=== PATIENT | female | born 1940 | race Caucasian/White ===

== ENCOUNTER 2024-10-10 14:43 | Inpatient (IN) | payer MEDICARE, SELFPAY ==
[2024-10-10] VITALS (10 sets, daily range): BP systolic 80–156; BP diastolic 40–100; PULSE 76–98; RESP 16–26; TEMP 36.1–37.1; O2SAT 92–98; BMI 23.6
--- NOTE | 2024-10-10 | ECG_ITS ---
Test Reason : ABD PAIN Blood Pressure : */* mmHG Vent. Rate : 77 BPM Atrial Rate : 77 BPM P-R Int : 146 ms QRS Dur : 74 ms QT Int : 396 ms P-R-T Axes : 51 10 58 degrees QTcB Int : 448 ms Sinus rhythm with Premature atrial complexes Otherwise normal ECG No previous ECGs available Referred By: Generic ED Physician Electronically Signed By: MADDIE JOHNSON
--- NOTE | ~2024-10-10 | CT_ITS ---
CLINICAL HISTORY: Severe diarrhea, severe left upper and left lower --- Additional Notes or Special I nstructions: R O diverticulitis, colitis, perforation CT abdomen and pelvis without contrast Comparison: None Findings: Examination is limited by without contrast. Lung bases are clear. No pleural effusion. Liver, Pancreas, Spleen show normal size, shape and attenuation on present unenhanced scan. No CBD dilatation. 2.2 cm nodule of the right adrenal gland is likely to be adenoma. No calcified gallstone in the gallbladder. The right kidney is unremarkable on the current noncontrast CT. Left total nephrectomy. The IVC, aorta and portal vein are within normal position and caliber. Severe Atherosclerosis calcification of the aorta. No evidence of retroperitoneal lymphadenopathy or ascites. Appendix is not visualized. 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 There is stool impaction of the rectum. Bowel wall thickening of the sigmoid colon and rectum with surrounding fat stranding. There is eccentric wall thickening of the rectum on axial image 63. Urinary bladder reveals normal lumen and schwab. Calcified uterine fibroid. Degenerative changes of the lumbar spine. Severe degenerative change of the left hip joint. IMPRESSION: Circumferential wall thickening of the sigmoid colon and rectum with surrounding fat stranding concerning for colitis. Area of eccentric wall thickening of the rectum. Correlation with colonoscopy findings is recommended to exclude a mass as indicated. No evidence of bowel perforation or abscess. Additional findings as above. This document has been electronically signed by: Jessica Bynum MD on 10/10/2024 19:28:31
[2024-10-10 15:03] LABS: MANUAL DIFF FLAG NO
[2024-10-10 15:05] LABS: Basophils Absolute Auto 0.1 X10*3/uL (0.0-0.2); Basophils Percent Auto 0.7 % (0-2); Eosinophils Absolute Auto 0.1 X10*3/uL (0.0-0.4); Hemoglobin 15.8 g/dl (12.0-16.0); Imm Gran Abs Auto 0.04 X10*3/uL (0.00-0.03); Imm Gran Pct Auto 0.4 % (0.0-0.4); Lymphocytes Absolute Auto 3.4 X10*3/uL (1.2-4.9); Lymphocytes Percent Auto 34.7 % (20-40); Mean Corpuscular HGB Conc 32.9 g/dl (31.0-35.0); Mean Corpuscular Hemoglobin 30.7 pg (27.0-33.0); Mean Corpuscular Volume 93.4 fL (80.0-98.0); Monocytes Absolute Auto 0.7 X10*3/uL (0.1-1.2); Monocytes Percent Auto 6.7 % (2-11); Neutrophils Absolute Auto 5.5 x10*3/uL (2.0-8.3); Neutrophils Percent Auto 56.5 % (45-73); Platelet Count 263 X10*3/uL (160-400); Red Blood Count 5.14 X10*6/uL (4.20-5.50); Red Cell Distribution Width 13.3 % (11.0-16.0); White Blood Count 9.7 X10*3/uL (4.8-10.8)
[2024-10-10 15:32] LABS: Alanine Aminotransferase 19 U/L (0-31); Albumin Level 4.1 g/dL (3.5-5.0); Alkaline Phosphatase 305 U/L (39-117); Anion Gap 21 (12-20); Aspartate Amino Transferase 27 U/L (5-31); Bilirubin Direct 0.2 mg/dL (0.0-0.5); Bilirubin Total 0.5 mg/dL (0.0-1.0); Blood Urea Nitrogen 35 mg/dL (9-16); Calcium 10.9 mg/dL (8.4-10.2); Carbon Dioxide 18 mmol/L (22-29); Chloride 106 mmol/L (96-108); Creatinine Clr Calc Pharmacy 31.4; Estimated Glomerular Filt Rate 45; Glucose Random 151 mg/dL (60-115); Lipase 47 U/L (8-78); Magnesium 2.5 mg/dL (1.6-2.6); Potassium 4.2 mmol/L (3.3-5.1); Sodium 141 mmol/L (135-145); Total Protein 7.2 g/dL (6.5-8.0)
[2024-10-10 15:48] LABS: Troponin-I High Sensitivity 2.9 ng/L (<3.5-17.0)
--- NOTE | 2024-10-10 15:49 | PC.NURSE ---
Patient presents to the ED from home c/o abdominal pain with nausea nonbloody V/D. Patient attempted to use bathroom at home and had witnessed syncopal episode, no fall. Symptoms started today. Patient had multiple episodes of large diahrrea. Stool was soft and became watery after 3 incontinence episodes. Abdomen soft non distended, + bowel sounds. Patient has 20G in left AC currently running NaCl 1 liter. blood collected/sent to lab. Stool sample collected and sent to lab. Patient still nauseous with dry heaving, no vomiting at this time. Daughter at bedside. Plan of care on going
--- NOTE | 2024-10-10 16:05 | ED.GENADULT ---
HPI - General Adult General Chief complaint: General Medical Stated complaint: SYNCOPAL EPISODE NAUSEA VOMITING Time Seen by Provider: 10/10/24 16:05 Source: patient and family (Daughter-Gayla) Mode of arrival: EMS Limitations: other (Memory deficits) History of Present Illness ED Provider: Dr. 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 Information came from the patient and the patient's daughter Gayla who is here in the emergency department with the patient. Breakfast this morning. She went out to lunch with her family and also ate a significant amount of food-the daughter states that she ate much more than usual got home at around 14:00 hours she had a sudden urge to move her bowels and had a large diarrheal stool. She then had a 2nd large diarrheal stool. She got up to try to wash her hands and felt lightheaded and dizzy as if she was going to pass out. The daughter was in the bathroom with the patient and lower the patient floor. The daughter states the patient had a loss of consciousness that lasted a proximally 5-10 minutes until the paramedics arrived on the scene. Here in the emergency department the patient had multiple episodes of loose watery stool-large volumes according to the nurse. There was no blood in the stool. The patient states that she has constipation that varies with diarrhea and she believes that she may have colon cancer but has refused getting a colonoscopy that has not been evaluated for chronic constipation/diarrhea. Review of systems was negative for fever, chills, cough, chest pain, shortness of breath, frequency, urgency or dysuria Related Data Allergies Allergy/AdvReac Type Severity Reaction Status Date / Time Gadolinium-Containing Allergy Unknown DIFFICULTY Verified 10/10/24 14:49 Contrast Medi BREATHING [GADOLINIUM-CONTAINING CONTRAST] Review of Systems Review of Systems: Yes all other systems are reviewed and are negative [facility] Past Medical History [facility] Narrative: Social history: She denies tobacco, alcohol and drug use. Social History Social History (System 03/15/23 @ 13:28 by Pilar Byers) Smoked in Last 30 Days: No Use of substances other than those prescribed or required for medical reasons: No Advance Directives: No Advance Directives Information Provided: No Do you have a plan to hurt others: No Plan Physical Exam ED Vital Signs: Vital Signs - 24 hr 10/10/24 14:57 10/10/24 15:12 10/10/24 16:11 Temperature 97.0 F 97.8 F Pulse Rate 86 76 83 Respiratory Rate 26 H 18 18 Blood Pressure 120/100 H 118/54 L 131/80 Pulse Oximetry 97 98 Oxygen Delivery Method Room Air Room Air 10/10/24 17:03 10/10/24 17:46 10/10/24 18:44 Temperature 98.3 F Pulse Rate 87 89 Respiratory Rate 18 16 16 Blood Pressure 126/81 Pulse Oximetry 97 93 Oxygen Delivery Method Room Air Room Air 10/10/24 18:49 10/10/24 19:50 Temperature 98.8 F Pulse Rate 86 Respiratory Rate 18 19 Blood Pressure 155/75 H Pulse Oximetry 92 Oxygen Delivery Method Room Air BMI result Body Mass Index 23.6 Vital signs revealed elevated respiratory rate of 26, elevated blood pressure 120/100 that has 97% on room air. Exam: General: Awake, alert , very anxious, does answer questions appropriately but sometimes defers to her daughter to help answer the question Head: Normocephalic, atraumatic EENT: PERRL, Lids normal, sclera normal, conjunctiva normal, nose normal , ears normal, throat without erythema or exudates Neck: Supple, no adenopathy Lung: breath sounds symmetric, no wheezing, rales or rhonchi Chest: symmetric movement, nontender Heart: regular rate and rhythm, normal S1, S2 no murmurs or rubs Abdomen: soft, moderate left upper quadrant tenderness, moderate to severe left lower quadrant tenderness, mild diffuse tenderness, normoactive bowel sounds, there is voluntary guarding when pushing on your left lower quadrant area but no involuntary guarding and no rebound Back: no vertebral tenderness, no CVAT Extremities: no deformities, she has difficulty moving her left lower extremity secondary to chronic left hip pain. Neuro: Awake, alert, oriented, normal speech, cranial nerves intact, moves all extremities symmetrically Psych: Pleasant, cooperative Medications Administered Discontinued Medications Generic Name Dose Route Start Last Admin Trade Name Freq PRN Reason Stop Dose Admin Diphenhydramine HCl 12.5 mg 10/10/24 16:53 10/10/24 17:02 Diphenhydramine Hcl 50 Mg/Ml Vial IVPUSH 10/10/24 16:54 12.5 mg ONCE ONE Administration Sodium Chloride 1,000 mls @ 999 mls/hr 10/10/24 16:19 10/10/24 19:25 Ns IV 10/10/24 17:19 Infused .Q1H1M STA Infusion Metoclopramide HCl 10 mg 10/10/24 16:53 10/10/24 17:02 Metoclopramide Hcl 10 Mg/2 Ml Vial IVPUSH 10/10/24 16:54 10 mg ONCE STA Administration Morphine Sulfate 2 mg 10/10/24 16:39 10/10/24 17:03 Morphine Sulfate 2 Mg/Ml Cartridge IVPUSH 10/10/24 16:40 2 mg ONCE ONE Administration Protocol Morphine Sulfate 2 mg 10/10/24 18:41 10/10/24 18:49 Morphine Sulfate 2 Mg/Ml Cartridge IVPUSH 10/10/24 18:42 2 mg ONCE ONE Administration Protocol Medical Decision Making Medical Decision Making MDM Narrative: 84-year-old female with a history of hypertension, benign left benign tumor with nephrectomy 15 years prior, TIA, left hip fracture 30 years prior with chronic left hip pain, appendectomy who presents emergency department for evaluation of sudden onset of nausea, vomiting, abdominal pain and syncope. Symptoms started at 14:00 hours after the patient ate lunch. Patient had 2 large diarrheal stools, had nausea with no vomiting, got up to wash her hands and had a witnessed syncopal episode by her daughter who was in the bathroom with the patient. Daughter lowered the patient to the floor. Patient had a proximally 5-10 minutes of loss of consciousness. Since presenting to the emergency department she is complaining of severe left lower abdominal pain, nausea in his had multiple episodes of large volume loose watery stools. Vital signs did reveal an elevated respiratory rate but I believe this is secondary to her anxiety. Some revealed left upper quadrant tenderness and moderate to severe left lower quadrant tenderness. Differential diagnosis: ?Includes but is not limited to viral syndrome, COVID-19, influenza, RSV, viral gastroenteritis, colitis, diverticulitis, perforation, pancreatitis, C difficile colitis, infectious diarrhea, malignancy, vasovagal syncope, anemia, electrolyte abnormalities Course: 17:08 My independent interpretation patient's laboratory evaluation is as follows: WBCs normal 9700 with a normal differential, no anemia with an H&H of 15.8 and 40.0. Bicarb low 18. Elevated anion gap 21. Elevated BUN 35 with a normal creatinine of 1.15. Glucose elevated 151. Alk-phos elevated 305. LFTs were normal. High sensitive troponin I was detectable but not elevated at 2.9. Lipase was normal. GI panel and C difficile PCR are pending. Your makes it worse twelve EKG was unremarkable. Given the severity of her pain and tenderness I did order a CT scan of the abdomen pelvis without IV contrast (the patient only has 1 kidney and she is concerned about getting IV contrast). Patient received Zofran 4 mg IV by the paramedics but she still having nausea and pain. I ordered morphine 2 mg IV, Reglan 5 mg IV and Benadryl 12.5 mg IV. She was also ordered to get normal saline IV x1 L. The patient continues to have large volume diarrheal output therefore I ordered a rectal tube. 19:51 My interpretation patient's laboratory evaluation is as follows: WBC was normal 9700 with no left shift. Bicarb was low 18. Anion gap was elevated 21. BUN was elevated 35 with a normal creatinine of 1.15 with a low GFR of 45. Glucose was elevated 151. Alk-phos elevated 305. High sensitive troponin I was detectable but not elevated at 2.9, repeat 2 hour has been ordered for 17:00 hours. LFTs were normal. Lipase was normal. Patient got some relief with the above treatment she states that her pain is still moderate and she is requesting a another dose of pain medications therefore she was given morphine 4 mg IV. 22:52 Repeat 2 hour troponin was below detectable limits suggesting the patient did not have myocardial injury is the cause for syncopal episode. The CT scan of the patient's abdomen pelvis without IV contrast is consistent with sigmoid colitis. Given this finding I did order blood cultures x2 and lactic acid. Patient will be treated with Levaquin 500 mg IV and Flagyl 500 mg IV. Patient continues to put a significant amount of diarrhea of the rectal tube. C diff studies were negative GI panel is pending. I did discuss admission with the covering hospitalist, Dr. Todd and the patient will be admitted for further management. Admission/Observation Consideration of admission/observation: Escalation of care including admission/observation considered (Yes) Consult Healthcare Provider Management of the patient was discussed with: Hospitalist (Dr. Todd) Lab Data MDM Lab Attestation statement: I reviewed the patient's lab results. 10/10/24 14:57 10/10/24 14:57 Labs: Lab Results 10/10/24 10/10/24 10/10/24 Range/Units 14:57 15:30 17:27 WBC 9.7 (4.8-10.8) X10*3/uL RBC 5.14 (4.20-5.50) X10*6/uL Hgb 15.8 (12.0-16.0) g/dl Hct 48.0 H (37.0-47.0) % MCV 93.4 (80.0-98.0) fL MCH 30.7 (27.0-33.0) pg MCHC 32.9 (31.0-35.0) g/dl RDW 13.3 (11.0-16.0) % Plt Count 263 (160-400) X10*3/uL MPV 11.0 (9.4-12.3) fL Immature Gran % (Auto) 0.4 (0.0-0.4) % Neut % (Auto) 56.5 (45-73) % Lymph % (Auto) 34.7 (20-40) % [place] % (Auto) 6.7 (2-11) % Eos % (Auto) 1.0 (0-4) % Baso % (Auto) 0.7 (0-2) % Lymph # (Auto) 3.4 (1.2-4.9) X10*3/uL [place] # (Auto) 0.7 (0.1-1.2) X10*3/uL Eos # (Auto) 0.1 (0.0-0.4) X10*3/uL Baso # (Auto) 0.1 (0.0-0.2) X10*3/uL Abs Immat Gran (auto) 0.04 H (0.00-0.03) X10*3/uL Absolute Neuts (auto) 5.5 (2.0-8.3) x10*3/uL Absolute Nucleated RBC 0.000 (0.0-0.012) X10*3/uL Nucleated RBC % (auto) 0.0 (0.0-0.2) /100WBC Sodium 141 (135-145) mmol/L Potassium 4.2 (3.3-5.1) mmol/L Chloride 106 (96-108) mmol/L Carbon Dioxide 18 L (22-29) mmol/L Anion Gap 21 H (12-20) BUN 35 H (9-16) mg/dL Creatinine 1.15 (0.5-1.4) mg/dL Estim Creat Clear Calc 31.4 Estimated GFR 45 Random Glucose 151 H (60-115) mg/dL Calcium 10.9 H (8.4-10.2) mg/dL Magnesium 2.5 (1.6-2.6) mg/dL Total Bilirubin 0.5 (0.0-1.0) mg/dL Direct Bilirubin 0.2 (0.0-0.5) mg/dL AST 27 (5-31) U/L ALT 19 (0-31) U/L Alkaline Phosphatase 305 H (39-117) U/L Troponin I High Sens 2.9 (<3.5-17.0) ng/L Total Protein 7.2 (6.5-8.0) g/dL Albumin 4.1 (3.5-5.0) g/dL Lipase 47 (8-78) U/L C. difficile Tox B Gene NEGATIVE (Negative) Influenza Type A (PCR) NEGATIVE (Negative) Influenza Type B (PCR) NEGATIVE (Negative) RSV RNA Qual (PCR) NEGATIVE (Negative) SARS-CoV-2 RNA (RT-PCR) NEGATIVE (Negative) 10/10/24 Range/Units 19:39 WBC (4.8-10.8) X10*3/uL RBC (4.20-5.50) X10*6/uL Hgb (12.0-16.0) g/dl Hct (37.0-47.0) % MCV (80.0-98.0) fL MCH (27.0-33.0) pg MCHC (31.0-35.0) g/dl RDW (11.0-16.0) % Plt Count (160-400) X10*3/uL MPV (9.4-12.3) fL Immature Gran % (Auto) (0.0-0.4) % Neut % (Auto) (45-73) % Lymph % (Auto) (20-40) % [place] % (Auto) (2-11) % Eos % (Auto) (0-4) % Baso % (Auto) (0-2) % Lymph # (Auto) (1.2-4.9) X10*3/uL [place] # (Auto) (0.1-1.2) X10*3/uL Eos # (Auto) (0.0-0.4) X10*3/uL Baso # (Auto) (0.0-0.2) X10*3/uL Abs Immat Gran (auto) (0.00-0.03) X10*3/uL Absolute Neuts (auto) (2.0-8.3) x10*3/uL Absolute Nucleated RBC (0.0-0.012) X10*3/uL Nucleated RBC % (auto) (0.0-0.2) /100WBC Sodium (135-145) mmol/L Potassium (3.3-5.1) mmol/L Chloride (96-108) mmol/L Carbon Dioxide (22-29) mmol/L Anion Gap (12-20) BUN (9-16) mg/dL Creatinine (0.5-1.4) mg/dL Estim Creat Clear Calc Estimated GFR Random Glucose (60-115) mg/dL Calcium (8.4-10.2) mg/dL Magnesium (1.6-2.6) mg/dL Total Bilirubin (0.0-1.0) mg/dL Direct Bilirubin (0.0-0.5) mg/dL AST (5-31) U/L ALT (0-31) U/L Alkaline Phosphatase (39-117) U/L Troponin I High Sens < 2.7 (<3.5-17.0) ng/L Total Protein (6.5-8.0) g/dL Albumin (3.5-5.0) g/dL Lipase (8-78) U/L C. difficile Tox B Gene (Negative) Influenza Type A (PCR) (Negative) Influenza Type B (PCR) (Negative) RSV RNA Qual (PCR) (Negative) SARS-CoV-2 RNA (RT-PCR) (Negative) Independent Interpretation I performed an independent interpretation of an: EKG Interpretation: My independent interpretation patient's 12 EKG done on 07/13/2024 at 15:17 hours is as follows: Normal sinus rhythm with a rate of 77, normal TX interval, QRS duration QTC interval, occasional PAC, no significant T-wave abnormalities, no ST segment elevation or depression. There is no old EKG for comparison. Radiology Impression Discussion of test interpretation with radiology: I have reviewed the radiologist's reading. Radiologist Impression: CT abdomen and pelvis without contrast Comparison: None Findings: Examination is limited by without contrast. Lung bases are clear. No pleural effusion. Liver, Pancreas, Spleen show normal size, shape and attenuation on present unenhanced scan. No CBD dilatation. 2.2 cm nodule of the right adrenal gland is likely to be adenoma. No calcified gallstone in the gallbladder. The right kidney is unremarkable on the current noncontrast CT. Left total nephrectomy. The IVC, aorta and portal vein are within normal position and caliber. Severe Atherosclerosis calcification of the aorta. No evidence of retroperitoneal lymphadenopathy or ascites. Appendix is not visualized. 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 There is stool impaction of the rectum. Bowel wall thickening of the sigmoid colon and rectum with surrounding fat stranding. There is eccentric wall thickening of the rectum on axial image 63. Urinary bladder reveals normal lumen and schwab. Calcified uterine fibroid. Degenerative changes of the lumbar spine. Severe degenerative change of the left hip joint. IMPRESSION: Circumferential wall thickening of the sigmoid colon and rectum with surrounding fat stranding concerning for colitis. Area of eccentric wall thickening of the rectum. Correlation with colonoscopy findings is recommended to exclude a mass as indicated. No evidence of bowel perforation or abscess. Additional findings as above. This document has been electronically signed by: Jessica Bynum MD on 10/10/2024 19:28:31 Independent Historian Clinical information obtained from an independent historian. History obtained from or confirmed by: Other (Daughter-Gayla) Chronic Conditions Patient?s care impacted by: Hypertension Critical Care Time Critical Care Time Critical Care Time: Yes Total Critical Care Time: 35 Attestation: Critical Care: The patient was critically ill with a high probability of imminent or life threatening deterioration. I spent greater than 30 minutes of discontinuous time evaluating the patient,delivering critical care at the bedside, discussing and evaluating pertinent data with consultants. Critical care time does not include time spent performing separately billable procedures or teaching. Total time spent performing critical care was 35 minutes. Discharge Plan Discharge Print Language: Wolof
--- NOTE | 2024-10-10 16:15 | PC.NURSE ---
3rd large bout of diarrhea. overfilling bedpan. MD at bedside and aware of volume loss. Pt remains alert, following commands requires frequent reassurance. LLQ tender.
[2024-10-10] MEDS: diphenhydrAMINE HCL 50 MG/ML VIAL 12.5 MG IVPUSH (17:02)
[2024-10-10] MEDS: Metoclopramide HCl 10 MG/2 ML VIAL IVPUSH (17:02)
[2024-10-10] MEDS: 0.9 % Sodium Chloride 1,000 ML 999 ML IV (17:02)
[2024-10-10] MEDS: Morphine Sulfate 2 MG/ML CARTRIDGE IVPUSH ×2 (17:03→18:49)
--- NOTE | 2024-10-10 17:22 | PC.NURSE ---
Diarrhea continues for patient, rectal tube placed and draining stool at this time. Yeimy care provided. Patient medicated per provider orders. Reglan administered + effect. Morphine administered, effectiveness pending. VSS and up to date.
[2024-10-10 18:14] LABS: Influenza A PCR NEGATIVE (Negative); Influenza B PCR NEGATIVE (Negative); Resp Syncy Virus RNA Qual PCR NEGATIVE (Negative); SARS COV2 PCR INHOUSE NEGATIVE (Negative)
--- NOTE | 2024-10-10 18:52 | PC.NURSE ---
Rectal tube leaked. Patient cleaned up and new rectal tube placed, stool currently draining into bag. Patient c/o abdominal pain rated 9/10, administered morphine per provider, effectiveness pending.
--- NOTE | 2024-10-10 19:26 | PC.NURSE ---
assumed care of pt at 1900. report received from Nathaniel HANSEN.
[2024-10-10 19:39] LABS: CDiff Gene PCR NEGATIVE (Negative)
[2024-10-10 20:02] LABS: Troponin-I High Sensitivity < 2.7 ng/L (<3.5-17.0)
[2024-10-10] MEDS: metroNIDAZOLE/NS 500 MG/100 ML PIGGYBACK 100 MG IV (22:25)
[2024-10-10] MEDS: levoFLOXacin/D5W 500 MG/100 ML PIGGYBACK 100 MG IV (22:25)
[2024-10-10] MEDS: 0.9 % Sodium Chloride 1,000 ML 250 ML IV (22:28)
[2024-10-10 22:46] LABS: Lactic Acid 2.1 mmol/L (0.5-2.0)
--- NOTE | 2024-10-11 00:08 | P.HPHOSP_ITS ---
History of Present Illness Date of Service: 10/10/24 Attending physician on admission: Jack Todd Chief Complaint: abd pain, N/V/D, syncope Patient is an 84-year-old female with a past medical history significant for s/p left nephrectomy (benign lesion), HTN, history TIA, and history appy, who presented to the ED due to sudden onset of nausea, vomiting, diarrhea and left lower quadrant pain. The patient reports that she had breakfast and went out to lunch and 8 which more than her usual and when she returned home she had the sudden onset of her symptoms. She had 2 episodes of large volume diarrhea. Her daughter was present when she was standing up from the toilet and had a syncopal episode. The daughter was able to catch her and lower her to the ground slowly therefore no head strike. She was unconscious for 5-10 minutes prior to EMS arriving. She was 92% on room air, responsive to 4 L and now not requiring oxygen. On arrival she we will pale and diaphoretic. The patient reports that she has chronic alternating constipation and diarrhea. She has had an episode of colitis med years ago. She denies any chest pain, shortness breath, fever, chills currently. In the ED she continued to have large volumes of diarrhea and a rectal tube was placed. pt also reported to nursing staff that she is having difficult urinating. Review of Systems 2 Constitutional: Constitutional: Denies body ache(s), Denies chills, Denies fatigue, Denies fever(s) and Denies headache(s) Eyes: Eyes: Denies change in vision and Denies photophobia ENT: Denies headache(s), Denies nasal congestion, Denies nasal discharge and Denies sore throat Cardiovascular: Cardiovascular: Denies chest pain, Denies rapid heart rate, Denies leg edema, Denies lightheadedness and Denies dyspnea Respiratory: Respiratory: Denies chest congestion, Denies cough, Denies dyspnea and Denies wheezing Gastrointestinal: Gastrointestinal: Reports as per HPI Genitourinary: Genitourinary: Denies difficulty voiding, Denies dysuria and Denies urinary urgency Musculoskeletal: Musculoskeletal: Denies back pain Integumentary/Breasts: Skin/Breast: Denies rash Neurologic: Denies confusion and Denies headache(s) Psychiatric: Psychiatric: Denies confusion Endocrine: Endocrine: Denies fatigue Hematologic/Lymphatic: Hematologic/Lymphatic: Denies easy bleeding and Denies easy bruising Allergic/Immunologic: Allergic/Immunologic: Denies wheezing [facility] Medical History Hx TIA/stroke w/o resid HTN (hypertension) Surgical History History of appendectomy History of left nephrectomy Social History Household Members: None Housing: Apartment Do you presently have visiting nurse or other home services: No Patient Tobacco Use Status: Never used Tobacco Smoked in Last 30 Days: No Use of substances other than those prescribed or required for medical reasons: No Have you been hit, kicked, punched, or otherwise hurt by someone within the past year? If so, by whom?: No Do you feel safe in your current relationship?: Yes Is there a partner from a previous relationship who is making you feel unsafe now?: No Are you made to feel afraid or neglected: No Advance Directives: No Advance Directives Information Provided: No Do you have a plan to hurt others: No Plan Recently lost weight without trying: No Eating poorly because of decreased appetite: No Nutrition Risks: No Nutritional Risk Patient : No : No Poor oral hygiene: No Narrative: No smoking, alcohol or drug use Meds Allergies Allergy/AdvReac Type Severity Reaction Status Date / Time Gadolinium-Containing Allergy Unknown DIFFICULTY Verified 10/10/24 14:49 Contrast Medi BREATHING [GADOLINIUM-CONTAINING CONTRAST] Active Medications: Current Medications Acetaminophen (Acetaminophen 325 Mg Tablet) 975 mg PO Q6H PRN PRN Reason: Pain, Mild 1-3,fever,headache Calcium Carbonate (Calcium Carbonate 750 Mg Tab.Chew) 750 mg PO Q4H PRN PRN Reason: Heartburn Ceftriaxone Sodium (Ceftriaxone Sodium 1 Gm Vial) 1 gm IVPUSH Q24H [facility] Hydromorphone HCl (Hydromorphone Hcl 1 Mg/Ml Syringe) 0.25 mg IVPUSH Q4H PRN; Protocol PRN Reason: Pain, Severe (Pain Scale 7-10) Sodium Chloride (Ns) 1,000 mls @ 250 mls/hr IV .Q4H STA Stop: 10/11/24 02:07 Last Admin: 10/10/24 22:28 Dose: 250 mls/hr Metronidazole (Flagyl) 500 mg in 100 mls @ 100 mls/hr IV Q8H [facility] Magnesium Hydroxide (Milk Of Magnesia 30 Ml Oral.Susp) 30 ml PO DAILY PRN PRN Reason: Constipation Melatonin (Melatonin 3 Mg Tablet) 6 mg PO BEDTIME PRN PRN Reason: Insomnia Ondansetron HCl (Ondansetron Hcl 4 Mg/2 Ml Vial) 4 mg IVPUSH Q8H PRN PRN Reason: Nausea and Vomiting Oxycodone HCl (Oxycodone Hcl Immed Release 5 Mg Tablet) 5 mg PO Q6H PRN PRN Reason: Pain, Moderate(Pain Scale 4-6) Sodium Chloride (0.9 % Sodium Chloride Flush 3 Ml Syringe) 3 ml IVFLUSH QSHIFT [facility] Physical Exam 2 Vital Signs and Narrative: Vital Signs: Last Vital Signs Temp 98.3 F 10/10/24 22:28 Pulse 98 10/10/24 22:28 Resp 16 10/10/24 22:28 BP 156/90 H 10/10/24 22:28 Pulse Ox 96 10/10/24 22:28 O2 Del Method Room Air 10/10/24 22:28 BMI result Body Mass Index 23.6 General: AOx3, no acute distress Resp: CTA bilaterally CVS: S1, S2, RRR GI: +BS, tender LLQ, no distention Skin: Warm, dry Neuro: Cranial nerves II-XII grossly intact bilaterally. Motor grossly intact bilaterally Extremities: No LE edema Psych: Appropriate affect Const: General: No confusion Orientation/consciousness: No confusion Eyes: Direct Ophthalmoscopy: No photophobia Neuro: General: No confusion Results Labs 10/10/24 14:57 10/10/24 14:57 Labs: Laboratory Results - last 24 hr 10/10/24 10/10/24 10/10/24 14:57 15:30 17:27 MCV 93.4 MCH 30.7 MCHC 32.9 RDW 13.3 Plt Count 263 MPV 11.0 Immature Gran % (Auto) 0.4 Neut % (Auto) 56.5 Lymph % (Auto) 34.7 [place] % (Auto) 6.7 Eos % (Auto) 1.0 Baso % (Auto) 0.7 Lymph # (Auto) 3.4 [place] # (Auto) 0.7 Eos # (Auto) 0.1 Baso # (Auto) 0.1 Abs Immat Gran (auto) 0.04 H Absolute Neuts (auto) 5.5 Absolute Nucleated RBC 0.000 Nucleated RBC % (auto) 0.0 Anion Gap 21 H Estim Creat Clear Calc 31.4 Estimated GFR 45 Random Glucose 151 H Lactic Acid Calcium 10.9 H Magnesium 2.5 Total Bilirubin 0.5 Direct Bilirubin 0.2 AST 27 ALT 19 Alkaline Phosphatase 305 H Total Protein 7.2 Albumin 4.1 Lipase 47 C. difficile Tox B Gene NEGATIVE Influenza Type A (PCR) NEGATIVE Influenza Type B (PCR) NEGATIVE RSV RNA Qual (PCR) NEGATIVE SARS-CoV-2 RNA (RT-PCR) NEGATIVE 10/10/24 22:20 MCV MCH MCHC RDW Plt Count MPV Immature Gran % (Auto) Neut % (Auto) Lymph % (Auto) [place] % (Auto) Eos % (Auto) Baso % (Auto) Lymph # (Auto) [place] # (Auto) Eos # (Auto) Baso # (Auto) Abs Immat Gran (auto) Absolute Neuts (auto) Absolute Nucleated RBC Nucleated RBC % (auto) Anion Gap Estim Creat Clear Calc Estimated GFR Random Glucose Lactic Acid 2.1 H* Calcium Magnesium Total Bilirubin Direct Bilirubin AST ALT Alkaline Phosphatase Total Protein Albumin Lipase C. difficile Tox B Gene Influenza Type A (PCR) Influenza Type B (PCR) RSV RNA Qual (PCR) SARS-CoV-2 RNA (RT-PCR) Assessment and Plan (1) Colitis: Status: Acute (2) Syncope: Status: Acute (3) Urinary retention: Status: Acute (4) Metabolic acidosis: Status: Acute (5) Lactic acidosis: Status: Acute (6) Adrenal gland neoplasm: Status: Acute Plan Patient is an 84-year-old female with a past medical history significant for s/p left nephrectomy (benign lesion), HTN, history TIA, and history appy, who presented to the ED due to sudden onset of nausea, vomiting, diarrhea and left lower quadrant pain followed by syncopal episode. Acute sigmoid colitis - WBC 9.7, tachypneic secondary to anxiety, no tachycardia, no fever, lactic acid 2.1 (likely due to hypoxic episode), blood cultures x2 pending, no sepsis - abdominopelvic CT with circumferential wall thickening of the sigmoid colon and rectum with surrounding fat stranding concerning for colitis. Area of eccentric wall thickening of the rectum. Correlation with colonoscopy findings is recommended to exclude a mass as indicated. No evidence of bowel perforation or abscess. Incidental I did mention a 2.2 cm nodule of the right adrenal gland, likely to be an adenoma. 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 Quality Stroke Does the patient have a stroke diagnosis?: No VTE Prior VTE?: No VTE Risk Level:: Medical - moderate - high VTE Device Contraindication: N/A - Device Ordered VTE Drug Contraindication: Treatment Not Indicated
--- NOTE | 2024-10-11 00:12 | PC.NURSE ---
pt cleaned up and linens changed
[2024-10-11 00:24] LABS: Reflex Lactate? Lactic Acid Added
[2024-10-11] MEDS: 0.9 % Sodium Chloride Flush 3 ML SYRINGE IVFLUSH (00:48)
[2024-10-11] MEDS: cefTRIAXone sodium 1 GM VIAL IVPUSH ×2 (00:48→23:16)
[2024-10-11 01:08] LABS: ~Lactic Acid-LAB USE ONLY 3.7 mmol/L (0.5-2.0)
--- NOTE | 2024-10-11 01:12 | PM.EVENT ---
Event Note Date of Service: 10/11/24 Event Note: repeat lactic acid 3.7 from 2.1, initally though to be due to hypoxic episode. has already received 2L NS in ED and has been on NS 250ml/hr. pt does not have a known hx of CHF, but due to the concern for fluid overload, will switch to LR 100ml/hr now. BP stable, no fluid bolus at this time. discussed case and advised by Dr Todd Time Spent With Patient Time: Total time managing care of this patient today ____ minutes.
[2024-10-11 02:22] VITALS: BMI 23.6
[2024-10-11 02:40] VITALS: BP 182/84; PULSE 87; RESP 18; TEMP 36.4; O2SAT 95
[2024-10-11 02:43] LABS: Reflex Lactate? 2 Y
[2024-10-11] MEDS: LORazepam 0.5 MG TABLET PO (03:07)
[2024-10-11 03:10] LABS: Lactic Acid 3.7 mmol/L (0.5-2.0)
[2024-10-11] MEDS: Lactated Ringers 1,000 ML 100 ML IVCONT ×3 (03:15→21:39)
[2024-10-11 04:00] VITALS: BP 180/88; PULSE 96; RESP 18; TEMP 37.1; O2SAT 93
[2024-10-11 04:18] VITALS: BP 180/88
[2024-10-11 04:51] LABS: Reflex Lactate? Lactic Acid Added
[2024-10-11] MEDS: hydrALAZINE HCl 20 MG/ML VIAL 5 MG IVPUSH (04:56)
[2024-10-11] MEDS: metroNIDAZOLE/NS 500 MG/100 ML PIGGYBACK 100 MG IV ×3 (05:04→21:38)
[2024-10-11 05:52] LABS: Appearance Urine Clear; Color Urine Dark Yellow; Glucose Urine UA 250 mg/dL (Negative); Leukocyte Esterase Urine Small (1+) (Negative); Nitrite Urine Negative (Negative); Specific Gravity - Urine 1.015 (1.005-1.025); UMIC TRIGGER UACC YES; Urine Blood Negative (Negative); Urine Ketones Trace mg/dL (Negative); Urine Protein 30 (1+) mg/dL (Neg-Trace)
[2024-10-11 06:06] LABS: Bacteria Urine None Seen (None Seen); Hyaline Casts Urine 0-2 /LPF (0-2); RBC Urine 0-2 /HPF (0-2); Squamous Epithelial Cell Urine 0-2 /HPF (0-2); UACC Culture Trigger YES; WBC Urine 0-5 /HPF (0-5)
[2024-10-11 06:14] LABS: ~Lactic Acid-LAB USE ONLY 2.9 mmol/L (0.5-2.0)
[2024-10-11 06:32] LABS: MANUAL DIFF FLAG NO
[2024-10-11 06:39] LABS: Basophils Absolute Auto 0.1 X10*3/uL (0.0-0.2); Basophils Percent Auto 0.3 % (0-2); Hematocrit 44.6 % (37.0-47.0); Hemoglobin 14.6 g/dl (12.0-16.0); Imm Gran Abs Auto 0.08 X10*3/uL (0.00-0.03); Imm Gran Pct Auto 0.5 % (0.0-0.4); Lymphocytes Absolute Auto 0.6 X10*3/uL (1.2-4.9); Lymphocytes Percent Auto 3.7 % (20-40); Mean Corpuscular HGB Conc 32.7 g/dl (31.0-35.0); Mean Corpuscular Hemoglobin 30.4 pg (27.0-33.0); Mean Corpuscular Volume 92.9 fL (80.0-98.0); Mean Platelet Volume 11.1 fL (9.4-12.3); Monocytes Absolute Auto 1.5 X10*3/uL (0.1-1.2); Monocytes Percent Auto 8.3 % (2-11); Neutrophils Absolute Auto 15.2 x10*3/uL (2.0-8.3); Neutrophils Percent Auto 87.2 % (45-73); Platelet Count 230 X10*3/uL (160-400); Red Cell Distribution Width 13.7 % (11.0-16.0); White Blood Count 17.4 X10*3/uL (4.8-10.8)
--- NOTE | 2024-10-11 06:44 | P.CNGI_ITS ---
History of Present Illness Data of Consult Service Date: 10/11/24 Requesting physician: Ezra Queen Primary Care Provider: Nonstaff Physician HPI Reason for consult: abn imaging 84-year-old female with a hx of s/p left nephrectomy (benign lesion), HTN, history TIA, and appendectomy, who I am seeing for assessment for abn bowel habit and imaging. Patient had noted an attack of large vol diarrhea after lunch yesterday. It was associated with nausea and non bloody emesis. The diarrhea was non bloody. She had a syncopal episode and was unresponsive for a short time. She denies any chest pain, shortness breath, fever, chills currently. no abdominal pain. she has never had colonoscopy, CT imaging: thickening of rectum and sigmoid- constipation Review of Systems 2 Review of Systems: Constitutional : No Weight loss, No Fever, No Chills ENT/Mouth : No sore throat, No Rhinorrhea Eyes: No Swelling, No Redness Cardiovascular : No Chest Pain, No SOB, No Edema Respiratory : No Cough, No Sputum, No Wheezing Gastrointestinal : see HPI Genitourinary : NO Dysuria, No Urinary Frequency, No Hematuria, No Urgency Musculoskeletal : no joint pain, No Myalgias, No Joint Swelling Skin : No Skin Lesions, No rash Neuro : No Weakness, No Numbness, No Dizziness, No Headache Psych : No Anxiety/Panic, No Depression Heme/Lymph: No Bruising, No Lymphadenopathy Endocrine : No Polyuria, No Polydipsia All other systems reviewed and are negative. [facility] Past Medical History Medical History Hx TIA/stroke w/o resid HTN (hypertension) Family History Pertinent family history: no Fh of CRC Surgical History Surgical History History of appendectomy History of left nephrectomy Social History Social History Household Members: None Housing: Apartment Do you presently have visiting nurse or other home services: No Patient Tobacco Use Status: Never used Tobacco Smoked in Last 30 Days: No Use of substances other than those prescribed or required for medical reasons: No Currently Displaying Signs/Symptoms of Drug Intoxication Withdrawal: No Have you been hit, kicked, punched, or otherwise hurt by someone within the past year? If so, by whom?: No Do you feel safe in your current relationship?: Yes Is there a partner from a previous relationship who is making you feel unsafe now?: No Are you made to feel afraid or neglected: No Advance Directives: No Advance Directives Information Provided: No Do you have a plan to hurt others: No Plan Recently lost weight without trying: No Eating poorly because of decreased appetite: No Nutrition Risks: No Nutritional Risk Patient : No : No Poor oral hygiene: No Meds Allergies Allergy/AdvReac Type Severity Reaction Status Date / Time Gadolinium-Containing Allergy Unknown DIFFICULTY Verified 10/10/24 14:49 Contrast Medi BREATHING [GADOLINIUM-CONTAINING CONTRAST] Active Medications: Current Medications Acetaminophen (Acetaminophen 325 Mg Tablet) 975 mg PO Q6H PRN PRN Reason: Pain, Mild 1-3,fever,headache Calcium Carbonate (Calcium Carbonate 750 Mg Tab.Chew) 750 mg PO Q4H PRN PRN Reason: Heartburn Ceftriaxone Sodium (Ceftriaxone Sodium 1 Gm Vial) 1 gm IVPUSH Q24H [facility] Last Admin: 10/11/24 00:48 Dose: 1 gm Hydromorphone HCl (Hydromorphone Hcl 1 Mg/Ml Syringe) 0.25 mg IVPUSH Q4H PRN; Protocol PRN Reason: Pain, Severe (Pain Scale 7-10) Metronidazole (Flagyl) 500 mg in 100 mls @ 100 mls/hr IV Q8H [facility] Last Infusion: 10/11/24 06:28 Dose: Infused Lactated Ringer's (Lr) 1,000 mls @ 100 mls/hr IVCONT .Q10H [facility] Last Infusion: 10/11/24 06:29 Dose: 100 mls/hr Magnesium Hydroxide (Milk Of Magnesia 30 Ml Oral.Susp) 30 ml PO DAILY PRN PRN Reason: Constipation Melatonin (Melatonin 3 Mg Tablet) 6 mg PO BEDTIME PRN PRN Reason: Insomnia Ondansetron HCl (Ondansetron Hcl 4 Mg/2 Ml Vial) 4 mg IVPUSH Q8H PRN PRN Reason: Nausea and Vomiting Oxycodone HCl (Oxycodone Hcl Immed Release 5 Mg Tablet) 5 mg PO Q6H PRN PRN Reason: Pain, Moderate(Pain Scale 4-6) Sodium Chloride (0.9 % Sodium Chloride Flush 3 Ml Syringe) 3 ml IVFLUSH QSHIFT [facility] Last Admin: 10/11/24 00:48 Dose: 3 ml Home Medications ?Medication ?Instructions ?Recorded ?Confirmed ?Last Taken ?Type acetaminophen 500 mg tablet 1,000 mg PO Q6H PRN hip pain 10/11/24 10/11/24 Unknown History amlodipine 5 mg tablet 5 mg PO DAILY 10/11/24 10/11/24 10/10/24 History aspirin 81 mg tablet,delayed 81 mg PO DAILY 10/11/24 10/11/24 10/10/24 History release lisinopril 5 mg tablet 5 mg PO DAILY 10/11/24 10/11/24 10/10/24 History Physical Exam 2 Vital Signs: Vital Signs: Last Vital Signs Temp 98.8 F 10/11/24 04:00 Pulse 96 10/11/24 04:00 Resp 18 10/11/24 04:00 BP 180/88 H 10/11/24 04:18 Pulse Ox 93 10/11/24 04:00 O2 Del Method Room Air 10/11/24 04:00 BMI result Body Mass Index 23.6 EXAM: GENERAL: The patient is well developed and nontoxic. VITAL SIGNS:see workflow HEENT: Nonicteric sclerae, PERRLA, EOMI. Oropharynx clear. Moist mucous membranes. Conjunctivae appear well perfused. No thyroid mass. CHEST: Chest wall is nontender. HEART: Regular rate and rhythm without murmurs. LUNGS: Clear to auscultation bilaterally. ABDOMEN: Soft, positive bowel sounds, nontender, no organomegaly.no flank tenderness SKIN: No rash, no excessive bruising, petechiae, or purpura. NEUROLOGIC: Cranial nerves II-XII intact without motor/sensory deficit. Psych: normal affect Results Labs 10/11/24 06:00 10/11/24 06:00 Labs: Short CBC 10/10/24 10/11/24 Range/Units 14:57 06:00 WBC 9.7 17.4 H (4.8-10.8) X10*3/uL Hgb 15.8 14.6 (12.0-16.0) g/dl Hct 48.0 H 44.6 (37.0-47.0) % Plt Count 263 230 (160-400) X10*3/uL BMP 10/10/24 14:57 Sodium 141 Potassium 4.2 Chloride 106 Carbon Dioxide 18 L BUN 35 H Creatinine 1.15 Calcium 10.9 H Liver Function 10/10/24 Range/Units 14:57 Total Bilirubin 0.5 (0.0-1.0) mg/dL Direct Bilirubin 0.2 (0.0-0.5) mg/dL AST 27 (5-31) U/L ALT 19 (0-31) U/L Alkaline Phosphatase 305 H (39-117) U/L Albumin 4.1 (3.5-5.0) g/dL Urine 10/11/24 Range/Units 05:42 Urine Color Dark Yellow Urine Appearance Clear Urine pH 5.0 (5.0-9.0) Ur Specific [place] 1.015 (1.005-1.025) Urine Protein 30 (1+) H (Neg-Trace) mg/dL Urine Glucose (UA) 250 H (Negative) mg/dL Imaging CT scan - abdomen: Attestation: I personally reviewed and interpreted this imaging study as follows: (thickened rectum and sigmoid - constipation ) Assessment and Plan (1) Colitis: Status: Acute Plan 1/ Abn imaging, never had colonsocopy, may have acute colitis with underlying mass PLAN: 1/ Cont with hydration and IV fluids, antibiotics 2/ depending on clinical features can consider colonoscopy on saturday Procedures Date of Service Date of Service: 10/11/24
[2024-10-11 06:54] LABS: Anion Gap 15 (12-20); Blood Urea Nitrogen 31 mg/dL (9-16); Calcium 9.3 mg/dL (8.4-10.2); Carbon Dioxide 20 mmol/L (22-29); Chloride 109 mmol/L (96-108); Creatinine Clr Calc Pharmacy 42.5; Estimated Glomerular Filt Rate > 60; Glucose Random 199 mg/dL (60-115); Sodium 140 mmol/L (135-145)
--- NOTE | 2024-10-11 07:11 | PC.NURSE ---
late entry: upon arriving to the unit, pt was extremely anxious, A&Ox4, BP elevated 182/84.MD. Todd notified of the situation. One time dose of Ativan was ordered and given to pt at 03:07 w/ minimal effect, see MAR. One after later BP was rechecked and was 180/88. Per pt takes 2 BP medications daily at home. MD Todd was notified again about the increased BP. One time dose of Hydralazine IV was ordered and given to pt at 04:56, w/ good effect, see MAR. Pt's BP went down to 162/72. Pt appears more calm and comfortable in bed. Will continue to monitor.
--- NOTE | 2024-10-11 07:21 | PC.NURSE ---
Late entry: Pt c/o of discomfort to bladder, unable to void. Pt bladder scan at 04:42 for 698mls. MD Todd was notified of the situation. S traight cath and urine sample was ordered, per . Pt was then straight cath at 04:50 w/ 800mls of concentrated arielle color urine. Pt will be due to void by 11:30. Will continue to monitor pt's output.
[2024-10-11 07:30] VITALS: BP 172/73; PULSE 89; RESP 18; TEMP 36.8; O2SAT 93
[2024-10-11 07:51] LABS: Reflex Lactate? 2 Y
--- NOTE | 2024-10-11 08:21 | PHA.MEDREC ---
Pharmacy Consult ? Medication Reconciliation Pharmacy has completed the medication reconciliation, spoke to patient who confirmed all medications and doses.
[2024-10-11 08:33] LABS: ~Lactic Acid-LAB USE ONLY 2.1 mmol/L (0.5-2.0)
[2024-10-11] MEDS: amLODIPine Besylate 5 MG TABLET PO (08:37)
[2024-10-11] MEDS: Aspirin Enteric Coated 81 MG TABLET.DR PO (08:38)
[2024-10-11] MEDS: lisinopriL 5 MG TABLET PO (08:38)
[2024-10-11 09:28] LABS: Adenovirus F 40/41 Not Detected (Not Detect.); Astrovirus Not Detected (Not Detect.); Campylobacter Not Detected (Not Detect.); Cryptosporidium Not Detected (Not Detect.); Cyclospora cayetanensis Not Detected (Not Detect.); E. coli EAEC Not Detected (Not Detect.); E. coli EPEC Not Detected (Not Detect.); E. coli ETEC Not Detected (Not Detect.); E. coli STEC Not Detected (Not Detect.); Entamoeba histolytica Not Detected (Not Detect.); Giardia lamblia Not Detected (Not Detect.); Norovirus GI/GII Not Detected (Not Detect.); Plesiomonas shigelloides Not Detected (Not Detect.); Rotavirus A Not Detected (Not Detect.); Salmonella Not Detected (Not Detect.); Sapovirus Not Detected (Not Detect.); Shigella sp./EIEC Not Detected (Not Detect.); Vibrio Not Detected (Not Detect.); Vibrio Cholerae Not Detected (Not Detect.); Yersinia enterocolitica Not Detected (Not Detect.)
--- NOTE | 2024-10-11 11:52 | PM.EVENT ---
Event Note Date of Service: 10/11/24 Event Note: Chart reviewed patient examined. Agree with H&P and plan as per night float. Discussed with GI. Plan implemented Time Spent With Patient Time: Total time managing care of this patient today ____ minutes.
[2024-10-11] MEDS: ondansetron HCL 4 MG/2 ML VIAL IVPUSH (13:02)
--- NOTE | 2024-10-11 15:15 | MHC.CM.PN ---
PT REPORTS SHE LIVES ALONE AND IS INDEPENDENT WITH CARE SHE HAS A CANE, WALKER AND ROLLATOR SHE USES DEPENDING ON SETTING COPY OF HCP REQUESTED PCP: GERARDO RUSSO IMM DELIVERED DCP: HOME NO SERVICES DAUGHTER TO TRANSPORT
[2024-10-11 16:00] VITALS: BP 176/79; PULSE 90; RESP 18; TEMP 37.6; O2SAT 94
[2024-10-11 20:00] VITALS: BP 148/96; PULSE 100; RESP 18; TEMP 36.8; O2SAT 94
[2024-10-12] VITALS (7 sets, daily range): BP systolic 156–183; BP diastolic 68–79; PULSE 79–83; RESP 16–18; TEMP 36.6–37.2; O2SAT 92–94
[2024-10-12] MEDS: metroNIDAZOLE/NS 500 MG/100 ML PIGGYBACK 100 MG IV ×3 (05:06→21:46)
[2024-10-12 05:41] LABS: Hemoglobin 13.7 g/dl (12.0-16.0); Mean Corpuscular HGB Conc 34.3 g/dl (31.0-35.0); Mean Corpuscular Hemoglobin 30.7 pg (27.0-33.0); Mean Corpuscular Volume 89.7 fL (80.0-98.0); Mean Platelet Volume 11.3 fL (9.4-12.3); Platelet Count 192 X10*3/uL (160-400); Red Blood Count 4.46 X10*6/uL (4.20-5.50); Red Cell Distribution Width 13.8 % (11.0-16.0); White Blood Count 14.3 X10*3/uL (4.8-10.8)
[2024-10-12 05:57] LABS: Anion Gap 14 (12-20); Blood Urea Nitrogen 20 mg/dL (9-16); Calcium 9.3 mg/dL (8.4-10.2); Carbon Dioxide 20 mmol/L (22-29); Chloride 108 mmol/L (96-108); Creatinine Clr Calc Pharmacy 57.4; Estimated Glomerular Filt Rate > 60; Glucose Random 114 mg/dL (60-115); Potassium 3.2 mmol/L (3.3-5.1); Sodium 139 mmol/L (135-145)
[2024-10-12 06:05] LABS: Band Neutrophils Percent 10 % (3-5); Lymphocytes Absolute Manual 1.3 X10*3/uL (1.2-4.9); Lymphocytes Percent Manual 9 % (20-40); Metamyelocytes Absolute 0.4 X10*3/uL; Metamyelocytes Percent 3 %; Monocytes Absolute Manual 0.1 X10*3/uL (0.1-1.2); Monocytes Percent Manual 1 % (2-11); Myelocytes Absolute 0.1 X10*/uL; Myelocytes Percent 1 %; Neutrophils Absolute Manual 12.3 X10*3/uL (2.0-8.3); Neutrophils Percent Manual 76 % (45-73); Platelet Estimate NORMAL (NORMAL); Platelet Morphology Comment NORMAL; RBC Morphology NOTED
[2024-10-12 06:06] LABS: Burr Cells 1+ (0-2) /OIF; Ovalocytes 1+ (5-14) /OIF
[2024-10-12 06:07] LABS: Dohle Bodies PRESENT; Smudge Cells PRESENT; Toxic Granulation PRESENT; Toxic Vacuolation PRESENT
--- NOTE | 2024-10-12 07:38 | P.PNIM_ITS ---
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; has not yet been out of bed Reports small amount of dark-colored urine output Denies dysuria Review of Systems Review of Systems: Yes all other systems are reviewed and are negative Physical Exam 2 Vital Signs: Vital Signs: Last Vital Signs Temp 97.8 F 10/12/24 03:38 Pulse 81 10/12/24 03:38 Resp 18 10/12/24 03:38 BP 170/72 H 10/12/24 03:38 Pulse Ox 93 10/12/24 03:38 O2 Del Method Room Air 10/12/24 03:38 BMI result Body Mass Index 23.6 General: AOx3, no acute distress Resp: CTA bilaterally CVS: S1, S2, RRR GI: +BS, NT, no distention Skin: Warm, dry Neuro: Cranial nerves II-XII grossly intact bilaterally. Motor grossly intact bilaterally. Extremities: No edema Psych: Appropriate affect Objective Data Active Medications Acetaminophen (Acetaminophen 325 Mg Tablet) 975 mg PO Q6H PRN PRN Reason: Pain, Mild 1-3,fever,headache Amlodipine Besylate (Amlodipine Besylate 5 Mg Tablet) 5 mg PO DAILY [facility]; Protocol Last Admin: 10/11/24 08:37 Dose: 5 mg Documented By: AMY Aspirin (Aspirin Enteric Coated 81 Mg Tablet.) 81 mg PO DAILY [facility] Last Admin: 10/11/24 08:38 Dose: 81 mg Documented By: AMY Calcium Carbonate (Calcium Carbonate 750 Mg Tab.Chew) 750 mg PO Q4H PRN PRN Reason: Heartburn Ceftriaxone Sodium (Ceftriaxone Sodium 1 Gm Vial) 1 gm IVPUSH Q24H [facility] Last Admin: 10/11/24 23:16 Dose: 1 gm Documented By: LYSZ Hydromorphone HCl (Hydromorphone Hcl 1 Mg/Ml Syringe) 0.25 mg IVPUSH Q4H PRN; Protocol PRN Reason: Pain, Severe (Pain Scale 7-10) Metronidazole (Flagyl) 500 mg in 100 mls @ 100 mls/hr IV Q8H [facility] Last Infusion: 10/12/24 06:09 Dose: Infused Documented By: LOU Lactated Ringer's (Lr) 1,000 mls @ 100 mls/hr IVCONT .Q10H [facility] Last Infusion: 10/12/24 06:09 Dose: 100 mls/hr Documented By: LOU Lisinopril (Lisinopril 5 Mg Tablet) 5 mg PO DAILY [facility]; Protocol Last Admin: 10/11/24 08:38 Dose: 5 mg Documented By: AMY Magnesium Hydroxide (Milk Of Magnesia 30 Ml Oral.Susp) 30 ml PO DAILY PRN PRN Reason: Constipation Melatonin (Melatonin 3 Mg Tablet) 6 mg PO BEDTIME PRN PRN Reason: Insomnia Ondansetron HCl (Ondansetron Hcl 4 Mg/2 Ml Vial) 4 mg IVPUSH Q8H PRN PRN Reason: Nausea and Vomiting Last Admin: 10/11/24 13:02 Dose: 4 mg Documented By: AMY Oxycodone HCl (Oxycodone Hcl Immed Release 5 Mg Tablet) 5 mg PO Q6H PRN PRN Reason: Pain, Moderate(Pain Scale 4-6) Potassium Chloride (Potassium Chloride Packet 20 Meq Packet) 40 meq PO ONCE ONE Stop: 10/12/24 07:38 Sodium Chloride (0.9 % Sodium Chloride Flush 3 Ml Syringe) 3 ml IVFLUSH QSHIFT [facility] Last Admin: 10/12/24 00:03 Dose: Not Given Documented By: LOU Non-Admin Reason: IV Running Labs 10/12/24 05:06 10/12/24 05:06 Labs: Laboratory Results - last 24 hr 10/10/24 10/11/24 10/12/24 15:30 07:59 05:06 MCV 89.7 MCH 30.7 MCHC 34.3 RDW 13.8 Plt Count 192 MPV 11.3 Immature Gran % (Auto) Cancelled Neut % (Auto) Cancelled Lymph % (Auto) Cancelled Long % (Auto) Cancelled Eos % (Auto) Cancelled Baso % (Auto) Cancelled Lymph # (Auto) Cancelled Long # (Auto) Cancelled Eos # (Auto) Cancelled Baso # (Auto) Cancelled Abs Immat Gran (auto) Cancelled Absolute Neuts (auto) Cancelled Absolute Nucleated RBC 0.000 Nucleated RBC % (auto) 0.0 Neutrophils % (Manual) 76 H Band Neutrophils % 10 H Lymphocytes % (Manual) 9 L Monocytes % (Manual) 1 L Metamyelocytes % 3 Myelocytes % 1 Abs Neuts (Manual) 12.3 H Lymphocytes # (Manual) 1.3 Monocytes # (Manual) 0.1 Metamyelocytes # 0.4 Myelocytes # 0.1 Smudge Cells PRESENT Toxic Granulation PRESENT Toxic Vacuolation PRESENT Dohle Bodies PRESENT Platelet Estimate NORMAL Plt Morphology Comment NORMAL RBC Morphology NOTED Ovalocytes 1+ (5-14) Satya Cells 1+ (0-2) Anion Gap 14 Estim Creat Clear Calc 57.4 Estimated GFR > 60 Random Glucose 114 Lactic Acid F/U @ 4Hr 2.1 H* Calcium 9.3 Stl C. cayetanensis PCR Not Detected Stool Rotavirus A PCR Not Detected Stl Adenov F 40/41 PCR Not Detected Stool Astrovirus (PCR) Not Detected Stool Campylobacter PCR Not Detected Stool Cryptosporidium PCR Not Detected Stl Sh Tox Pr E STEC PCR Not Detected Stool E coli O157 PCR Not applicable Stl Enterotoxigenic E PCR Not Detected Stool EPEC (PCR) Not Detected Stool EAEC (PCR) Not Detected Stl E. histolytica PCR Not Detected Stool Giardia Lamblia PCR Not Detected Stl P. shigelloides PCR Not Detected Stool Salmonella PCR Not Detected Stool Sapovirus (PCR) Not Detected Stl Shigella/EIEC PCR Not Detected St Y.enterocolitica PCR Not Detected Stool Vibrio (PCR) Not Detected Stl Vibrio cholerae PCR Not Detected Stl Norovirus GI/GII PCR Not Detected Microbiology Microbiology Results: Microbiology 10/10/24 22:21 Blood Culture - Preliminary Blood - Venous No growth after 24 hours. 10/10/24 22:21 Blood Culture - Preliminary Blood - Venous No growth after 24 hours. Assessment and Plan (1) Colitis: Status: Acute Plan Patient is an 84-year-old female with a past medical history significant for s/p left nephrectomy (benign lesion), HTN, history TIA, and history appy, who presented to the ED due to sudden onset of nausea, vomiting, diarrhea and left lower quadrant pain followed by syncopal episode. Acute sigmoid colitis Abd/pelvic CT concerning for colitis with possible underlying mass. Continue ceftriaxone and Flagyl, day 2 Previously has rectal tube placed due to persistent large volume diarrhea in ED C diff negative, GI panel negative GI consult with possible colonoscopy on Saturday10/13/2024 Clear liquid diet now, NPO after midnight Follow CBC and BMP Lactic acidosis Lactic acid 2.1 with repeat 3.7 Initially thought to be due to hypoxic episode, no indication of sepsis Pt received IVF and started on broad-spectrum antibiotics in the ED Pt placed on maintenance fluids and treated with IV antibiotics as above Hypokalemia Patient's potassium slightly low at 3.2 Will supplement with potassium 40 mEq p.o. Follow up potassium Syncope -- likely vasovagal BP mostly hypertensive during admission Check orthostatics and echocardiogram if lightheadedness persist Urinary retention Initial bladder scan 698ml requiring straight cath Previous UA negative for UTI but showing proteinuria and glucose Patient's urine output continues to be scant and tea-colored Will recheck UA, CPK, bladder scan as necessary Repeat CMP Metabolic acidosis Secondary to vomiting and diarrhea Given 2 L NS in ED, placed on maintenance fluids Right adrenal gland nodule 2.2 cm nodule of the right adrenal gland seen on abdominopelvic CT, 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 Quality Stroke Does the patient have a stroke diagnosis?: No VTE Prior VTE?: No VTE Risk Level:: Medical - moderate - high VTE Device Contraindication: N/A - Device Ordered VTE Drug Contraindication: Treatment Not Indicated
[2024-10-12 08:14] LABS: Cancel Lactic Acid Canceled
[2024-10-12] MEDS: lisinopriL 5 MG TABLET PO (08:16)
[2024-10-12] MEDS: Lactated Ringers 1,000 ML 100 ML IVCONT ×2 (08:17→18:19)
[2024-10-12] MEDS: amLODIPine Besylate 5 MG TABLET PO (08:17)
[2024-10-12] MEDS: Aspirin Enteric Coated 81 MG TABLET.DR PO (08:17)
[2024-10-12] MEDS: Potassium Chloride ER 20 MEQ TAB.ER.PRT PO ×2 (09:51→21:46)
--- NOTE | 2024-10-12 11:12 | MHC.CM.PN ---
EMR REVIEWED AND PER MD ROUNDS, PT IS NOT MEDICALLY CLEARED FOR DC (ADVANCING DIET SLOWLY, P.T. EVAL PENDING) CM WILL CONTINUE TO FOLLOW FOR DC PLAN.
[2024-10-12] MEDS: PEG 3350/Na Sulf,Bicarb,Cl/KCL 4,000 ML SOLN.RECON 4000 ML PO (18:18)
--- NOTE | 2024-10-12 21:55 | PC.NURSE ---
Elevated BP 183/79, no pain. Dr Mccullough aware, no new orders.
[2024-10-13] VITALS (8 sets, daily range): BP systolic 140–183; BP diastolic 62–97; PULSE 72–101; RESP 14–20; TEMP 36.1–37.4; O2SAT 87–96
[2024-10-13] MEDS: cefTRIAXone sodium 1 GM VIAL IVPUSH ×2 (00:18→22:50)
--- NOTE | 2024-10-13 05:03 | PC.NURSE ---
NPO after midnight for colonoscopy today. Patient was able to tolerate very little ( 3 cups) of bowel prep Gavilyte. Was on clear liquids prior, no BM so far. LR automatically dc'd, no need to reorder per Dr. Mccullough.
[2024-10-13] MEDS: metroNIDAZOLE/NS 500 MG/100 ML PIGGYBACK 100 MG IV ×3 (05:27→22:39)
[2024-10-13 06:24] LABS: Hematocrit 41.4 % (37.0-47.0); Hemoglobin 14.2 g/dl (12.0-16.0); Mean Corpuscular HGB Conc 34.3 g/dl (31.0-35.0); Mean Corpuscular Volume 90.4 fL (80.0-98.0); Mean Platelet Volume 11.3 fL (9.4-12.3); Platelet Count 216 X10*3/uL (160-400); Red Blood Count 4.58 X10*6/uL (4.20-5.50); Red Cell Distribution Width 13.7 % (11.0-16.0)
[2024-10-13 06:26] LABS: WBC ABN SCTR FOR CBC 1; White Blood Count 13.1 X10*3/uL (4.8-10.8)
[2024-10-13 06:36] LABS: Alanine Aminotransferase 7 U/L (0-31); Albumin Level 2.8 g/dL (3.5-5.0); Alkaline Phosphatase 142 U/L (39-117); Anion Gap 14 (12-20); Aspartate Amino Transferase 20 U/L (5-31); Bilirubin Total 0.4 mg/dL (0.0-1.0); Blood Urea Nitrogen 20 mg/dL (9-16); Carbon Dioxide 22 mmol/L (22-29); Chloride 107 mmol/L (96-108); Creatinine Clr Calc Pharmacy 64.5; Estimated Glomerular Filt Rate > 60; Glucose Random 118 mg/dL (60-115); Potassium 3.5 mmol/L (3.3-5.1); Sodium 139 mmol/L (135-145); Total Protein 5.1 g/dL (6.5-8.0)
--- NOTE | 2024-10-13 07:00 | CA_ITS ---
Transthoracic Echocardiogram Patient (Last, First, Middle): Jojo Ball, Gender: Female Date of : 1940 Age: 84 Procedure Date: 10/13/2024 Procedure Type: Transthoracic Echocardiogram Location: S3E Height: 162.56 cm Weight: 62.14 kg BSA: 1.67 m2 Heart Rate: 85 bpm BP: 170 / 72 mmHg Adjustment Supervisor: FARNAZ Quach MD: Marleni Butler PA-C Fire Alarm Repairer: Lenny Paulino MD Symptoms: syncope Study Quality: Adequate ECG Rhythm: Sinus Conclusions: - 1. Hyperdynamic LVEF greater than 70% with impaired relaxation filling pattern 2. Calcific aortic and mitral valve changes noted with normal cardiac valvular Dopplers 3. Normal RV systolic pressure 4. Mildly dilated ascending aorta 5. No gross pericardial effusion Findings Left Ventricle Normal left ventricular cavity size. There is normal left ventricular wall thickness. The left ventricular systolic function is hyperdynamic. The visually estimated ejection fraction is >70%. Spectral Doppler is indicative of an impaired relaxation filling pattern. E/E prime ratio is between 8 and 15 consistent with indeterminate filling pressures. Right Ventricle Normal right ventricular cavity size and systolic function. Atria The left atrium is normal in size. There is lipomatous hypertrophy of the interatrial septum. There is no evidence of interatrial shunt. The right atrium is normal in size. Aortic Valve There is mild calcification of the aortic valve. There is mild thickening of the aortic valve. There is no aortic valve stenosis. There is no aortic valve regurgitation. Mitral Valve There is mild anterior and posterior mitral leaflet thickening. There is mild mitral annular calcification. There is trace mitral valve regurgitation. There is no mitral valve stenosis. Pulmonic Valve The pulmonic valve was not well visualized. Tricuspid Valve Likely normal tricuspid valve structure and function. There is trace tricuspid valve regurgitation. The right ventricular systolic pressure is normal. The right ventricular systolic pressure is 21 mmHg. Normal right atrial pressure. There is no evidence of pulmonary hypertension. Great Vessels The pulmonary artery was not well visualized. There is mild dilatation of the ascending aorta measuring 4.00 cm. Small plaque is seen in the sino tubular ridge. Venous The inferior vena cava is normal in size and collapses greater than 50% with inspiration. Pericardium/Pleural There is no evidence of pericardial effusion. Prior Study Comparison No prior study available for comparison. Measurements 2D Linear Measurements IVSd: 0.96 0.6-0.9/0.6-1.0 cm LVIDd: 3.47 3.9-5.3/4.2-5.9 cm LVIDd Index: 2.08 2.4-3.2/2.2-3.1 cm/m2 LVIDs: 1.96 2.0-3.6 cm LVPWd: 1.05 0.7-1.1 cm LA Diam: 3.10 2.7-3.8/3.0-4.0 cm LAIDs Index: 1.86 1.5-2.3 cm/m2 LV Mass: 127.42 67-162/88-224 g LV Mass Index: 76.30 43-95/49-115 g/m2 LVOT Diam: 2.00 3.0+(-)1.3 cm 2D Systolic Function EF 4C: 73.10 >55% EF 2C: 76.30 >55% EF BiP: 74.20 >55% Mitral Valve MV VTI: 0.31 MV Pk Juma: 1.42 MV Mn Juma: 0.85 MV Pk Grad: 8.00 MV Mn Grad: 3.00 MV Pk E: 0.93 MV PK A: 1.39 MV Decel Time: 292.00 E/A: 0.70 E'Lateral: 8.70 E'Medial: 7.40 E/E' Med: 12.50 E/E' Lat: 10.70 PHT: 85.00 MVA PHT: 2.59 MVA Continuity: 2.70 Decel [place]: 3.18 Aortic Valve AoV Pk Juma: 1.80 AoV Mn Juma: 1.24 AoV VTI: 0.36 AoV Pk Grad: 13.00 Aov Mn Grad: 7.00 ALANA Cont.VTI: 2.34 LVOT LVOT Pk Juma: 1.33 LVOT Mn Juma: 0.87 LVOT VTI: 0.27 LVOT Pk Grad: 7.00 LVOT Mn Grad: 4.00 LVOT Diam: 2.00 LVOT Area: 3.14 Diastolic Function MV Pk E: 0.93 MV Pk A: 1.39 E/A: 0.70 E'Medial: 7.40 E/E' Med: 12.50 E' Laterial: 8.70 E/E' Lat: 10.70 Right Ventricle TAPSE (mm): 22.00 TVS' Juma: 19.00 Tricuspid Valve TR Pk Juma: 2.12 TR Pk Grad: 18.00 RA Press: 3.00 RVSP: 21.00 Great Vessels Aorta Sinus of Valsalva: 3.50 2.0-3.5 cm Ao Asc: 4.00 2.1-3.4 cm Ao Arch: 2.50 Pulmonary Valve PV Pk Juma: 0.88 Peak PV Grad: 3.00 Updated in Other Vendor System with Status of Final Lenny Paulino MD electronically signed on 10/13/2024 10:10:09 AM with status of Final
[2024-10-13 07:27] LABS: Band Neutrophils Percent 4 % (3-5); Lymphocytes Absolute Manual 0.3 X10*3/uL (1.2-4.9); Lymphocytes Percent Manual 2 % (20-40); Metamyelocytes Absolute 0.4 X10*3/uL; Metamyelocytes Percent 3 %; Monocytes Absolute Manual 0.9 X10*3/uL (0.1-1.2); Monocytes Percent Manual 7 % (2-11); Myelocytes Absolute 0.1 X10*/uL; Myelocytes Percent 1 %; Neutrophils Absolute Manual 11.4 X10*3/uL (2.0-8.3); Neutrophils Percent Manual 83 % (45-73)
[2024-10-13 07:28] LABS: Platelet Estimate NORMAL (NORMAL); Platelet Morphology Comment NORMAL; RBC Morphology NORMAL
[2024-10-13] MEDS: lisinopriL 5 MG TABLET PO (08:22)
[2024-10-13] MEDS: amLODIPine Besylate 5 MG TABLET PO (08:22)
[2024-10-13] MEDS: Potassium Chloride ER 20 MEQ TAB.ER.PRT PO (08:22)
[2024-10-13] MEDS: Aspirin Enteric Coated 81 MG TABLET.DR PO (08:22)
[2024-10-13] MEDS: 0.9 % Sodium Chloride Flush 3 ML SYRINGE IVFLUSH ×3 (08:24→22:40)
[2024-10-13] MEDS: Sodium Phosphate,Mono-Dibasic 133 ML ENEMA PR ×2 (09:45→10:15)
--- NOTE | 2024-10-13 11:18 | PM.GIPN ---
Subjective Subjective Date of Service: 10/13/24 Interval History: feeling better mild left sided abdominal pain stools beter no blood Critical Care Time (minutes): 0 Physical Exam Vital Signs: Vital Signs: Last Vital Signs Temp 97.3 F 10/13/24 07:24 Pulse 77 10/13/24 07:24 Resp 16 10/13/24 07:24 BP 140/70 H 10/13/24 07:24 Pulse Ox 93 10/13/24 07:24 O2 Del Method Room Air 10/13/24 07:24 BMI result Body Mass Index 23.6 EXAM: GENERAL: The patient is well developed and nontoxic. VITAL SIGNS:see workflow HEENT: Nonicteric sclerae, PERRLA, EOMI. Oropharynx clear. Moist mucous membranes. Conjunctivae appear well perfused. No thyroid mass. CHEST: Chest wall is nontender. HEART: Regular rate and rhythm without murmurs. LUNGS: Clear to auscultation bilaterally. ABDOMEN: Soft, positive bowel sounds, nontender, no organomegaly.no flank tenderness SKIN: No rash, no excessive bruising, petechiae, or purpura. NEUROLOGIC: Cranial nerves II-XII intact without motor/sensory deficit. Psych: normal affect Objective Data Labs 10/13/24 05:47 10/13/24 05:48 Labs: Laboratory Results - last 24 hr 10/12/24 10/13/24 10/13/24 05:06 05:47 05:48 WBC 13.1 H RBC 4.58 Hgb 14.2 Hct 41.4 MCV 90.4 MCH 31.0 MCHC 34.3 RDW 13.7 Plt Count 216 MPV 11.3 Immature Gran % (Auto) Cancelled Neut % (Auto) Cancelled Lymph % (Auto) Cancelled [place] % (Auto) Cancelled Eos % (Auto) Cancelled Baso % (Auto) Cancelled Lymph # (Auto) Cancelled [place] # (Auto) Cancelled Eos # (Auto) Cancelled Baso # (Auto) Cancelled Abs Immat Gran (auto) Cancelled Absolute Neuts (auto) Cancelled Absolute Nucleated RBC 0.000 Nucleated RBC % (auto) 0.0 Neutrophils % (Manual) 83 H Band Neutrophils % 4 Lymphocytes % (Manual) 2 L Monocytes % (Manual) 7 Metamyelocytes % 3 Myelocytes % 1 Abs Neuts (Manual) 11.4 H Lymphocytes # (Manual) 0.3 L Monocytes # (Manual) 0.9 Metamyelocytes # 0.4 Myelocytes # 0.1 Platelet Estimate NORMAL Plt Morphology Comment NORMAL RBC Morphology NORMAL Sodium 139 Potassium 3.5 Chloride 107 Carbon Dioxide 22 Anion Gap 14 BUN 20 H Creatinine 0.56 Estim Creat Clear Calc 64.5 Estimated GFR > 60 Random Glucose 118 H Calcium 9.0 Total Bilirubin 0.4 AST 20 ALT 7 Alkaline Phosphatase 142 H Total Creatine Kinase 62 Total Protein 5.1 L Albumin 2.8 L Microbiology Microbiology Results: Microbiology 10/10/24 22:21 Blood - Venous Blood Culture - Preliminary No growth after 48 hours. 10/10/24 22:21 Blood - Venous Blood Culture - Preliminary No growth after 48 hours. 10/11/24 Unknown Urine clean catch - Clean Catch Midstream Urine Culture - Final No growth. Procedures Date of Service Date of Service: 10/13/24 Progress Note: A&P Assessment and plan (1) Abdominal pain: Status: Acute Assessment and Plan: 1/ abn imaging with rectal thickening r/o neoplasia, colitis PLAN: 1/ colonoscopy today for further assessment Time Spent With Patient Time: Total time managing care of this patient today ____ minutes. Quality Stroke Does the patient have a stroke diagnosis?: No VTE Prior VTE?: No VTE Risk Level:: Medical - moderate - high VTE Device Contraindication: N/A - Device Ordered VTE Drug Contraindication: Treatment Not Indicated
--- NOTE | 2024-10-13 11:19 | MHC.SHP ---
Pre-Procedural Eval Section A - 24 Hr Update-Section A only Date of Service: 10/13/24 The patient is an INPATIENT: Yes The patient has been examined within 24 hours of the surgical procedure. The History & Physical has been completed within 30 days and I have reviewed it.: Yes Section B - Complete if H&P > 30 days Chief Complaint: diarrhea, abd pain, N, V Allergies: Allergies Allergy/AdvReac Type Severity Reaction Status Date / Time Gadolinium-Containing Allergy Unknown DIFFICULTY Verified 10/10/24 14:49 Contrast Medi BREATHING [GADOLINIUM-CONTAINING CONTRAST] Plan Diagnosis/Plan: Unchanged I have reviewed the history and physical and performed a pertinent physical examination on my patient. No changes have occurred unless specified. Time Spent With Patient Time: Total time managing care of this patient today ____ minutes.
[2024-10-13 11:22] LABS: C Reactive Protein 17.81 mg/dL (< or = 0.50)
--- NOTE | 2024-10-13 11:26 | P.CONAN_ITS ---
HPI - Anesthesia Eval Consult details Narrative: for colonoscopy PMF Active Problems Active Problems: All Active Problems Urinary retention (Acute) Adrenal gland neoplasm (Acute) Metabolic acidosis (Acute) Lactic acidosis (Acute) Syncope (Acute) Colitis (Acute) History of appendectomy (Acute) Hx TIA/stroke w/o resid (Acute) HTN (hypertension) (Acute) History of left nephrectomy (Acute) Abdominal pain (Acute) Nausea & vomiting (Acute) Diarrhea (Acute) Vasovagal syncopes (Acute) Past Medical History Medical History Hx TIA/stroke w/o resid HTN (hypertension) Family History Family history of problems with anesthesia: No Surgical History Surgical History History of appendectomy History of left nephrectomy History of Problems with Anesthesia: No Social History Social History Household Members: None Housing: Apartment Do you presently have visiting nurse or other home services: No Patient Tobacco Use Status: Never used Tobacco Smoked in Last 30 Days: No Use of substances other than those prescribed or required for medical reasons: No Currently Displaying Signs/Symptoms of Drug Intoxication Withdrawal: No Have you been hit, kicked, punched, or otherwise hurt by someone within the past year? If so, by whom?: No Do you feel safe in your current relationship?: Yes Is there a partner from a previous relationship who is making you feel unsafe now?: No Are you made to feel afraid or neglected: No Advance Directives: No Advance Directives Information Provided: No Do you have a plan to hurt others: No Plan Recently lost weight without trying: No Eating poorly because of decreased appetite: No Nutrition Risks: No Nutritional Risk Patient : No : No Poor oral hygiene: No service: No Meds Allergies Allergy/AdvReac Type Severity Reaction Status Date / Time Gadolinium-Containing Allergy Unknown DIFFICULTY Verified 10/10/24 14:49 Contrast Medi BREATHING [GADOLINIUM-CONTAINING CONTRAST] Active Medications: Current Medications Acetaminophen (Acetaminophen 325 Mg Tablet) 975 mg PO Q6H PRN PRN Reason: Pain, Mild 1-3,fever,headache Amlodipine Besylate (Amlodipine Besylate 5 Mg Tablet) 5 mg PO DAILY KARSTEN; Protocol Last Admin: 10/13/24 08:22 Dose: 5 mg Aspirin (Aspirin Enteric Coated 81 Mg Tablet.Dr) 81 mg PO DAILY [facility] Last Admin: 10/13/24 08:22 Dose: 81 mg Calcium Carbonate (Calcium Carbonate 750 Mg Tab.Chew) 750 mg PO Q4H PRN PRN Reason: Heartburn Ceftriaxone Sodium (Ceftriaxone Sodium 1 Gm Vial) 1 gm IVPUSH Q24H [facility] Last Admin: 10/13/24 00:18 Dose: 1 gm Hydromorphone HCl (Hydromorphone Hcl 1 Mg/Ml Syringe) 0.25 mg IVPUSH Q4H PRN; Protocol PRN Reason: Pain, Severe (Pain Scale 7-10) Metronidazole (Flagyl) 500 mg in 100 mls @ 100 mls/hr IV Q8H [facility] Last Infusion: 10/13/24 06:48 Dose: Infused Lisinopril (Lisinopril 5 Mg Tablet) 5 mg PO DAILY [facility]; Protocol Last Admin: 10/13/24 08:22 Dose: 5 mg Magnesium Hydroxide (Milk Of Magnesia 30 Ml Oral.Susp) 30 ml PO DAILY PRN PRN Reason: Constipation Melatonin (Melatonin 3 Mg Tablet) 6 mg PO BEDTIME PRN PRN Reason: Insomnia Ondansetron HCl (Ondansetron Hcl 4 Mg/2 Ml Vial) 4 mg IVPUSH Q8H PRN PRN Reason: Nausea and Vomiting Last Admin: 10/11/24 13:02 Dose: 4 mg Oxycodone HCl (Oxycodone Hcl Immed Release 5 Mg Tablet) 5 mg PO Q6H PRN PRN Reason: Pain, Moderate(Pain Scale 4-6) Sodium Biphosphate/Sodium Phosphate (Sodium Phosphate,Nye-Dibasic 133 Ml Enema) 133 ml ND ONCE PRN PRN Reason: Consult order Last Admin: 10/13/24 09:45 Dose: 133 ml Sodium Biphosphate/Sodium Phosphate (Sodium Phosphate,Nye-Dibasic 133 Ml Enema) 133 ml ND ONCE PRN PRN Reason: Consult order Last Admin: 10/13/24 10:15 Dose: 133 ml Sodium Chloride (0.9 % Sodium Chloride Flush 3 Ml Syringe) [address] [facility] Last Admin: 10/13/24 08:24 Dose: 3 ml Home Medications ?Medication ?Instructions ?Recorded ?Confirmed ?Last Taken ?Type acetaminophen 500 mg tablet 1,000 mg PO Q6H PRN hip pain 10/11/24 10/11/24 Unknown History amlodipine 5 mg tablet 5 mg PO DAILY 10/11/24 10/11/24 10/10/24 History aspirin 81 mg tablet,delayed 81 mg PO DAILY 10/11/24 10/11/24 10/10/24 History release lisinopril 5 mg tablet 5 mg PO DAILY 10/11/24 10/11/24 10/10/24 History Exam Height,Weight and Vital Signs: Height 5 ft 4 in Weight 62.3 kg Last Vital Signs Temp 99.4 F 10/13/24 11:15 Pulse 91 10/13/24 11:15 Resp 14 10/13/24 11:15 BP 166/76 H 10/13/24 11:15 Pulse Ox 92 10/13/24 11:20 O2 Del Method Nasal Cannula 10/13/24 11:20 O2 Flow Rate 2 10/13/24 11:20 Pertinent Lab Results Pertinent Lab Results: Laboratory Tests 10/10/24 10/10/24 10/10/24 14:57 15:30 17:27 WBC 9.7 RBC 5.14 Hgb 15.8 Hct 48.0 H MCV 93.4 MCH 30.7 MCHC 32.9 RDW 13.3 Plt Count 263 MPV 11.0 Immature Gran % (Auto) 0.4 Neut % (Auto) 56.5 Lymph % (Auto) 34.7 Nye % (Auto) 6.7 Eos % (Auto) 1.0 Baso % (Auto) 0.7 Lymph # (Auto) 3.4 Nye # (Auto) 0.7 Eos # (Auto) 0.1 Baso # (Auto) 0.1 Abs Immat Gran (auto) 0.04 H Absolute Neuts (auto) 5.5 Absolute Nucleated RBC 0.000 Nucleated RBC % (auto) 0.0 Neutrophils % (Manual) Band Neutrophils % Lymphocytes % (Manual) Monocytes % (Manual) Metamyelocytes % Myelocytes % Abs Neuts (Manual) Lymphocytes # (Manual) Monocytes # (Manual) Metamyelocytes # Myelocytes # Smudge Cells Toxic Granulation Toxic Vacuolation Dohle Bodies Platelet Estimate Plt Morphology Comment RBC Morphology Ovalocytes Satya Cells Sodium 141 Potassium 4.2 Chloride 106 Carbon Dioxide 18 L Anion Gap 21 H BUN 35 H Creatinine 1.15 Estim Creat Clear Calc 31.4 Estimated GFR 45 Random Glucose 151 H Lactic Acid Lactic Acid F/U @ 2Hr Lactic Acid F/U @ 4Hr Calcium 10.9 H Magnesium 2.5 Total Bilirubin 0.5 Direct Bilirubin 0.2 AST 27 ALT 19 Alkaline Phosphatase 305 H Total Creatine Kinase Troponin I High Sens 2.9 C-Reactive Protein Total Protein 7.2 Albumin 4.1 Lipase 47 Urine Color Urine Appearance Urine pH Ur Specific [place] Urine Protein Urine Glucose (UA) Urine Ketones Urine Blood Urine Nitrite Ur Leukocyte Esterase Urine RBC Urine WBC Ur Squamous Epith Cells Urine Bacteria Hyaline Casts Stl C. cayetanensis PCR Not Detected Stool Rotavirus A PCR Not Detected Stl Adenov F 40/41 PCR Not Detected Stool Astrovirus (PCR) Not Detected Stool Campylobacter PCR Not Detected Stool Cryptosporidium PCR Not Detected Stl Sh Tox Pr E STEC PCR Not Detected Stool E coli O157 PCR Not applicable Stl Enterotoxigenic E PCR Not Detected Stool EPEC (PCR) Not Detected Stool EAEC (PCR) Not Detected Stl E. histolytica PCR Not Detected Stool Giardia Lamblia PCR Not Detected Stl P. shigelloides PCR Not Detected Stool Salmonella PCR Not Detected Stool Sapovirus (PCR) Not Detected Stl Shigella/EIEC PCR Not Detected St Y.enterocolitica PCR Not Detected Stool Vibrio (PCR) Not Detected Stl Vibrio cholerae PCR Not Detected Stl Norovirus GI/GII PCR Not Detected C. difficile Tox B Gene NEGATIVE Influenza Type A (PCR) NEGATIVE Influenza Type B (PCR) NEGATIVE RSV RNA Qual (PCR) NEGATIVE SARS-CoV-2 RNA (RT-PCR) NEGATIVE 10/10/24 10/10/24 10/11/24 19:39 22:20 00:40 WBC RBC Hgb Hct MCV MCH MCHC RDW Plt Count MPV Immature Gran % (Auto) Neut % (Auto) Lymph % (Auto) Nye % (Auto) Eos % (Auto) Baso % (Auto) Lymph # (Auto) Nye # (Auto) Eos # (Auto) Baso # (Auto) Abs Immat Gran (auto) Absolute Neuts (auto) Absolute Nucleated RBC Nucleated RBC % (auto) Neutrophils % (Manual) Band Neutrophils % Lymphocytes % (Manual) Monocytes % (Manual) Metamyelocytes % Myelocytes % Abs Neuts (Manual) Lymphocytes # (Manual) Monocytes # (Manual) Metamyelocytes # Myelocytes # Smudge Cells Toxic Granulation Toxic Vacuolation Dohle Bodies Platelet Estimate Plt Morphology Comment RBC Morphology Ovalocytes Peridot Cells Sodium Potassium Chloride Carbon Dioxide Anion Gap BUN Creatinine Estim Creat Clear Calc Estimated GFR Random Glucose Lactic Acid 2.1 H* Lactic Acid F/U @ 2Hr 3.7 H* Lactic Acid F/U @ 4Hr Calcium Magnesium Total Bilirubin Direct Bilirubin AST ALT Alkaline Phosphatase Total Creatine Kinase Troponin I High Sens < 2.7 C-Reactive Protein Total Protein Albumin Lipase Urine Color Urine Appearance Urine pH Ur Specific [place] Urine Protein Urine Glucose (UA) Urine Ketones Urine Blood Urine Nitrite Ur Leukocyte Esterase Urine RBC Urine WBC Ur Squamous Epith Cells Urine Bacteria Hyaline Casts Stl C. cayetanensis PCR Stool Rotavirus A PCR Stl Adenov F PCR Stool Astrovirus (PCR) Stool Campylobacter PCR Stool Cryptosporidium PCR Stl Sh Tox Pr E STEC PCR Stool E coli O157 PCR Stl Enterotoxigenic E PCR Stool EPEC (PCR) Stool EAEC (PCR) Stl E. histolytica PCR Stool Giardia Lamblia PCR Stl P. shigelloides PCR Stool Salmonella PCR Stool Sapovirus (PCR) Stl Shigella/EIEC PCR St Y.enterocolitica PCR Stool Vibrio (PCR) Stl Vibrio cholerae PCR Stl Norovirus GI/GII PCR C. difficile Tox B Gene Influenza Type A (PCR) Influenza Type B (PCR) RSV RNA Qual (PCR) SARS-CoV-2 RNA (RT-PCR) 10/11/24 10/11/24 10/11/24 02:49 05:42 05:50 WBC RBC Hgb Hct MCV MCH MCHC RDW Plt Count MPV Immature Gran % (Auto) Neut % (Auto) Lymph % (Auto) Nye % (Auto) Eos % (Auto) Baso % (Auto) Lymph # (Auto) Nye # (Auto) Eos # (Auto) Baso # (Auto) Abs Immat Gran (auto) Absolute Neuts (auto) Absolute Nucleated RBC Nucleated RBC % (auto) Neutrophils % (Manual) Band Neutrophils % Lymphocytes % (Manual) Monocytes % (Manual) Metamyelocytes % Myelocytes % Abs Neuts (Manual) Lymphocytes # (Manual) Monocytes # (Manual) Metamyelocytes # Myelocytes # Smudge Cells Toxic Granulation Toxic Vacuolation Dohle Bodies Platelet Estimate Plt Morphology Comment RBC Morphology Ovalocytes Peridot Cells Sodium Potassium Chloride Carbon Dioxide Anion Gap BUN Creatinine Estim Creat Clear Calc Estimated GFR Random Glucose Lactic Acid 3.7 H* Lactic Acid F/U @ 2Hr 2.9 H* Lactic Acid F/U @ 4Hr Calcium Magnesium Total Bilirubin Direct Bilirubin AST ALT Alkaline Phosphatase Total Creatine Kinase Troponin I High Sens C-Reactive Protein Total Protein Albumin Lipase Urine Color Dark Yellow Urine Appearance Clear Urine pH 5.0 Ur Specific [place] 1.015 Urine Protein 30 (1+) H Urine Glucose (UA) 250 H Urine Ketones Trace Urine Blood Negative Urine Nitrite Negative Ur Leukocyte Esterase Small (1+) H Urine RBC 0-2 Urine WBC 0-5 Ur Squamous Epith Cells 0-2 Urine Bacteria None Seen Hyaline Casts 0-2 Stl C. cayetanensis PCR Stool Rotavirus A PCR Stl Adenov F PCR Stool Astrovirus (PCR) Stool Campylobacter PCR Stool Cryptosporidium PCR Stl Sh Tox Pr E STEC PCR Stool E coli O157 PCR Stl Enterotoxigenic E PCR Stool EPEC (PCR) Stool EAEC (PCR) Stl E. histolytica PCR Stool Giardia Lamblia PCR Stl P. shigelloides PCR Stool Salmonella PCR Stool Sapovirus (PCR) Stl Shigella/EIEC PCR St Y.enterocolitica PCR Stool Vibrio (PCR) Stl Vibrio cholerae PCR Stl Norovirus GI/GII PCR C. difficile Tox B Gene Influenza Type A (PCR) Influenza Type B (PCR) RSV RNA Qual (PCR) SARS-CoV-2 RNA (RT-PCR) 10/11/24 10/11/24 10/12/24 06:00 07:59 05:06 WBC 17.4 H 14.3 H RBC 4.80 4.46 Hgb 14.6 13.7 Hct 44.6 40.0 MCV 92.9 89.7 MCH 30.4 30.7 MCHC 32.7 34.3 RDW 13.7 13.8 Plt Count 230 192 MPV 11.1 11.3 Immature Gran % (Auto) 0.5 H Cancelled Neut % (Auto) 87.2 H Cancelled Lymph % (Auto) 3.7 L Cancelled Nye % (Auto) 8.3 Cancelled Eos % (Auto) 0.0 Cancelled Baso % (Auto) 0.3 Cancelled Lymph # (Auto) 0.6 L Cancelled Nye # (Auto) 1.5 H Cancelled Eos # (Auto) 0.0 Cancelled Baso # (Auto) 0.1 Cancelled Abs Immat Gran (auto) 0.08 H Cancelled Absolute Neuts (auto) 15.2 H Cancelled Absolute Nucleated RBC 0.000 0.000 Nucleated RBC % (auto) 0.0 0.0 Neutrophils % (Manual) 76 H Band Neutrophils % 10 H Lymphocytes % (Manual) 9 L Monocytes % (Manual) 1 L Metamyelocytes % 3 Myelocytes % 1 Abs Neuts (Manual) 12.3 H Lymphocytes # (Manual) 1.3 Monocytes # (Manual) 0.1 Metamyelocytes # 0.4 Myelocytes # 0.1 Smudge Cells PRESENT Toxic Granulation PRESENT Toxic Vacuolation PRESENT Dohle Bodies PRESENT Platelet Estimate NORMAL Plt Morphology Comment NORMAL RBC Morphology NOTED Ovalocytes 1+ (5-14) Peridot Cells 1+ (0-2) Sodium 140 139 Potassium 4.0 3.2 L Chloride 109 H 108 Carbon Dioxide 20 L 20 L Anion Gap 15 14 BUN 31 H 20 H Creatinine 0.85 0.63 Estim Creat Clear Calc 42.5 57.4 Estimated GFR > 60 > 60 Random Glucose 199 H 114 Lactic Acid Lactic Acid F/U @ 2Hr Lactic Acid F/U @ 4Hr 2.1 H* Calcium 9.3 D 9.3 Magnesium Total Bilirubin Direct Bilirubin AST ALT Alkaline Phosphatase Total Creatine Kinase 62 Troponin I High Sens C-Reactive Protein Total Protein Albumin Lipase Urine Color Urine Appearance Urine pH Ur Specific [place] Urine Protein Urine Glucose (UA) Urine Ketones Urine Blood Urine Nitrite Ur Leukocyte Esterase Urine RBC Urine WBC Ur Squamous Epith Cells Urine Bacteria Hyaline Casts Stl C. cayetanensis PCR Stool Rotavirus A PCR Stl Adenov F 40 PCR Stool Astrovirus (PCR) Stool Campylobacter PCR Stool Cryptosporidium PCR Stl Sh Tox Pr E STEC PCR Stool E coli O157 PCR Stl Enterotoxigenic E PCR Stool EPEC (PCR) Stool EAEC (PCR) Stl E. histolytica PCR Stool Giardia Lamblia PCR Stl P. shigelloides PCR Stool Salmonella PCR Stool Sapovirus (PCR) Stl Shigella/EIEC PCR St Y.enterocolitica PCR Stool Vibrio (PCR) Stl Vibrio cholerae PCR Stl Norovirus GI/GII PCR C. difficile Tox B Gene Influenza Type A (PCR) Influenza Type B (PCR) RSV RNA Qual (PCR) SARS-CoV-2 RNA (RT-PCR) 10/13/24 10/13/24 05:47 05:48 WBC 13.1 H RBC 4.58 Hgb 14.2 Hct 41.4 MCV 90.4 MCH 31.0 MCHC 34.3 RDW 13.7 Plt Count 216 MPV 11.3 Immature Gran % (Auto) Cancelled Neut % (Auto) Cancelled Lymph % (Auto) Cancelled Nye % (Auto) Cancelled Eos % (Auto) Cancelled Baso % (Auto) Cancelled Lymph # (Auto) Cancelled Nye # (Auto) Cancelled Eos # (Auto) Cancelled Baso # (Auto) Cancelled Abs Immat Gran (auto) Cancelled Absolute Neuts (auto) Cancelled Absolute Nucleated RBC 0.000 Nucleated RBC % (auto) 0.0 Neutrophils % (Manual) 83 H Band Neutrophils % 4 Lymphocytes % (Manual) 2 L Monocytes % (Manual) 7 Metamyelocytes % 3 Myelocytes % 1 Abs Neuts (Manual) 11.4 H Lymphocytes # (Manual) 0.3 L Monocytes # (Manual) 0.9 Metamyelocytes # 0.4 Myelocytes # 0.1 Smudge Cells Toxic Granulation Toxic Vacuolation Dohle Bodies Platelet Estimate NORMAL Plt Morphology Comment NORMAL RBC Morphology NORMAL Ovalocytes Satya Cells Sodium 139 Potassium 3.5 Chloride 107 Carbon Dioxide 22 Anion Gap 14 BUN 20 H Creatinine 0.56 Estim Creat Clear Calc 64.5 Estimated GFR > 60 Random Glucose 118 H Lactic Acid Lactic Acid F/U @ 2Hr Lactic Acid F/U @ 4Hr Calcium 9.0 Magnesium Total Bilirubin 0.4 Direct Bilirubin AST 20 ALT 7 Alkaline Phosphatase 142 H Total Creatine Kinase Troponin I High Sens C-Reactive Protein 17.81 H Total Protein 5.1 L Albumin 2.8 L Lipase Urine Color Urine Appearance Urine pH Ur Specific [place] Urine Protein Urine Glucose (UA) Urine Ketones Urine Blood Urine Nitrite Ur Leukocyte Esterase Urine RBC Urine WBC Ur Squamous Epith Cells Urine Bacteria Hyaline Casts Stl C. cayetanensis PCR Stool Rotavirus A PCR Stl Adenov F 40/41 PCR Stool Astrovirus (PCR) Stool Campylobacter PCR Stool Cryptosporidium PCR Stl Sh Tox Pr E STEC PCR Stool E coli O157 PCR Stl Enterotoxigenic E PCR Stool EPEC (PCR) Stool EAEC (PCR) Stl E. histolytica PCR Stool Giardia Lamblia PCR Stl P. shigelloides PCR Stool Salmonella PCR Stool Sapovirus (PCR) Stl Shigella/EIEC PCR St Y.enterocolitica PCR Stool Vibrio (PCR) Stl Vibrio cholerae PCR Stl Norovirus GI/GII PCR C. difficile Tox B Gene Influenza Type A (PCR) Influenza Type B (PCR) RSV RNA Qual (PCR) SARS-CoV-2 RNA (RT-PCR) Airway Mallampati Class: II TM Dist: <=3cm Neck ROM: Full Heart: ok Lungs: ok Assessment and Plan Assessment Anesthesia Assessment: Anesthesia Plan Discussed and Chart Reviewed Final Anesthetic Review Family History of Problems with Anesthesia: No History of Problems with Anesthesia: No NPO: Yes ASA Class: III Final Preanesthetic Review: No Changes in Pt Med Stat, Meds/Allgs Chart Reviewed, Consent Obtained/Reviewed and Anes Risks/Benef Reviewed Patient Risk: Intermediate Procedure Risk: Low Anesthetic Plan Anesthetic Plan: MAC: and Agree w/ Assess. and Plan Disposition: Standard PACU
--- NOTE | 2024-10-13 12:14 | HO.OPN-COLON ---
Colonoscopy Operative Note Operative Note Date of Service: 10/13/24 Narrative: Operative Information Procedure Description: Colonoscopy Indication: abn imaging Anesthesia: MAC COLONOSCOPY Instrument: Olympus variable stiffness pediatric scope 190L Colonoscopy Monitoring: Vital signs and clinical assessment, continuous EKG monitoring, Pulse oximetry, Carbon Dioxide monitoring and blood pressure monitoring were done throughout the procedure. Colon withdrawal time was 20 minutes. Procedure: The patient was placed in the left lateral decubitis position and pre-procedure medications were administered. After a digital rectal examination of the ano-rectum, the video colonoscope was inserted into the rectum and advanced through the colon to the cecum/TI. The colonoscope was slowly withdrawn in a retrograde panoramic fashion and the colon mucosa was carefully examined including a retroflexed view of the rectum. Findings and interventions are described below. Procedure Difficulty: moderate Findings: Terminal Ileum-not reached Cecum:not reached Ascending Colon: normal - bx taken Transverse Colon -normal- bx taken Descending Colon: severe edema with sloughed mucosa and inflammation, ulceration Sigmoid Colon: severe edema with sloughed mucosa and inflammation, ulceration, bx taken Rectum: Retroflexion with small internal hemorrhoids seen, grade I, large lateral spreading polypoid lesion about 20 mm in diameter. bx taken and then injected with eleview and removed with cold snare polypectomy in piece meal fashion. Anorectum - normal Intervention: eleview, and cold snare polypectomy, cold forceps bx Colon preparation: [place] Bowel Preparation Scale Right colon; 1 Transverse colon: 1 Left colon; 1 (0 = Unprepared colon segment with mucosa not seen due to solid stool that cannot be cleared. 1 = Portion of mucosa of the colon segment seen, but other areas of the colon segment not well seen due to staining, residual stool and/or opaque liquid. 2 = Minor amount of residual staining, small fragments of stool and/or opaque liquid, but mucosa of colon segment seen well. 3 = Entire mucosa of colon segment seen well with no residual staining, small fragments of stool or opaque liquid) Impression and Post Procedure Diagnosis: suspected ischemic colitis colon polyp internal hemorrhoids Plan: Await path High fiber diet leaflet Avoid straining at stool, epsom salts and sitz bath, anusol supps or cream Repeat Colonoscopy in 4 weeks or so to review polyp resection site, hopefully better prep next time Above findings were reviewed with the patient and relevant handouts were provided if indicated.
--- NOTE | 2024-10-13 12:26 | HO.PM.IMPN ---
Subjective Subjective Date of Service: 10/13/24 Interval History: diarrhea + abd pain resolved no dizziness Review of Systems Review of Systems: Yes all other systems are reviewed and are negative Physical Exam Vital Signs: Vital Signs: Last Vital Signs Temp 99.4 F 10/13/24 11:15 Pulse 91 10/13/24 11:15 Resp 14 10/13/24 11:15 BP 166/76 H 10/13/24 11:15 Pulse Ox 92 10/13/24 11:20 O2 Del Method Nasal Cannula 10/13/24 11:20 O2 Flow Rate 2 10/13/24 11:20 BMI result Body Mass Index 23.6 Gen: in no acute distress HEENT: sclera anicteric, moist mucus membranes Neck: supple Lungs: clear to auscultation bilaterally Heart: regular rate and rhythm, no murmurs Abd: soft, non-tender, non-distended Ext: no edema Skin: warm/well-perfused Neuro: alert and oriented x3, no focal findings Psych: appropriate affect Objective Data Active Medications Acetaminophen (Acetaminophen 325 Mg Tablet) 975 mg PO Q6H PRN PRN Reason: Pain, Mild 1-3,fever,headache Amlodipine Besylate (Amlodipine Besylate 5 Mg Tablet) 5 mg PO DAILY [facility]; Protocol Last Admin: 10/13/24 08:22 Dose: 5 mg Documented By: ELMA Aspirin (Aspirin Enteric Coated 81 Mg Tablet.) 81 mg PO DAILY [facility] Last Admin: 10/13/24 08:22 Dose: 81 mg Documented By: ELMA Calcium Carbonate (Calcium Carbonate 750 Mg Tab.Chew) 750 mg PO Q4H PRN PRN Reason: Heartburn Ceftriaxone Sodium (Ceftriaxone Sodium 1 Gm Vial) 1 gm IVPUSH Q24H [facility] Last Admin: 10/13/24 00:18 Dose: 1 gm Documented By: LOU Hydromorphone HCl (Hydromorphone Hcl 1 Mg/Ml Syringe) 0.25 mg IVPUSH Q4H PRN; Protocol PRN Reason: Pain, Severe (Pain Scale 7-10) Metronidazole (Flagyl) 500 mg in 100 mls @ 100 mls/hr IV Q8H [facility] Last Infusion: 10/13/24 06:48 Dose: Infused Documented By: LOU Lisinopril (Lisinopril 5 Mg Tablet) 5 mg PO DAILY [facility]; Protocol Last Admin: 10/13/24 08:22 Dose: 5 mg Documented By: ELMA Magnesium Hydroxide (Milk Of Magnesia 30 Ml Oral.Susp) 30 ml PO DAILY PRN PRN Reason: Constipation Melatonin (Melatonin 3 Mg Tablet) 6 mg PO BEDTIME PRN PRN Reason: Insomnia Naloxone HCl (Naloxone Hcl 0.4 Mg/Ml Vial) 0.04 mg IVPUSH Q5M PRN PRN Reason: Excessive sedation or RR < 8 Ondansetron HCl (Ondansetron Hcl 4 Mg/2 Ml Vial) 4 mg IVPUSH Q8H PRN PRN Reason: Nausea and Vomiting Last Admin: 10/11/24 13:02 Dose: 4 mg Documented By: AMY Oxycodone HCl (Oxycodone Hcl Immed Release 5 Mg Tablet) 5 mg PO Q6H PRN PRN Reason: Pain, Moderate(Pain Scale 4-6) Sodium Biphosphate/Sodium Phosphate (Sodium Phosphate,[place]-Dibasic 133 Ml Enema) 133 ml SD ONCE PRN PRN Reason: Consult order Last Admin: 10/13/24 09:45 Dose: 133 ml Documented By: ELMA Sodium Biphosphate/Sodium Phosphate (Sodium Phosphate,[place]-Dibasic 133 Ml Enema) 133 ml SD ONCE PRN PRN Reason: Consult order Last Admin: 10/13/24 10:15 Dose: 133 ml Documented By: ELMA Sodium Chloride (0.9 % Sodium Chloride Flush 3 Ml Syringe) 3 ml [facility] Last Admin: 10/13/24 08:24 Dose: 3 ml Documented By: ELMA Labs 10/13/24 05:47 10/13/24 05:48 Labs: Laboratory Results - last 24 hr 10/12/24 10/13/24 10/13/24 05:06 05:47 05:48 MCV 90.4 MCH 31.0 MCHC 34.3 RDW 13.7 Plt Count 216 MPV 11.3 Immature Gran % (Auto) Cancelled Neut % (Auto) Cancelled Lymph % (Auto) Cancelled [place] % (Auto) Cancelled Eos % (Auto) Cancelled Baso % (Auto) Cancelled Lymph # (Auto) Cancelled [place] # (Auto) Cancelled Eos # (Auto) Cancelled Baso # (Auto) Cancelled Abs Immat Gran (auto) Cancelled Absolute Neuts (auto) Cancelled Absolute Nucleated RBC 0.000 Nucleated RBC % (auto) 0.0 Neutrophils % (Manual) 83 H Band Neutrophils % 4 Lymphocytes % (Manual) 2 L Monocytes % (Manual) 7 Metamyelocytes % 3 Myelocytes % 1 Abs Neuts (Manual) 11.4 H Lymphocytes # (Manual) 0.3 L Monocytes # (Manual) 0.9 Metamyelocytes # 0.4 Myelocytes # 0.1 Platelet Estimate NORMAL Plt Morphology Comment NORMAL RBC Morphology NORMAL Anion Gap 14 Estim Creat Clear Calc 64.5 Estimated GFR > 60 Random Glucose 118 H Calcium 9.0 Total Bilirubin 0.4 AST 20 ALT 7 Alkaline Phosphatase 142 H Total Creatine Kinase 62 C-Reactive Protein 17.81 H Total Protein 5.1 L Albumin 2.8 L Microbiology Microbiology Results: Microbiology 10/10/24 22:21 Blood Culture - Preliminary Blood - Venous No growth after 48 hours. 10/10/24 22:21 Blood Culture - Preliminary Blood - Venous No growth after 48 hours. Assessment and Plan (1) Colitis: Status: Acute Plan d4 for 84yo F with HTN, hx TIA, hx nephrectomy for benign lesion; presented with nausesa, vomiting, diarrhea, abd pain, and syncope, admitted for sigmoid colitis acute sigmoid colitis - CT A/P 10/10 with circumferential wall thickening of the sigmoid colon and rectum with surrounding fat stranding concerning for colitis; area of eccentric wall thickening of the rectum - ceftriaxone + metronidazole 10/11- - Cdiff + GI PCR panels negative - rectal tube discontinued - GI consulted, plan C-scope today syncope - likely vasovagal - TTE 10/13: 1. Hyperdynamic LVEF greater than 70% with impaired relaxation filling pattern 2. Calcific aortic and mitral valve changes noted with normal cardiac valvular Dopplers 3. Normal RV systolic pressure 4. Mildly dilated ascending aorta 5. No gross pericardial effusion lactic acidosis metabolic acidosis - due to colitis, not sepsis; resolved hypoK - repleted urinary retention - resolved R adrenal gland nodule, 2.2 cm - likely adenoma, outpt f/u HTN - continue lisionpril + amlodipine hx TIA - ASA VTE ppx - enoxaparin dispo - PT consulted: STR recommended In my clinical judgment, the patient requires continued inpatient hospitalization for the following reasons: colonoscopy Total time managing care of this patient today: 35 minutes. Quality Stroke Does the patient have a stroke diagnosis?: No VTE Prior VTE?: No VTE Risk Level:: Medical - moderate - high VTE Device Contraindication: N/A - Device Ordered VTE Drug Contraindication: Treatment Not Indicated
--- NOTE | 2024-10-13 13:35 | MHC.CM.PN ---
Addendum entered by Allison Jimenez RN 10/13/24 14:43: CM MET W/PT TO DISCUSS DISPO, REFERRAL PLACED AND [facility] OFFERING BED TOMORROW 10/14, PT ACCEPTING BED AND MM REQUESTING CM PREBOOK PT FOR TOMORROW AM. Original Note: CM ATTEMPTED TO MEET W/PT TO DISCUSS DISPO P.T. IS RECOMMENDING STR, PT OFF UNIT FOR COLONOSCOPY, CM TO REVISIT.
[2024-10-13] MEDS: Acetaminophen 325 MG TABLET 975 MG PO (20:05)
[2024-10-14 03:18] VITALS: BP 159/69; PULSE 88; RESP 16; TEMP 36.7; O2SAT 93
[2024-10-14] MEDS: metroNIDAZOLE/NS 500 MG/100 ML PIGGYBACK 100 MG IV (05:26)
[2024-10-14 06:57] VITALS: BP 160/68; PULSE 80; RESP 16; TEMP 36.6; O2SAT 91
[2024-10-14] MEDS: Aspirin Enteric Coated 81 MG TABLET.DR PO (08:02)
[2024-10-14] MEDS: lisinopriL 5 MG TABLET PO (08:03)
[2024-10-14] MEDS: Acetaminophen 325 MG TABLET 975 MG PO ×2 (08:03→14:11)
[2024-10-14] MEDS: amLODIPine Besylate 5 MG TABLET PO (08:03)
[2024-10-14] MEDS: 0.9 % Sodium Chloride Flush 3 ML SYRINGE IVFLUSH (08:04)
--- NOTE | 2024-10-14 09:18 | HO.POSTANES ---
Post Anesthesia Evaluation Post Anesthesia Evaluation Date of Service: 10/14/24 Vital Signs: Vital Signs Temp Pulse Resp BP Pulse Ox O2 Del Method 10/14/24 06:57 98 F 80 16 160/68 H 91 L Room Air 10/14/24 03:18 98.0 F 88 16 159/69 H 93 Room Air Anesthesia: Monitored Mental Status: Awake Pain Control: Satisfactory Nausea/Vomiting: None Hydration: Adequate Anesthesia-Related Issues: No Anes. Related Issues
--- NOTE | 2024-10-14 11:21 | MHC.CM.PN ---
IMM 10/14/24 DELIVERED TO BEDSIDE, PT TO BE MEDICALLY CLEARED FOR STR AT [facility] PENDING [facility] FOR BLS TRANSPORT AT 2PM CM DID CONTACT PT'S DTR/HCP AGUILA WHO REQUESTED CM ADD HER EMAIL ACCNT TO PT'S FILE, [email or web address].
--- NOTE | 2024-10-14 11:26 | PM.DS ---
DS: Providers Provider Date of Service: 10/14/24 Date of admission: 10/10/24 22:20 Date of discharge: 10/14/24 Primary care physician: Nonstaff Physician Consults: 10/10/24 23:17 Consult to Gastroenterology Routine Consulting Provider: Silke Woodard Reason for consultation: colitis, severe diarrhea Has provider been notified: No DS: Diagnosis Discharge Diagnosis (1) Colitis: Status: Acute (2) Rectal polyp: Status: Acute (3) Adrenal gland neoplasm: Status: Acute DS: Summary Hospital Course Hospital Course: From the history and physical by the admitting hospitalist, KASEY Melendez, 10/11/24: Patient is an 84-year-old female with a past medical history significant for s/p left nephrectomy (benign lesion), HTN, history TIA, and history appy, who presented to the ED due to sudden onset of nausea, vomiting, diarrhea and left lower quadrant pain. The patient reports that she had breakfast and went out to lunch and 8 which more than her usual and when she returned home she had the sudden onset of her symptoms. She had 2 episodes of large volume diarrhea. Her daughter was present when she was standing up from the toilet and had a syncopal episode. The daughter was able to catch her and lower her to the ground slowly therefore no head strike. She was unconscious for 5-10 minutes prior to EMS arriving. She was 92% on room air, responsive to 4 L and now not requiring oxygen. On arrival she we will pale and diaphoretic. The patient reports that she has chronic alternating constipation and diarrhea. She has had an episode of colitis med years ago. She denies any chest pain, shortness breath, fever, chills currently. In the ED she continued to have large volumes of diarrhea and a rectal tube was placed. 84yo F with HTN, hx TIA, hx nephrectomy for benign lesion; presented with nausesa, vomiting, diarrhea, abd pain, and syncope, admitted for sigmoid colitis. Hospital course by problem: acute sigmoid colitis - CT A/P 10/10 with circumferential wall thickening of the sigmoid colon and rectum with surrounding fat stranding concerning for colitis; area of eccentric wall thickening of the rectum - Cdiff + GI PCR panels negative - treated with ceftriaxone + metronidazole 10/10-10/14, discharged on 3 days of cefuroxime + metronidazole - rectal tube discontinued as diarrhea improved - GI consulted, Dr Woodard performed colonoscopy 10/13/24, which showed: Terminal Ileum-not reached Cecum:not reached Ascending Colon: normal - bx taken Transverse Colon -normal- bx taken Descending Colon: severe edema with sloughed mucosa and inflammation, ulceration Sigmoid Colon: severe edema with sloughed mucosa and inflammation, ulceration, bx taken Rectum: Retroflexion with small internal hemorrhoids seen, grade I, large lateral spreading polypoid lesion about 20 mm in diameter. bx taken and then injected with eleview and removed with cold snare polypectomy in piece meal fashion. Anorectum - normal - overall impression was of healing colitis, possibly ischemic; with rectal polyp - she will follow up with [facility] in 2 weeks for biopsy results - ASA should be held until 10/16/24 syncope - likely vasovagal; did not recur - TTE 10/13: 1. Hyperdynamic LVEF greater than 70% with impaired relaxation filling pattern 2. Calcific aortic and mitral valve changes noted with normal cardiac valvular Dopplers 3. Normal RV systolic pressure 4. Mildly dilated ascending aorta 5. No gross pericardial effusion lactic acidosis metabolic acidosis - due to colitis, not sepsis; resolved hypoK - repleted urinary retention - resolved as diarrhea resolved R adrenal gland nodule, 2.2 cm - likely adenoma, outpt f/u She was discharged to [facility] for short-term rehabilitation. Time Attestation Discharge Coordination Time (in mins): 40 Quality: Safe Use of Opioids Does Pt have an Active Cancer Diagnosis on the Problem List?: No Quality: Stroke Does the patient have a stroke diagnosis?: No Physical Exam Vital Signs: Vital Signs: Last Vital Signs Temp 98 F 10/14/24 06:57 Pulse 80 10/14/24 06:57 Resp 16 10/14/24 06:57 BP 160/68 H 10/14/24 06:57 Pulse Ox 91 L 10/14/24 06:57 O2 Del Method Room Air 10/14/24 06:57 O2 Flow Rate 2 10/13/24 11:20 BMI result Body Mass Index 23.6 Gen: in no acute distress HEENT: sclera anicteric, moist mucus membranes Neck: supple Lungs: clear to auscultation bilaterally Heart: regular rate and rhythm, no murmurs Abd: soft, non-tender, non-distended Ext: no edema Skin: warm/well-perfused Neuro: alert and oriented x3, no focal findings Psych: appropriate affect DS: Data Data Completed and Pending Completed studies during hospitalization [Text1]: Laboratory Results WBC 13.1 X10*3/uL (4.8-10.8) H 10/13/24 05:47 RBC 4.58 X10*6/uL (4.20-5.50) 10/13/24 05:47 Hgb 14.2 g/dl (12.0-16.0) 10/13/24 05:47 Hct 41.4 % (37.0-47.0) 10/13/24 05:47 MCV 90.4 fL (80.0-98.0) 10/13/24 05:47 MCH 31.0 pg (27.0-33.0) 10/13/24 05:47 MCHC 34.3 g/dl (31.0-35.0) 10/13/24 05:47 RDW 13.7 % (11.0-16.0) 10/13/24 05:47 Plt Count 216 X10*3/uL (160-400) 10/13/24 05:47 MPV 11.3 fL (9.4-12.3) 10/13/24 05:47 Immature Gran % (Auto) Cancelled 10/13/24 05:47 Neut % (Auto) Cancelled 10/13/24 05:47 Lymph % (Auto) Cancelled 10/13/24 05:47 [place] % (Auto) Cancelled 10/13/24 05:47 Eos % (Auto) Cancelled 10/13/24 05:47 Baso % (Auto) Cancelled 10/13/24 05:47 Lymph # (Auto) Cancelled 10/13/24 05:47 [place] # (Auto) Cancelled 10/13/24 05:47 Eos # (Auto) Cancelled 10/13/24 05:47 Baso # (Auto) Cancelled 10/13/24 05:47 Abs Immat Gran (auto) Cancelled 10/13/24 05:47 Absolute Neuts (auto) Cancelled 10/13/24 05:47 Absolute Nucleated RBC 0.000 X10*3/uL (0.0-0.012) 10/13/24 05:47 Nucleated RBC % (auto) 0.0 /100WBC (0.0-0.2) 10/13/24 05:47 Neutrophils % (Manual) 83 % (45-73) H 10/13/24 05:47 Band Neutrophils % 4 % (3-5) 10/13/24 05:47 Lymphocytes % (Manual) 2 % (20-40) L 10/13/24 05:47 Monocytes % (Manual) 7 % (2-11) 10/13/24 05:47 Metamyelocytes % 3 % 10/13/24 05:47 Myelocytes % 1 % 10/13/24 05:47 Abs Neuts (Manual) 11.4 X10*3/uL (2.0-8.3) H 10/13/24 05:47 Lymphocytes # (Manual) 0.3 X10*3/uL (1.2-4.9) L 10/13/24 05:47 Monocytes # (Manual) 0.9 X10*3/uL (0.1-1.2) 10/13/24 05:47 Metamyelocytes # 0.4 X10*3/uL 10/13/24 05:47 Myelocytes # 0.1 X10*/uL 10/13/24 05:47 Smudge Cells PRESENT 10/12/24 05:06 Toxic Granulation PRESENT 10/12/24 05:06 Toxic Vacuolation PRESENT 10/12/24 05:06 Dohle Bodies PRESENT 10/12/24 05:06 Platelet Estimate NORMAL (NORMAL) 10/13/24 05:47 Plt Morphology Comment NORMAL 10/13/24 05:47 RBC Morphology NORMAL 10/13/24 05:47 Ovalocytes 1+ (5-14) /OIF 10/12/24 05:06 [place] Cells 1+ (0-2) /OIF 10/12/24 05:06 Sodium 139 mmol/L (135-145) 10/13/24 05:48 Potassium 3.5 mmol/L (3.3-5.1) 10/13/24 05:48 Chloride 107 mmol/L (96-108) 10/13/24 05:48 Carbon Dioxide 22 mmol/L (22-29) 10/13/24 05:48 Anion Gap 14 (12-20) 10/13/24 05:48 BUN 20 mg/dL (9-16) H 10/13/24 05:48 Creatinine 0.56 mg/dL (0.5-1.4) 10/13/24 05:48 Estim Creat Clear Calc 64.5 10/13/24 05:48 Estimated GFR > 60 10/13/24 05:48 Random Glucose 118 mg/dL (60-115) H 10/13/24 05:48 Lactic Acid 3.7 mmol/L (0.5-2.0) H* 10/11/24 02:49 Lactic Acid F/U @ 2Hr 2.9 mmol/L (0.5-2.0) H* 10/11/24 05:50 Lactic Acid F/U @ 4Hr 2.1 mmol/L (0.5-2.0) H* 10/11/24 07:59 Calcium 9.0 mg/dL (8.4-10.2) 10/13/24 05:48 Magnesium 2.5 mg/dL (1.6-2.6) 10/10/24 14:57 Total Bilirubin 0.4 mg/dL (0.0-1.0) 10/13/24 05:48 Direct Bilirubin 0.2 mg/dL (0.0-0.5) 10/10/24 14:57 AST 20 U/L (5-31) 10/13/24 05:48 ALT 7 U/L (0-31) 10/13/24 05:48 Alkaline Phosphatase 142 U/L (39-117) H 10/13/24 05:48 Total Creatine Kinase 62 U/L (26-140) 10/12/24 05:06 Troponin I High Sens < 2.7 ng/L (<3.5-17.0) 10/10/24 19:39 C-Reactive Protein 17.81 mg/dL (< or = 0.50) H 10/13/24 05:48 Total Protein 5.1 g/dL (6.5-8.0) L 10/13/24 05:48 Albumin 2.8 g/dL (3.5-5.0) L 10/13/24 05:48 Lipase 47 U/L (8-78) 10/10/24 14:57 Urine Color Dark Yellow 10/11/24 05:42 Urine Appearance Clear 10/11/24 05:42 Urine pH 5.0 (5.0-9.0) 10/11/24 05:42 Ur Specific [place] 1.015 (1.005-1.025) 10/11/24 05:42 Urine Protein 30 (1+) mg/dL (Neg-Trace) H 10/11/24 05:42 Urine Glucose (UA) 250 mg/dL (Negative) H 10/11/24 05:42 Urine Ketones Trace mg/dL (Negative) 10/11/24 05:42 Urine Blood Negative (Negative) 10/11/24 05:42 Urine Nitrite Negative (Negative) 10/11/24 05:42 Ur Leukocyte Esterase Small (1+) (Negative) H 10/11/24 05:42 Urine RBC 0-2 /HPF (0-2) 10/11/24 05:42 Urine WBC 0-5 /HPF (0-5) 10/11/24 05:42 Ur Squamous Epith Cells 0-2 /HPF (0-2) 10/11/24 05:42 Urine Bacteria None Seen (None Seen) 10/11/24 05:42 Hyaline Casts 0-2 /LPF (0-2) 10/11/24 05:42 Stl C. cayetanensis PCR Not Detected (Not Detect.) 10/10/24 15:30 Stool Rotavirus A PCR Not Detected (Not Detect.) 10/10/24 15:30 Stl Adenov F 40/41 PCR Not Detected (Not Detect.) 10/10/24 15:30 Stool Astrovirus (PCR) Not Detected (Not Detect.) 10/10/24 15: Stool Campylobacter PCR Not Detected (Not Detect.) 10/10/24 15:30 Stool Cryptosporidium PCR Not Detected (Not Detect.) 10/10/24 15:30 Stl Sh Tox Pr E STEC PCR Not Detected (Not Detect.) 10/10/24 15:30 Stool E coli O157 PCR Not applicable (Not Detect.) 10/10/24 15:30 Stl Enterotoxigenic E PCR Not Detected (Not Detect.) 10/10/24 15:30 Stool EPEC (PCR) Not Detected (Not Detect.) 10/10/24 15:30 Stool EAEC (PCR) Not Detected (Not Detect.) 10/10/24 15:30 Stl E. histolytica PCR Not Detected (Not Detect.) 10/10/24 15:30 Stool Giardia Lamblia PCR Not Detected (Not Detect.) 10/10/24 15:30 Stl P. shigelloides PCR Not Detected (Not Detect.) 10/10/24 15:30 Stool Salmonella PCR Not Detected (Not Detect.) 10/10/24 15:30 Stool Sapovirus (PCR) Not Detected (Not Detect.) 10/10/24 15:30 Stl Shigella/EIEC PCR Not Detected (Not Detect.) 10/10/24 15:30 St Y.enterocolitica PCR Not Detected (Not Detect.) 10/10/24 15:30 Stool Vibrio (PCR) Not Detected (Not Detect.) 10/10/24 15:30 Stl Vibrio cholerae PCR Not Detected (Not Detect.) 10/10/24 15:30 Stl Norovirus GI/GII PCR Not Detected (Not Detect.) 10/10/24 15:30 C. difficile Tox B Gene NEGATIVE (Negative) 10/10/24 15:30 Influenza Type A (PCR) NEGATIVE (Negative) 10/10/24 17:27 Influenza Type B (PCR) NEGATIVE (Negative) 10/10/24 17:27 RSV RNA Qual (PCR) NEGATIVE (Negative) 10/10/24 17:27 SARS-CoV-2 RNA (RT-PCR) NEGATIVE (Negative) 10/10/24 17:27 Pending studies at discharge: Pending at discharge 10/13/24 12:33 Surgical [PTH] Routine Discharge Plan Discharge Anticipated Discharge Date/Time: 10/14/24 14:00 Patient Disposition: Xfer [facility] Discharge Diagnosis: colitis rectal polyp adrenal adenoma Referrals: Karime Garcia [facility] [place] [Outside] - 1 Day (SHORT TERM REHAB) Reji Cobos III, MD [Physician] - 2 Weeks Silke Woodard MD [Physician] - 4 Weeks Discharge Medications: New cefuroxime axetil 500 mg tablet 500 mg PO BID Qty: 6 0RF metronidazole 500 mg tablet 500 mg PO TID Qty: 9 0RF Continued amlodipine 5 mg tablet 5 mg PO DAILY lisinopril 5 mg tablet 5 mg PO DAILY acetaminophen 500 mg Tablet 1,000 mg PO Q6H PRN (Reason: hip pain) Held aspirin 81 mg Tablet,Delayed Release (Dr/Ec) 81 mg PO DAILY Hold Instructions: Resume on 10/16/24. Discharge Orders: Discharge Order (Routine); Ordered 10/14/24 Ordered By: Ina Benson Diet: Advance to usual diet Activity on Discharge: As tolerated Stand Alone Forms: Patient Portal Discharge page Print Language: Romansh Care Plan Goals: recovery from GI illness Health Concerns: colitis rectal polyp adrenal adenoma Plan of Treatment: cefuroxime 500 mg twice daily PLUS metronidazole 500 mg three times daily for 3 days follow up with [facility] in 2 weeks for result of polyp biopsy Please follow up with your primary care doctor within 1 week of discharge from rehabilitation. Return to the hospital if you experience recurrent or worsening symptoms. Discuss further workup of adrenal adenoma with primary care doctor, if desired. Assessment: See Discharge Summary.
== END 2024-10-14 14:29 | disposition skilled nursing facility (03) | DRG 394 ==
LOC: HO.ED 22:10 → HO.EDOVER 22:46 → HO.S3 10-11 01:07
PROVIDERS: Internal Medicine Gastroenterology; Student in an Organized Health Care Education/Training Program; Admitting Provider Physician Assistant; Emergency Provider Emergency Medicine Emergency Medical Services; PCP Internal Medicine; Visit Provider Family Medicine
PROC: 0DJD8ZZ Inspection of Lower Intestinal Tract, Via Natural or Artificial Opening Endoscopic (ICD-10-PCS; CPT 45378; principal; 2024-10-13 13:30)
DX: K55.9 Vascular disorder of intestine, unspecified (principal); E87.20 Acidosis, unspecified; K63.3 Ulcer of intestine; D35.01 Benign neoplasm of right adrenal gland; I10 Essential (primary) hypertension; E87.6 Hypokalemia; R33.9 Retention of urine, unspecified; K62.1 Rectal polyp; K64.0 First degree hemorrhoids; K63.5 Polyp of colon; R55 Syncope and collapse; Z90.5 Acquired absence of kidney; Z86.73 Personal history of transient ischemic attack (TIA), and cerebral infarction without residual deficits; Z20.822 Contact with and (suspected) exposure to COVID-19; Z79.82 Long term (current) use of aspirin; Z79.899 Other long term (current) drug therapy
CPT/HCPCS: 0241U; 36415; 74176; 80048; 80053; 81001; 82248; 82550; 83605; 83690; 83735; 84484; 85007; 85025; 85027; 86140; 87040; 87086; 87493; 87507; 88305; 93005; 93306; 97162; 99285; J0360; J0696; J1200; J1836; J1956; J2003; J2270; J2405; J2704; J2765; J7120; Q9957

== ENCOUNTER → 2024-10-10 15:17 | Outpatient (BNV) | payer MEDICARE, SELFPAY | PROVIDERS: Admitting Provider Physician Assistant; Emergency Provider Emergency Medicine Emergency Medical Services; Visit Provider Internal Medicine | DX: I49.1 Atrial premature depolarization (principal) | CPT/HCPCS: 93010 ==

== ENCOUNTER → 2024-10-10 16:21 | Outpatient (BNV) | payer MEDICARE, SELFPAY | PROVIDERS: Emergency Provider Emergency Medicine Emergency Medical Services; Visit Provider Nuclear Medicine | DX: K63.89 Other specified diseases of intestine (principal) | CPT/HCPCS: 74176 ==

== ENCOUNTER 2024-10-10 22:20 | Outpatient (BNV) | payer MEDICARE, SELFPAY | END 2024-10-13 07:00 | PROVIDERS: Admitting Provider Physician Assistant; Emergency Provider Emergency Medicine Emergency Medical Services; Visit Provider Internal Medicine Cardiovascular Disease | DX: I35.0 Nonrheumatic aortic (valve) stenosis (principal); I34.81 Nonrheumatic mitral (valve) annulus calcification; I34.0 Nonrheumatic mitral (valve) insufficiency | CPT/HCPCS: 93306 ==

== ENCOUNTER → 2024-10-10 22:20 | Outpatient (BNV) | payer MEDICARE, SELFPAY | PROVIDERS: Admitting Provider Physician Assistant; Emergency Provider Emergency Medicine Emergency Medical Services; Visit Provider Internal Medicine Gastroenterology | DX: K52.9 Noninfective gastroenteritis and colitis, unspecified (principal) | CPT/HCPCS: 99223 ==

== ENCOUNTER → 2024-10-10 22:20 | Outpatient (BNV) | payer MEDICARE, SELFPAY | PROVIDERS: Admitting Provider Physician Assistant; Emergency Provider Emergency Medicine Emergency Medical Services; Visit Provider Hospitalist | DX: K52.9 Noninfective gastroenteritis and colitis, unspecified (principal) | CPT/HCPCS: 99223; 99232; 99499 ==

== ENCOUNTER 2025-03-16 13:50 | Emergency (ER) | payer MEDICARE, SELFPAY ==
--- NOTE | ~2025-03-16 | CT_ITS ---
CLINICAL HISTORY: fall, head strike CT cervical spine without contrast Comparison: None provided Findings: Mild osteopenia. No acute findings on limited view of the intracranial contents. No cervical fluid collections or masses. C1-2: Moderate anterior osteoarthrosis with moderate mineralized pannus formation surrounding the odontoid. C2-3: Grade 1 anterolisthesis C2 over C3. C3-4: Grade 1 anterolisthesis C3 over C4. Moderate to severe DJD. Severe right and moderate left spondylitic neural foraminal stenosis. C4-5: Grade 1 anterolisthesis C4 over C5. Moderate DJD. Moderate bilateral spondylitic neural foraminal stenosis. C5-6: Severe DJD. Moderate anterior spurring. Moderate to severe left and moderate right spondylitic neural foraminal stenosis. C6-7: Severe DJD. Moderate anterior spurring. Moderate to severe bilateral spondylitic neural foraminal stenosis. C7-T1: Severe DJD. Moderate left and mild right spondylitic neural foraminal stenosis. Moderate calcified atherosclerotic disease of the proximal internal carotid arteries. IMPRESSION: 1. Grade 1 anterolisthesis of C2 over C3, C3 over C4, and C4 over C5. 2. Severe degenerative joint disease at C5-6, C6-7, and C7-T1. 3. Moderate anterior osteoarthrosis at C1-2 with moderate mineralized pannus formation surrounding the odontoid. 4. Moderate calcified atherosclerotic disease of the proximal internal carotid arteries. Consider carotid ultrasound. 5. No acute osseous injury. This document has been electronically signed by: Reymundo Del Real MD on 03/16/2025 17:53:10
--- NOTE | ~2025-03-16 | CT_ITS ---
CLINICAL HISTORY: fall, head strike CT head without contrast Comparison: None provided Findings: No intra-axial mass, midline shift, hydrocephalus, or acute hemorrhage. Heterogeneous low attenuation in the periventricular white matter. Mild cerebral atrophy. Moderate to severe calcified atherosclerotic disease of the cavernous portion of the internal carotid arteries. There is no sinus or mastoid fluid. The orbits are within normal limits. No skull fracture. IMPRESSION: 1. Chronic periventricular microvascular ischemic disease. 2. Mild cerebral atrophy. 3. Moderate to severe cavernous internal carotid artery atherosclerosis. 4. No acute intracranial findings. This document has been electronically signed by: Reymundo Del Real MD on 03/16/2025 17:48:27
--- NOTE | ~2025-03-16 | XR_ITS ---
EXAMINATION: XR CHEST CLINICAL INFORMATION: fall, weakness COMPARISON: None available. TECHNIQUE: Frontal view of the chest was obtained. FINDINGS: No significant abnormality is noted involving the heart, lungs, mediastinum, or soft tissues. Mild to moderate degenerative changes are present in both shoulder joints. XR/XR chest 1V IMPRESSION: No acute disease. Electronically signed by: Keenan Rivero MD 03/16/2025 03:56 PM EDT RP
--- NOTE | ~2025-03-16 | CT_ITS ---
CLINICAL HISTORY: pain, injury CT lumbar spine without contrast Comparison: None provided Findings: Grade 1 retrolisthesis of the L2 over L3, L3 over L4. Moderate osteopenia. Diffuse idiopathic skeletal hyperostosis Severe DJD and vacuum disc phenomenon of the intervertebral disc spaces of the lumbar spine. L1-2: Left paracentral mildly hyper attenuated focus, 0.7 cm AP x 0.8 cm transverse by 1.1 cm craniocaudad; disc extrusion, with moderate to severe central canal stenosis and mild bilateral neural foraminal stenosis. L2-3: Broad-based spondylitic disc bulge with [id number] central canal stenosis and moderate to severe bilateral spondylitic neural foraminal. L3-4: Broad-based spondylitic disc bulge with mild central canal stenosis and moderate to severe bilateral spondylitic neural foraminal stenosis. L4-5 broad-based disc bulge with [id number] central canal stenosis moderate to severe left and moderate right spondylitic neural foraminal stenosis. L5-S1: Broad-based disc bulge with mild central canal stenosis [id number] right and moderate to severe left spondylitic neural foraminal stenosis. Lumbar levoscoliosis. Moderate calcified atherosclerotic disease of the abdominal aorta. Right adrenal heterogeneous low-attenuation lesion, 1.8 x 1.8 cm with a density of -2 Hounsfield units. Uterine fundus right of midline dystrophic calcification, 2 x 1.7 cm; calcified leiomyoma. Moderate osteoarthrosis of the left hip joint. IMPRESSION: 1. 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 2. Multilevel lumbar spondylosis with varying degrees of central canal and neural foraminal stenosis. 3. Grade 1 retrolisthesis of L2 over L3 and L3 over L4. 4. Right adrenal low-attenuation lesion, 1.8 cm; adrenal adenoma. 5. Calcified uterine leiomyoma, 2 cm; calcified leiomyoma. 6. No acute osseous injury. This document has been electronically signed by: Reymundo Del Real MD on 03/16/2025 17:48:03
--- NOTE | ~2025-03-16 | CT_ITS ---
CLINICAL HISTORY: pain, injury CT thoracic spine without contrast Comparison: None provided Findings: Normal vertebral body alignment. Moderate osteopenia. Diffuse idiopathic skeletal hyperostosis No significant degenerative change. Visualized lungs and mediastinum are unremarkable. Upper abdominal contents unremarkable. Proximal thoracic levoscoliosis and thoracolumbar dextroscoliosis. T8-9, T9-10, T10-11, T11-12: Moderate DJD. IMPRESSION: 1. Diffuse idiopathic skeletal hyperostosis 2. Moderate osteopenia 3. Proximal thoracic levoscoliosis and thoracolumbar dextroscoliosis 4. Moderate degenerative joint disease at T8-9, T9-10, T10-11, and T11-12 5. No acute osseous injury This document has been electronically signed by: Reymundo Del Real MD on 03/16/2025 18:12:43
[2025-03-16 14:27] VITALS: BP 150/58; BP 178/80; PULSE 70; PULSE 85; RESP 18; TEMP 37.1; O2SAT 95; O2SAT 96; BMI 28.8
--- NOTE | 2025-03-16 14:37 | ED_ITS ---
HPI - General Adult General Chief complaint: Fall Stated complaint: fall, back pain Time Seen by Provider: 03/16/25 14:37 Source: patient and EMS Mode of arrival: EMS Limitations: no limitations History of Present Illness ED Provider: Dara Lemus PA-C HPI narrative: This is an 85 year old woman with a history of 3 recent falls, stroke, HTN, and left nephrectomy that presents for evaluation of fall. She is here with her daughter and they reported history together. This patient lives on her own and she reports that she was frying eggs this morning when her walker tipped over. Her daughter met her at her house shortly after the fall. The patient is unable to describe what she hit when she fell. The patient states that she felt well initially but began to develop severe back pain. She states that she cannot walk due to the pain. She endorses that she has had difficulty with urinating and passing stool but states that it is due to pain. She denies numbness or tingling in the extremities or the pelvic or buttock area. She has chronic left sided weakness due to her history of stroke about 13 years ago. She also has a history of fracturing her left femur in three places due to a ski accident. Related Data Home Medications ?Medication ?Instructions ?Recorded ?Confirmed acetaminophen 500 mg tablet 1,000 mg PO Q6H PRN hip pa in 10/11/24 03/17/25 amlodipine 5 mg tablet 5 mg PO DAILY 10/11/2403/17 aspirin 81 mg tablet,delayed 81 mg PO DAILY 10/11/24 1 release Held on 10/14/24. Instructions: Resume on 10/16/24. lisinopril 5 mg tablet 5 mg PO DAILY 10/11/2403/17 escitalopram oxalate 5 mg tablet 5 mg PO DAILY 5 03/17/25 Allergies Allergy/AdvReac Type Severity Reaction Status Date / Time Gadolinium-Containing Allergy Unknown DIFFICULTY Verified 03/16/25 14:36 Contrast Medi BREATHING (GADOLINIUM-CONTAINING CONTRAST) Review of Systems 2 Constitutional: Constitutional: Reports as per HPI Eyes: Eyes: Reports as per HPI ENT: Reports as per HPI Cardiovascular: Cardiovascular: Reports as per HPI Respiratory: Respiratory: Reports as per HPI Gastrointestinal: Gastrointestinal: Reports as per HPI Genitourinary: Genitourinary: Reports as per HPI Musculoskeletal: Musculoskeletal: Reports as per HPI Integumentary/Breasts: Skin/Breast: Reports as per HPI Neurologic: Reports as per HPI Psychiatric: Psychiatric: Reports as per HPI Endocrine: Endocrine: Reports as per HPI Hematologic/Lymphatic: Hematologic/Lymphatic: Reports as per HPI Allergic/Immunologic: Allergic/Immunologic: Reports as per HPI [facility] Past Medical History Attestation statement: The following information was validated with the patient. (all information validated with the patient's daughter) Source: old records reviewed, obtained from family (patient's daughter provided additional history and confirmed the history provided by the patient. ) and nursing notes reviewed Medical History Hx TIA/stroke w/o resid HTN (hypertension) Surgical History History of appendectomy History of left nephrectomy Social History Social History Household Members: None Housing: Apartment Do you presently have visiting nurse or other home services: No Patient Tobacco Use Status: Never used Tobacco Smoked in Last 30 Days: No Use of substances other than those prescribed or required for medical reasons: No Advance Directives: No Advance Directives Information Provided: Yes Do you have a plan to hurt others: No Plan service: No Physical Exam ED Vital Signs: Vital Signs - 24 hr 03/17/25 10:54 03/17/25 14:33 03/17/25 16:00 Temperature 97.8 F 98.5 F Pulse Rate 86 72 65 Respiratory Rate 11 L 20 20 Blood Pressure 136/77 128/76 136/63 Pulse Oximetry 92 98 96 Oxygen Delivery Method Nasal Cannula Room Air Room Air Oxygen Flow Rate 2 03/17/25 20:00 03/18/25 05:24 03/18/25 08:41 Temperature 97.1 F 98.4 F Pulse Rate 69 66 Respiratory Rate 18 18 Blood Pressure 126/58 L 184/77 H 136/71 Pulse Oximetry 97 94 Oxygen Delivery Method Room Air Room Air Oxygen Flow Rate 03/18/25 08:41 03/18/25 08:44 Temperature 97.9 F Pulse Rate 69 Respiratory Rate 14 Blood Pressure 136/71 136/71 Pulse Oximetry 93 Oxygen Delivery Method Room Air Oxygen Flow Rate BMI result Body Mass Index 28.8 Const General: cooperative, no acute distress, alert and awake Nutritional Appearance: well nourished Orientation/consciousness: patient oriented x3 HENMT Head: Yes normal to inspection and Yes atraumatic Ears: hearing grossly normal bilaterally and external ears normal General nose exam: Normal external nose present, no nasal discharge noted and no epistaxis Face and sinus: Yes normal facial exam, No abrasion and No laceration Mouth: no drooling and no muffled voice Eyes General: appearance normal, both eyes and all related structures Periorbital: periorbital findings normal Eyelids: Yes eyelids normal Conjunctivae: conjunctivae normal Pupils: Equal, round and reactive pupils present EOM: EOMs intact bilaterally Neck Neck: Yes normal visual inspection and Yes full ROM Resp Effort & Inspection: normal respiratory effort and able to speak in complete sentences Skin Trauma: abrasion (Left lower extremity) Neuro General: patient oriented x3, moves all extremities and Normal light touch and pain sensation Cranial nerves: Yes Equal, round and reactive pupils present Cognition (Neuro): normal cognition Motor exam (neuro): 5/5 motor strength present throughout Extrem General: Yes normal to inspection and Yes full ROM Right lower extremity: normal to inspection and foot Details: normal to inspection Left lower extremity: normal to inspection and foot Details: normal to inspection Psych Other: Some forgetfulness observed. Appearance: grossly normal Mental Status: mental status grossly normal Affect: normal affect Attitude: cooperative Thought process: Normal thought process present Thought content: Normal thought content present Insight: Fair insight present (Psych) Judgement: Fair judgement present (Psych) Course Reevaluation(s) Reevaluation #1: Patient's CAT scan does not show any acute life-threatening etiology. Patient has case management and physical therapy to be done in the morning. 03/17/25 2:44am Reevaluation #2: Time: 08:57 Date: 03/17/25 Provider: Susanna Landry PA-C Patient in physician observation for case management needs. No acute events reported overnight. CT scans negative for acute processes. Patient curently awaiting PT evaluation for assessment. Will continue to monitor while patient in the department awaiting evaluation and discharge plan. Time: 08:57 Reevaluation #3: Patient to be discharged home with resumption of VNA with daughter tomorrow (03/18) at 11am Time: 17:16 Additional Reevaluation(s): Time: 10:04 Date: 03/18/25 Provider: Jacquelin Willoughby PA-C Physician observation ended at 11am. Patient has been cleared for discharge by the CARE team with resumption of VNA, she does not meet admission or STR criteria. She will go home with her daughter. Will follow up as an outpatient. Medications Administered Generic Name Dose Route Start Last Admin Trade Name Freaidee PRN Reason Stop Dose Admin Acetaminophen 650 mg 03/17/25 07:57 03/18/25 08:45 Acetaminophen 325 Mg Tablet PO 650 mg Q6H PRN Administration Pain, Moderate(Pain Scale 4-6) Amlodipine Besylate 5 mg 03/18/25 09:00 03/18/25 08:41 Amlodipine Besylate 5 Mg Tablet PO 5 mg DAILY KARSTEN Administration Protocol Aspirin 81 mg 03/18/25 09:00 03/18/25 08:41 Aspirin Enteric Coated 81 Mg Tablet.Dr PO 81 mg DAILY KARSTEN Administration Escitalopram Oxalate 5 mg 03/18/25 09:00 03/18/25 09:40 Escitalopram Oxalate 5 Mg Tablet PO 5 mg DAILY KARSTEN Administration Lisinopril 5 mg 03/18/25 09:00 03/18/25 08:41 Lisinopril 5 Mg Tablet PO 5 mg DAILY KARSTEN Administration Protocol Discontinued Medications Generic Name Dose Route Start Last Admin Trade Name Gabq PRN Reason Stop Dose Admin Cyclobenzaprine HCl 5 mg 03/16/25 16:26 03/16/25 16:42 Cyclobenzaprine Hcl 5 Mg Tablet PO 03/16/25 16:27 5 mg ONCE ONE Administration Oxycodone HCl 10 mg 03/16/25 16:26 03/16/25 16:51 Oxycodone Hcl Immed Release 5 Mg Tablet PO 03/16/25 16:27 Not Given ONCE ONE Oxycodone HCl 5 mg 03/16/25 21:48 03/16/25 21:54 Oxycodone Hcl Immed Release 5 Mg Tablet PO 03/16/25 21:49 5 mg ONCE ONE Administration Oxycodone HCl 5 mg 03/17/25 09:50 03/17/25 10:05 Oxycodone Hcl Immed Release 5 Mg Tablet PO 03/17/25 09:51 5 mg ONCE ONE Administration Medical Decision Making Medical Decision Making MDM Narrative: Patient is an 85 year old assigned female at with a history of stroke, HTN, and left nephrectomy presenting to the emergency department today with mid / low back pain s/p fall. Patient's physical exam was as noted in the physical exam portion of this note. Patient's blood work showed a WBC count of 12.5 which appears to be chronic for the patient. Patient's EKG was unremarkable. Patient's chest x-ray showed no acute process. Patient's CT head, c-spine, thoracic, and lumbar spine CTs are pending. I explained my physical exam findings as well as all test results to the patient and the patient's daughter. I answered all questions asked by the patient and the patient's daughter. Patient signed out to KASEY Diane pending CTs being read. Differential Diagnosis Differential Diagnoses: The differential diagnosis associated with the presentation includes Back pain Fall Thoracic fracture Admission/Observation Consideration of admission/observation: Escalation of care including admission/observation considered Patient's disposition will be determined after CTs are read. Lab Data [facility] Lab Attestation statement: I reviewed the patient's lab results. My interpretation of these results are in the MDM Rationale portion of this note. 03/16/25 15:25 03/16/25 15:25 Labs: Lab Results 03/16/25 03/17/25 Range/Units 15:25 10:09 WBC 12.5 H (4.8-10.8) X10*3/uL RBC 4.02 L (4.20-5.50) X10*6/uL Hgb 11.7 L (12.0-16.0) g/dl Hct 36.7 L (37.0-47.0) % MCV 91.3 (80.0-98.0) fL MCH 29.1 (27.0-33.0) pg MCHC 31.9 (31.0-35.0) g/dl RDW 13.9 (11.0-16.0) % Plt Count 245 (160-400) X10*3/uL MPV 10.6 (9.4-12.3) fL Immature Gran % (Auto) 0.5 H (0.0-0.4) % Neut % (Auto) 70.9 (45-73) % Lymph % (Auto) 19.9 L (20-40) % [place] % (Auto) 8.2 (2-11) % Eos % (Auto) 0.2 (0-4) % Baso % (Auto) 0.3 (0-2) % Lymph # (Auto) 2.5 (1.2-4.9) X10*3/uL [place] # (Auto) 1.0 (0.1-1.2) X10*3/uL Eos # (Auto) 0.0 (0.0-0.4) X10*3/uL Baso # (Auto) 0.0 (0.0-0.2) X10*3/uL Abs Immat Gran (auto) 0.06 H (0.00-0.03) X10*3/uL Absolute Neuts (auto) 8.8 H (2.0-8.3) x10*3/uL Absolute Nucleated RBC 0.000 (0.0-0.012) X10*3/uL Nucleated RBC % (auto) 0.0 (0.0-0.2) /100WBC Sodium 141 (135-145) mmol/L Potassium 4.0 (3.3-5.1) mmol/L Chloride 107 (96-108) mmol/L Carbon Dioxide 26 (22-29) mmol/L Anion Gap 12 (12-20) BUN 26 H (9-16) mg/dL Creatinine 0.76 (0.5-1.4) mg/dL Estim Creat Clear Calc 50.1 Estimated GFR > 60 Random Glucose 117 H (60-115) mg/dL Calcium 10.2 D (8.4-10.2) mg/dL Total Bilirubin 0.2 (0.0-1.0) mg/dL AST 21 (5-31) U/L ALT 16 (0-31) U/L Alkaline Phosphatase 102 (39-117) U/L Total Protein 6.3 L (6.5-8.0) g/dL Albumin 3.9 (3.5-5.0) g/dL Influenza Type A (PCR) NEGATIVE (Negative) Influenza Type B (PCR) NEGATIVE (Negative) RSV RNA Qual (PCR) NEGATIVE (Negative) SARS-CoV-2 RNA (RT-PCR) NEGATIVE (Negative) Independent Interpretation I performed an independent interpretation of an: EKG and Plain X-Ray Interpretation: My interpretation is in agreement with the radiologist's impression of this imaging study. L EXAMINATION: XR CHEST CLINICAL INFORMATION: fall, weakness COMPARISON: None available. TECHNIQUE: Frontal view of the chest was obtained. FINDINGS: No significant abnormality is noted involving the heart, lungs, mediastinum, or soft tissues. Mild to moderate degenerative changes are present in both shoulder joints. XR/XR chest 1V IMPRESSION: No acute disease. Electronically signed by: Keenan Rivero MD 03/16/2025 03:56 PM EDT RP Dictated By: Keenan Rivero MD Signed By: Electronically signed by Keenan Rivero MD 03/16/25 1556 I independently interpreted this EKG and am in agreement with the below findings: Vent. Rate: 68 BPM Atrial Rate: 68 BPM P-R Int: 150 ms QRS Dur: 76 ms QT Int: 396 ms P-R-T Axes: * 2 51 degrees QTcB Int: 421 ms Sinus rhythm with Premature atrial complexes Nonspecific ST abnormality When compared with ECG of 10-Oct-2024 15:17, No significant change was found DD/ 1519 Radiology Impression Discussion of test interpretation with radiology: I have reviewed the radiologist's reading. Independent Historian Clinical information obtained from an independent historian. History obtained from or confirmed by: EMS (EMS provided additional history and confirmed the history provided by the patient. ) and Other (Patient's daughter provided additional history and confirmed the history provided by the patient. ) Discharge Plan Discharge Clinical Impression: Fall Qualifiers: Encounter type: initial encounter Qualified Code(s): W19.XXXA - Unspecified fall, initial encounter Back pain Qualifiers: Back pain location: low back pain Chronicity: chronic Back pain laterality: u nspecified Sciatica presence: with sciatica Sciatica laterality: sciatica laterality unspecified Qualified Code(s): M54.40 - Lumbago with sciatica, unspecified side Patient Disposition: Home, Self-Care Instructions: Fall Prevention (ED) Additional Instructions: Seen in the emergency department for recurrent falls with back pain. You have a walker at home that you need to use for transfer and to help avoid walking. You had work up here that showed no evidence of neurovascular compromise or fracture. Home services of [facility] and physical therapy to be continued at your home. Return for concerns. Prescriptions: No Action escitalopram oxalate 5 mg tablet 5 mg PO DAILY amlodipine 5 mg tablet 5 mg PO DAILY aspirin 81 mg Tablet,Delayed Release (Dr/Ec) 81 mg PO DAILY lisinopril 5 mg tablet 5 mg PO DAILY acetaminophen 500 mg Tablet 1,000 mg PO Q6H PRN (Reason: hip pain) Referrals: [facility] [Outside] Print Language: Slovak
--- NOTE | 2025-03-16 15:04 | ECG_ITS ---
Test Reason : FALL Blood Pressure : */* mmHG Vent. Rate : 68 BPM Atrial Rate : 68 BPM P-R Int : 150 ms QRS Dur : 76 ms QT Int : 396 ms P-R-T Axes : * 2 51 degrees QTcB Int : 421 ms Sinus rhythm with Premature atrial complexes Nonspecific ST abnormality Abnormal ECG When compared with ECG of 10-Oct-2024 15:17, No significant change was found Referred By: Dara Lemus Electronically Signed By: Quentin Clements
[2025-03-16 15:31] LABS: MANUAL DIFF FLAG NO
[2025-03-16 15:38] LABS: Hematocrit 36.7 % (37.0-47.0); Hemoglobin 11.7 g/dl (12.0-16.0); Imm Gran Abs Auto 0.06 X10*3/uL (0.00-0.03); Imm Gran Pct Auto 0.5 % (0.0-0.4); Lymphocytes Absolute Auto 2.5 X10*3/uL (1.2-4.9); Mean Corpuscular HGB Conc 31.9 g/dl (31.0-35.0); Mean Corpuscular Hemoglobin 29.1 pg (27.0-33.0); Mean Corpuscular Volume 91.3 fL (80.0-98.0); NRBC Abs Auto 0.000 X10*3/uL (0.0-0.012); NRBC Pct Auto 0.0 /100WBC (0.0-0.2); Platelet Count 245 X10*3/uL (160-400); Red Blood Count 4.02 X10*6/uL (4.20-5.50); White Blood Count 12.5 X10*3/uL (4.8-10.8)
[2025-03-16 15:54] LABS: Alanine Aminotransferase 16 U/L (0-31); Albumin Level 3.9 g/dL (3.5-5.0); Anion Gap 12 (12-20); Aspartate Amino Transferase 21 U/L (5-31); Blood Urea Nitrogen 26 mg/dL (9-16); Calcium 10.2 mg/dL (8.4-10.2); Carbon Dioxide 26 mmol/L (22-29); Chloride 107 mmol/L (96-108); Creatinine Clr Calc Pharmacy 50.1; Estimated Glomerular Filt Rate > 60; Potassium 4.0 mmol/L (3.3-5.1); Sodium 141 mmol/L (135-145); Total Protein 6.3 g/dL (6.5-8.0)
[2025-03-16 16:34] LABS: Alkaline Phosphatase 102 U/L (39-117)
--- NOTE | 2025-03-16 16:51 | PC.NURSE ---
pt a&ox3, labs drawn by tech, pt stating she had pain, provider was notified and meds ordered, this nurse went to give the patient the medication and she refused the oxycodone but did take the flexeral. pt awaiting results of radiology.
--- OUTSIDE RECORDS SUMMARY | 2025-03-16 18:01 | XMS_ITS ---
Author Name [facility] Organization Unknown Care Team Organization Name Specialty Phone Email Start Date End [facility] 01/20/2025
--- OUTSIDE RECORDS SUMMARY | 2025-03-16 18:01 | XMS_ITS | Clinical Summary ---
Author Organization [facility] Address [address] [place] [address] [place] [phone] Phone Care Team Providers Care Lamp Replacer Name Role Phone Blaze King MD Primary Care Provider Unavail able Encounters Date Type Department Care Team Description 01/18/2025 9:10 AM EDT - 01/18/2025 11:59 PM EDT Hospital Encounter [facility] Laboratory [address] [place] [id number] Gayle Cespedes MD Discharge Disposition: Home or Self Care 01/18/2025 Transcribe Orders [facility] Specimen Processing [address] [place] [address] Gayle Cespedes MD Migraine without aura and with status migrainosus, not intractable (Primary Dx); Laceration of scalp with delay in treatment, sequela; Syncope and collapse; Long QT syndrome 01/12/2025 10:57 AM EDT - 01/12/2025 11:59 PM EDT Hospital Encounter [facility] Laboratory [address] [place] [id number] Gayle Cespedes MD Discharge Disposition: Home or Self Care 01/11/2025 8:31 AM EDT - 01/11/2025 11:59 PM EDT Hospital Encounter [facility] Laboratory [address] [place] [id number] Gayle Cespedes MD Discharge Disposition: Home or Self Care 01/11/2025 Transcribe Orders [facility] Specimen Processing [address] [place] [address] Gayle Cespedes MD Basilar artery syndrome (Primary Dx); Syncope and collapse; Long QT syndrome; Anemia, unspecified type; Essential hypertension, malignant 01/04/2025 8:58 AM EDT - 01/04/2025 11:59 PM EDT Hospital Encounter [facility] Laboratory [address] [place] [address] Gayle Cespedes MD Discharge Disposition: Home or Self Care 01/04/2025 Transcribe Orders [facility] Specimen Processing [address] [place] [address] Gayle Cespedes MD Fall, sequela (Primary Dx); Syncope, unspecified syncope type; Delirium from Last 3 Months Social History Tobacco Use Types Packs/Day Years Used Date Smoking Tobacco: Never Assessed Education Answer Date Recorded Are you interested in more education? Not on maria e e 09/28/2022 Are you concerned about learning? Not on file 09/28/2022 No 09/28/2022 No 09/28/2022 Digital Access Answer Date Recorded No 10/30/2022 No 10/30/2022 No 10/30/2022 Reliable internet access at home? Not on file 10/30/2022 Device with a working camera? Not on file Comments Unknown Sex and Gender Information Value Date Recorded Sex Assigned at Not on file Legal Sex Female 1:39 PM EDT Gender Identity Not on file Sexual Orientation Not on file Plan of Treatment Health Maintenance Due Date Last Done Comments Adult Td,Tdap Booster 1940 BLOOD PRESSURE 1940 DEPRESSION SCREENING 1952 PNEUMOCOCCAL VACCINES (50+ y ears) (1 of 1 - PCV) 01/13/1990 ZOSTER VACCINES (1 of 2) 01/13/1990 OSTEOPOROSIS SCREENING INITI AL (ONE-TIME) 01/13/2005 RSV VACCINE (1 - 1-dose 75+ series) 01/13/2015 INFLUENZA VACCINE (#1) 2025 COVID-19 VACCINE ( - 2024-2 6 season) 2025 HEPATITIS A VACCINES Aged Out No long er eligible based on patient's age to complete this topic HIB VACCINES Aged Out No longer eligi ble based on patient's age to complete this topic MENINGOCOCCAL VACCINES (ACWY) Aged Out No longer eligible based on patient's age to complete this topic MENINGOCOCCAL VACCINES (B) Aged Out N o longer eligible based on patient's age to complete this topic Medical Devices Not on file Procedures Procedure Name Priority Date/Time Associated Diagnosis Comments COMPREHENSIVE METABOLIC PANEL Routine 01/18/2025 5:42 AM EDT Migraine without aura and with status migrainosus, not intractable Laceration of scalp with delay in treatment, sequela Syncope and collapse Long QT syndrome CBC Routine 01/18/2025 5:42 AM EDT Migraine without aura and with status migrainosus, not intractable Laceration of scalp with delay in treatment, sequela Syncope and collapse Long QT syndrome CBC AND DIFFERENTIAL STAT 01/12/2025 10:22 AM EDT Fever, unspecified fever cause URINALYSIS W/REFLEX URINE CULTURE Routine 01/12/2025 7:20 AM EDT Fever, unspecified fever cause COMPREHENSIVE METABOLIC PANEL Routine 01/11/2025 8:20 AM EDT Basilar artery syndrome Syncope and collapse Long QT syndrome Anemia, unspecified type Essential hypertension, malignant CBC Routine 01/11/2025 8:20 AM EDT Basilar artery syndrome Syncope and collapse Long QT syndrome Anemia, unspecified type Essential hypertension, malignant MAGNESIUM Routine 01/04/2025 5:45 AM EDT Fall, sequela Syncope, unspecified syncope type Delirium CBC Routine 01/04/2025 5:45 AM EDT Fall, sequela Syncope, unspecified syncope type Delirium COMPREHENSIVE METABOLIC PANEL Routine 01/04/2025 5:45 AM EDT Fall, sequela Syncope, unspecified syncope type Delirium from Last 3 Months Results * (ABNORMAL) Comprehensive metabolic panel (01/18/2025 5:42 AM EDT) Only the most recent of3 resultswithin the time period is included. SODIUM 137 133 - 146 mmol/L [facility] POTASSIUM 4.7 3.3 - 5.1 mmol/L [facility] CHLORIDE 101 96 - 108 mmol/L [facility] CO2 27 21 - 35 mmol/L [facility] BUN 22(H) 6 - 19 mg/dL [facility] CREATININE 0.70 0.5 - 1.5 mg/dL [facility] GLUCOSE 85 70 - 99 mg/dL [facility] ALBUMIN 3.9 3.9 - 4.8 g/dL [facility] TOTAL PROTEIN 6.4(L) 6.5 - 8.0 g/dL [facility] CALCIUM 10.3 8.4 - 10.3 mg/dL [facility] ALKALINE PHOSPHATASE 116 39 - 117 U/L [facility] TOTAL BILIRUBIN <0.2 0.0 - 1.2 mg/dL [facility] AST 15 0 - 37 U/L [facility] ALT 14 0 - 40 U/L [facility] GLOBULIN 2.5 1 - 4.8 g/dL [facility] EGFR 85 >59 mL/min/1.7 3m2 [facility] Comment:Estimated glomerular filtration rate calculated using the CKD-EPI refit equation. ANION GAP 14 10 - 20 mmol/L [facility] Blood 01/18/2025 5:42 AM EDT 01/18/2025 9:39 AM EDT us Gayle Cespedes MD LAB BLOOD ORDERABLES Final Res ult [address] [address] * (ABNORMAL) CBC (01/18/2025 5:42 AM EDT) Only the most recent of3 resultswithin the time period is included. WBC 8.95 4.00 - 11.00 K/uL [facility] RBC 3.24(L) 4.00 - 5.20 M/uL [facility] HGB 10.0(L) 12.0 - 16.0 g/dL [facility] HCT 33.3(L) 36.0 - 46.0 % [facility] PLT 403 150 - 450 K/uL [facility] MCV 102.8(H) 80.0 - 100.0 fL [facility] MCH 30.9 27.0 - 31.0 pg [facility] MCHC 30.0(L) 32.0 - 36.0 g/dL [facility] RDW 13.1 11.5 - 14.5 % [facility] MPV 10.3 8.4 - 12.0 [facility] NRBC 0.00 0.00 /100 WBCs [facility] ABSOLUTE NRBC 0.00 0.00 K/uL [facility] Blood 01/18/2025 5:42 AM EDT 01/18/2025 9:39 AM EDT us Gayle Cespedes MD LAB BLOOD ORDERABLES Final Res ult Performing Organization Address City/State/[facility] Co de Phone Number [address] [phone] * (ABNORMAL) CBC and differential (01/12/2025 10:22 AM EDT) WBC 8.95 4.00 - 11.00 K/uL [facility] RBC 2.74(L) 4.00 - 5.20 M/uL [facility] HGB 8.7(L) 12.0 - 16.0 g/dL [facility] HCT 27.3(L) 36.0 - 46.0 % [facility] PLT 443 150 - 450 K/uL [facility] MCV 99.6 80.0 - 100.0 fL [facility] MCH 31.8(H) 27.0 - 31.0 pg [facility] MCHC 31.9(L) 32.0 - 36.0 g/dL [facility] RDW 13.7 11.5 - 14.5 % [facility] MPV 9.7 8.4 - 12.0 fL [facility] NRBC 0.00 0.00 /100 WBCs [facility] ABSOLUTE NRBC 0.00 0.00 K/uL [facility] DIFF METHOD Auto [facility] NEUTS 59.2 48.0 - 76.0 % [facility] LYMPHS 28.5 18.0 - 41.0 % [facility] MONOS 8.7 4.0 - 11.0 % [facility] EOS 2.5 0.0 - 5.0 % [facility] BASOS 0.8 0.0 - 1.5 % [facility] Granulocytes, immature (%) 0.3 0.0 - 0.9 % [facility] ABSOLUTE NEUTS 5.30 1.92 - 7.60 K/uL [facility] ABSOLUTE LYMPHS 2.55 0.72 - 4.10 K/uL [facility] ABSOLUTE MONOS 0.78 0.16 - 1.10 K/uL [facility] ABSOLUTE EOS 0.22 0.00 - 0.50 K/uL [facility] ABSOLUTE BASOS 0.07 0.00 - 0.15 K/uL [facility] Granulocytes, immature 0.03 0.00 - 0.09 K/uL [facility] Blood 01/12/2025 10:2 2 AM EDT 01/12/2025 11:33 AM EDT Gayle Cespedes MD LAB BLOOD ORDERABLES Final Res ult [address] [address] * Urinalysis w/reflex Urine Culture (01/12/2025 7:20 AM EDT) COLOR Yellow Yellow [facility] CLARITY Clear [facility] GLUCOSE Negative Negative [facility] BILI Negative Negative [facility] KETONES Negative Negative [facility] SPECIFIC GRAVITY 1.015 1.005 - 1.030 [facility] BLOOD Negative Negative [facility] PH 6.5 5.0 - 8.0 [facility] Protein-UA Negative Negative [facility] NITRITE Negative Negative [facility] Leukocyte esterase, ur Negative Negative [facility] Urine 01/12/2025 7:20 AM EDT 01/12/2025 11:34 AM EDT us Gayle Cespedes MD URINE ORDERABLES Final Result Performing Organization Address City/[facility]/ZIP Co de Phone Number [address] [address] * Magnesium (01/04/2025 5:45 AM EDT) MAGNESIUM 1.8 1.6 - 2.6 mg/dL [facility] Blood 01/04/2025 5:45 AM EDT 01/04/2025 9:27 AM EDT us Gayle Cespedes MD LAB BLOOD ORDERABLES Final Res ult [facility] [address] [place] [address] from Last 3 Months Insurance MEDICARE PART A & B [facility] MEDEX SUPPLEMENT MEDICARE PART A & B [employer] MED[employer] SUPPLEMENT MEDICARE PART A & B [employer] MEDEX SUPPLEMENT MEDICARE PART A & B [employer] MEDEX SUPPLEMENT MEDICARE PART A & B [employer] MEDEX SUPPLEMENT MEDICARE PART A & B Member Subscriber Plan / Payer (Ef fective 2006-Present) Name:Jojo Ball Member ID:[id number] Relation to Subscriber:Self Name:Jojo Ball Subscriber ID:[id number] Payer ID:[id number] Group ID:Not on file Type:Medicare Address: [employer] [facility] [address] [address] [facility] MEDEX SUPPLEMENT MEDICARE PART A & B [employer] MEDEX SUPPLEMENT MEDICARE PART A & B [employer] MEDEX SUPPLEMENT MEDICARE PART A & B [employer] [place] MEDEX SUPPLEMENT Care Teams Lamp Replacer Relationship Specialty Start Date End Date Blaze King MD PCP - General Endocrinology 10/23/18 Additional Source Comments The information contained in this document represents components of the legal health record. It is not the complete legal health record.[facility]
[2025-03-16 18:56] VITALS: BP 182/69; PULSE 64; RESP 18; TEMP 36.7; O2SAT 97
[2025-03-16] MEDS: oxyCODONE HCl Immed Release 5 MG TABLET PO (21:54)
[2025-03-16 23:19] VITALS: BP 168/68; PULSE 63; RESP 16; TEMP 36.9; O2SAT 92
--- NOTE | 2025-03-16 23:21 | PC.NURSE ---
Patient resting on stretcher, skin pwd, resp even and non labored, appears more comfortable after oxycodone administration. awaiting pt/cm eval
--- NOTE | 2025-03-17 05:58 | PC.NURSE ---
assumed care of patient at 0300, patient has gone to the bathroom x2 via wheelchair with EDT. patient often calls out requesting staff help, when patient is asked what she may need she stares and doesn't reply, patient stated by the time I get help I dont know what I need patient informed that we get to her as soon as we can as we were assisting other patients at the time. ED charge nurse made aware of patient needs
[2025-03-17 06:37] VITALS: BP 170/62; PULSE 63; RESP 14; TEMP 36.8; O2SAT 96
--- NOTE | 2025-03-17 08:27 | PC.NURSE ---
Pt calling out for food, tylenol. Given tylenol and heat pack. Food ordered. Pt reports back and left hip pain.
--- NOTE | 2025-03-17 09:07 | PC.NURSE ---
With patients permission daughter updated on current condition and plan of care. Patient medicated per aug, ate well for breakfast. Seen by PT , patient able to stand but could not ambualte d/t to pain in left hip and mid back pain. Provider aware. PT recommending st rehab
[2025-03-17 10:00] VITALS: O2SAT 87
[2025-03-17] MEDS: oxyCODONE HCl Immed Release 5 MG TABLET PO (10:05)
--- NOTE | 2025-03-17 10:13 | PC.NURSE ---
Per patient request daughter updated, daughter stating she wants her mother to go to [facility] if possible, case management aware
--- NOTE | 2025-03-17 10:27 | MHC.CM.ED ---
Received case management consult overnight. Patient came to the ER due to fall with back pain. Work up essentially negative. Physical therapy eval completed. Rehab is recommended. Does not appear patient has been inpatient in any facility in the past 30 days. Referral will be sent to all 3 acute rehab facilities. Continue to monitor for d/c needs.
[2025-03-17 10:51] LABS: Resp Syncy Virus RNA Qual PCR NEGATIVE (Negative); SARS COV2 PCR INHOUSE NEGATIVE (Negative)
--- NOTE | 2025-03-17 10:52 | PC.NURSE ---
Pt placed on 2L o2 while sleeping. his sats drop to 87% intermittently. reports that he has a sleep study scheduled. Pt resting now after dilaudid.
[2025-03-17 10:54] VITALS: BP 136/77; PULSE 86; RESP 11; O2SAT 92
--- NOTE | 2025-03-17 10:55 | PC.NURSE ---
Apnea noted briefly. reports this is baseline.
--- NOTE | 2025-03-17 12:33 | MHC.CM.ED ---
None of the acute rehab facilities are able to offer a bed. Met with patient in regards to discharge planning. Patient lives alone and is active with [facility]. PCP verified. Copy of HCP verified to be on file. Patient denies being inpatient in any facility in the past 30 days. Private pay SNF placement discussed. Patient states she does not have the funds to privately pay. Patient agreeable to T/W speaking with her daughter, Gayla. Spoke with Gayla via telephone at [phone]. Gayla has been staying with the patient recently to assist her at home. However Gayla lives in [place] and works. Private pay STR vs returning home with [facility] discussed. Gayla verifies patient is unable to privately pay for STR. Gayla is concerned about patient being able to safely return home because Gayla lives an hour away and works. Private pay home care and referral to [facility] for additional services at home discussed. Gayla verifies patient will have to return home. Requesting referral to [facility]. Referral made via [facility] to reach out to Gayla to see if patient qualifies for any additional help at home. Gayla will be on-site tomorrow 03/18 at 11am to transport patient home. Patient, Marv HANSEN and Susanna PARKS aware. Continue to monitor for d/c needs.
[2025-03-17 14:33] VITALS: BP 128/76; PULSE 72; RESP 20; TEMP 36.6; O2SAT 98
--- NOTE | 2025-03-17 15:46 | PHA.MEDREC ---
Addendum entered by Janet Senior RPh 03/17/25 17:08: [facility] REC REVIEWED BY [facility] Original Note: Pharmacy Consult ? Medication Reconciliation Pharmacy has completed the medication reconciliation. Patient was able to name all of her medications. Patient confirmed Amlodipine 5 mg , Escitalopram 5 mg , Lisinopril 5 mg and Aspirin 81 mg. Patient last had her medications yesterday.
[2025-03-17 16:00] VITALS: BP 136/63; PULSE 65; RESP 20; TEMP 36.9; O2SAT 96
[2025-03-17 20:00] VITALS: BP 126/58; PULSE 69; RESP 18; TEMP 36.2; O2SAT 97
--- NOTE | 2025-03-17 23:31 | PC.NURSE ---
assumed care of patient, pt requesting tylenol for pain medicated per aug. reached out to ED provider to order home medications.
[2025-03-18 05:24] VITALS: BP 184/77; PULSE 66; RESP 18; TEMP 36.9; O2SAT 94
[2025-03-18 08:41] VITALS: BP 136/71
[2025-03-18] MEDS: Aspirin Enteric Coated 81 MG TABLET.DR PO (08:41)
[2025-03-18 08:44] VITALS: BP 136/71; PULSE 69; RESP 14; TEMP 36.6; O2SAT 93
--- NOTE | 2025-03-18 11:00 | MHC.EDTECH ---
pt daughter at bedside for discharge. Pt tearful
--- NOTE | 2025-03-18 11:01 | MHC.EDTECH ---
pt daughter at bedside for discharge. Pt tearful. Daughter stating that she does not think pt is safe to go home at this time and asking to speak with someone. Rn
--- NOTE | 2025-03-18 11:33 | MHC.CM.ED ---
Met with patient and daughter in regards to discharge planning. Daughter is concerned patient is unable to safely return home. T/W reminded patient and daughter of conversation yesterday when it was discussed that patient does not qualify for inpatient hospital level of care, has not had a qualifying hospital stay and did not have the funds to privately pay for STR. Patient's daughter, Gayla, is concerned patient is dehydrated because patient's urine id dark. T/W offered for provider to meet with patient and Gayla. Both are agreeable. Cachorro horne. Continue to monitor for d/c needs.
[2025-03-18 11:55] VITALS: BP 136/71; PULSE 69; RESP 14; TEMP 36.6; O2SAT 93
--- OUTSIDE RECORDS SUMMARY | 2025-03-19 20:00 | XMS_ITS | Clinical Summary ---
Author Organization Unknown Care Team Providers Care [employer] Name Role Phone RAFAELA WYNN, GERARDO Unavailable Unavailable DIMITRY RN, LUL Unavailable Unavailab shashi HANKS PT, TRACEE Unavailable Unavailable ERMA POLICY SERVICE COORDINATOR, CHI Unavailable Unavailable READING OT, SHARONDA Unavailable Unavailable CATA RAOYN, YANA Unavailable Unavailable Payers Payer Name Policy Type Policy Number Effective Date Expira tion Date MEDICARE.NGS.PDGM [id number] Problems Condition Name Condition Details Condition Category Status Onset Date Resolution Date Last Treatment Date Treating Clinician Comments VERTEBRO-BAS ILAR ARTERY SYNDROME Active 01-20 00:00: 00 ESSENTIAL (PRIMARY) HYPERTENSION Active 01-20 00:00: 00 ANXIETY DISORDER, UNSPECIFIED Active 01-20 00:00: 00 ANEMIA, UNSPECIFIED Active 01-20 00:00: 00 VITAMIN D DEFICIENCY, UNSPECIFIED Active 01-20 00:00: 00 SPINAL STENOSIS, SITE UNSPECIFIED Active 01-20 00:00: 00 UNILATERAL PRIMARY OSTEOARTHRIT IS, LEFT HIP Active 01-20 00:00: 00 URINARY TRACT INFECTION, SITE NOT SPECIFIED Active 01-20 00:00: 00 HISTORY OF FALLING Active 01-20 00:00: 00 Allergies, Adverse Reactions, Alerts Allergy Name Allergy Type Status Severity Reaction(s) Onset Date Inactive Date Treating Clinician Comments CONTRAST MEDIA GADOLINIUM Propensity to adverse reactions Active 01-20 08:58: 18 Medications Ordered Medication Name Filled Medication Name Start Date Stop Date Current Medication? Ordering Clinician Indication Dosage Frequency Signature (SIG) Comments Components acetaminoph en 500 mg tablet 11-06 00:00: 00 Yes [id number] PAIN 2 tablet EVERY 8 HOURS 2 tablet EVERY 8 HOURS (route: oral) Med Classific ation: Analgesic , Anti-infl ammatory or Antipyret ic amlodipine 5 mg tablet 11-06 00:00: 00 Yes [id number] HIGH BLOOD PRESSURE 1 tablet DAILY 1 tablet DAILY (route: oral) Med Classific ation: Cardiovas cular Therapy Agents aspirin 81 mg tablet,stormy yed release 11-06 00:00: 00 Yes [id number] HX TIA, CVA 1 tablet DAILY 1 tablet DAILY (route: oral) Med Classific ation: Hematolog ical Agents Lexapro 5 mg tablet 11-06 00:00: 00 Yes [id number] SADNESS 1 tablet DAILY 1 tablet DAILY (route: oral) Med Classific ation: Central Nervous System Agents lisinopril 5 mg tablet 11-06 00:00: 00 12-02 23:59 :00 No [id number] HIGH BLOOD PRESSURE 1 tablet DAILY 1 tablet DAILY (route: oral) Med Classific ation: Cardiovas cular Therapy Agents lisinopril 10 mg tablet 12-02 00:00: 00 Yes [id number] HIGH BLOOD PRESSURE 1 tablet DAILY 1 tablet DAILY (route: oral) Med Classific ation: Cardiovas cular Therapy Agents Vital Signs Vital Name Observation Time Observation Value Commen ts Temperature 2025-03-11 09:10:00.000 97.1 [degF] Temperature 2025-03-08 12:35:00.000 98.1 [degF] Temperature 2025-03-02 15:52:00.000 97.1 [degF] Temperature 2025-03-02 11:07:00.000 98.5 [degF] Temperature 2025-03-01 13:51:00.000 98 [degF] Temperature 2025-02-25 15:35:00.000 97.1 [degF] Temperature 2025-02-22 09:21:00.000 98.5 [degF] Temperature 2025-02-18 11:10:00.000 97.3 [degF] Temperature 2025-02-16 12:52:00.000 98.6 [degF] Temperature 2025-02-15 09:32:00.000 98.6 [degF] Temperature 2025-02-08 14:49:00.000 96.9 [degF] Temperature 2025-02-08 09:18:00.000 98.4 [degF] Temperature 2025-02-05 09:20:00.000 97.1 [degF] Temperature 2025-02-04 15:31:00.000 97 [degF] Temperature 2025-02-02 14:59:00.000 97.1 [degF] Temperature 2025-01-28 12:06:00.000 97.3 [degF] Temperature 2025-01-27 11:49:00.000 98.6 [degF] Temperature 2025-01-26 09:43:00.000 98.7 [degF] Temperature 2025-01-21 12:27:00.000 98.4 [degF] Temperature 2025-01-20 12:54:00.000 97.8 [degF] BMI (%) 2025-01-20 09:13:18.000 21 kg/m2 Height 2025-01-20 09:13:07.000 64 [in_us] Pulse 2025-03-11 09:10:00.000 72 /min Pulse 2025-03-08 12:35:00.000 73 /min Pulse 2025-03-02 15:52:00.000 77 /min Pulse 2025-03-02 11:07:00.000 71 /min Pulse 2025-03-01 13:51:00.000 67 /min Pulse 2025-02-25 15:35:00.000 60 /min Pulse 2025-02-22 09:21:00.000 68 /min Pulse 2025-02-18 11:10:00.000 60 /min Pulse 2025-02-16 12:52:00.000 70 /min Pulse 2025-02-15 09:32:00.000 66 /min Pulse 2025-02-08 14:49:00.000 60 /min Pulse 2025-02-08 09:18:00.000 64 /min Pulse 2025-02-05 09:20:00.000 62 /min Pulse 2025-02-04 15:31:00.000 64 /min Pulse 2025-02-02 14:59:00.000 64 /min Pulse 2025-01-28 12:06:00.000 69 /min Pulse 2025-01-27 11:49:00.000 72 /min Pulse 2025-01-26 09:43:00.000 78 /min Pulse 2025-01-21 12:27:00.000 71 /min Pulse 2025-01-20 12:54:00.000 78 /min O2 Saturation (%) 2025-03-11 09:10:00.000 96 % O2 Saturation (%) 2025-03-08 12:35:00.000 97 % O2 Saturation (%) 2025-03-02 15:52:00.000 97 % O2 Saturation (%) 2025-03-02 11:07:00.000 97 % O2 Saturation (%) 2025-03-01 13:51:00.000 98 % O2 Saturation (%) 2025-02-25 15:35:00.000 97 % O2 Saturation (%) 2025-02-22 09:21:00.000 97 % O2 Saturation (%) 2025-02-18 11:10:00.000 97 % O2 Saturation (%) 2025-02-15 09:32:00.000 97 % O2 Saturation (%) 2025-02-05 09:20:00.000 97 % O2 Saturation (%) 2025-02-04 15:31:00.000 97 % O2 Saturation (%) 2025-02-02 14:59:00.000 96 % O2 Saturation (%) 2025-01-28 12:06:00.000 96 % O2 Saturation (%) 2025-01-27 11:49:00.000 97 % O2 Saturation (%) 2025-01-26 09:43:00.000 97 % O2 Saturation (%) 2025-01-21 12:27:00.000 96 % O2 Saturation (%) 2025-01-20 12:54:00.000 95 % Respirations 2025-03-11 09:10:00.000 16 /min Respirations 2025-03-08 12:35:00.000 18 /min Respirations 2025-03-02 15:52:00.000 16 /min Respirations 2025-03-02 11:07:00.000 18 /min Respirations 2025-03-01 13:51:00.000 18 /min Respirations 2025-02-25 15:35:00.000 16 /min Respirations 2025-02-22 09:21:00.000 18 /min Respirations 2025-02-18 11:10:00.000 18 /min Respirations 2025-02-16 12:52:00.000 18 /min Respirations 2025-02-15 09:32:00.000 17 /min Respirations 2025-02-08 14:49:00.000 16 /min Respirations 2025-02-08 09:18:00.000 18 /min Respirations 2025-02-05 09:20:00.000 18 /min Respirations 2025-02-04 15:31:00.000 16 /min Respirations 2025-02-02 14:59:00.000 16 /min Respirations 2025-01-28 12:06:00.000 18 /min Respirations 2025-01-27 11:49:00.000 18 /min Respirations 2025-01-26 09:43:00.000 18 /min Respirations 2025-01-21 12:27:00.000 18 /min Respirations 2025-01-20 12:54:00.000 16 /min Weight (lbs) 2025-01-20 09:13:18.000 125 [lb_av] Systolic Blood Pressure 2025-03-11 09:10:00.000 138 mm [Hg] Systolic Blood Pressure 2025-03-08 12:35:00.000 122 mm [Hg] Systolic Blood Pressure 2025-03-02 15:52:00.000 120 mm [Hg] Systolic Blood Pressure 2025-03-02 11:07:00.000 128 mm [Hg] Systolic Blood Pressure 2025-03-01 13:51:00.000 145 mm [Hg] Systolic Blood Pressure 2025-02-25 15:35:00.000 118 mm [Hg] Systolic Blood Pressure 2025-02-22 09:21:00.000 140 mm [Hg] Systolic Blood Pressure 2025-02-18 11:10:00.000 128 mm [Hg] Systolic Blood Pressure 2025-02-16 12:52:00.000 126 mm [Hg] Systolic Blood Pressure 2025-02-15 09:32:00.000 110 mm [Hg] Systolic Blood Pressure 2025-02-08 14:49:00.000 130 mm [Hg] Systolic Blood Pressure 2025-02-08 09:18:00.000 141 mm [Hg] Systolic Blood Pressure 2025-02-05 09:20:00.000 140 mm [Hg] Systolic Blood Pressure 2025-02-04 15:31:00.000 139 mm [Hg] Systolic Blood Pressure 2025-02-02 14:59:00.000 138 mm [Hg] Systolic Blood Pressure 2025-01-28 12:06:00.000 120 mm [Hg] Systolic Blood Pressure 2025-01-27 11:49:00.000 140 mm [Hg] Systolic Blood Pressure 2025-01-26 09:43:00.000 146 mm [Hg] Systolic Blood Pressure 2025-01-21 12:27:00.000 110 mm [Hg] Systolic Blood Pressure 2025-01-20 12:54:00.000 102 mm [Hg] Diastolic Blood Pressure 2025-03-11 09:10:00.000 78 mm [Hg] Diastolic Blood Pressure 2025-03-08 12:35:00.000 65 mm [Hg] Diastolic Blood Pressure 2025-03-02 15:52:00.000 70 mm [Hg] Diastolic Blood Pressure 2025-03-02 11:07:00.000 54 mm [Hg] Diastolic Blood Pressure 2025-03-01 13:51:00.000 74 mm [Hg] Diastolic Blood Pressure 2025-02-25 15:35:00.000 60 mm [Hg] Diastolic Blood Pressure 2025-02-22 09:21:00.000 90 mm [Hg] Diastolic Blood Pressure 2025-02-18 11:10:00.000 68 mm [Hg] Diastolic Blood Pressure 2025-02-16 12:52:00.000 74 mm [Hg] Diastolic Blood Pressure 2025-02-15 09:32:00.000 70 mm [Hg] Diastolic Blood Pressure 2025-02-08 14:49:00.000 80 mm [Hg] Diastolic Blood Pressure 2025-02-08 09:18:00.000 70 mm [Hg] Diastolic Blood Pressure 2025-02-05 09:20:00.000 70 mm [Hg] Diastolic Blood Pressure 2025-02-04 15:31:00.000 60 mm [Hg] Diastolic Blood Pressure 2025-02-02 14:59:00.000 80 mm [Hg] Diastolic Blood Pressure 2025-01-28 12:06:00.000 60 mm [Hg] Diastolic Blood Pressure 2025-01-27 11:49:00.000 68 mm [Hg] Diastolic Blood Pressure 2025-01-26 09:43:00.000 80 mm [Hg] Diastolic Blood Pressure 2025-01-21 12:27:00.000 60 mm [Hg] Diastolic Blood Pressure 2025-01-20 12:54:00.000 78 mm [Hg] Plan of Treatment Planned Activity Planned Date Details Comments Future Scheduled Test PHYSICAL T HERAPIST TO EVALUATE FOR SAFETY AND STRENGTHENING. [code = PHYSICAL THERAPIST TO EVALUATE FOR SAFETY AND STRENGTHENING.] Future Scheduled Test OCCUPATION AL THERAPIST TO EVALUATE FOR ADL SAFETY. [code = OCCUPATIONAL THERAPIST TO EVALUATE FOR ADL SAFETY.] Future Scheduled Test FALL REDUC TION MANAGEMENT; RN TO ASSESS AND OBSERVE, DIE SINKER/LABORER ROAD TO OBSERVE FALL RISK FACTORS AND EDUCATE PATIENT/CAREGIVER ON STRATEGIES TO MINIMIZE THE RISK OF FALLING. [code = FALL REDUCTION MANAGEMENT; RN TO ASSESS AND OBSERVE, DIE SINKER/LABORER ROAD TO OBSERVE FALL RISK FACTORS AND EDUCATE PATIENT/CAREGIVER ON STRATEGIES TO MINIMIZE THE RISK OF FALLING.] Future Scheduled Test GENITOURIN CARLINE MANAGEMENT; RN TO ASSESS AND TEACH, DIE SINKER/LABORER ROAD TO OBSERVE AND TEACH RELATED TO ALTERED GENITOURINARY STATUS TO MINIMIZE COMPLICATIONS AND REDUCE HOSPITALIZATION. [code = GENITOURINARY MANAGEMENT; RN TO ASSESS AND TEACH, DIE SINKER/LABORER ROAD TO OBSERVE AND TEACH RELATED TO ALTERED GENITOURINARY STATUS TO MINIMIZE COMPLICATIONS AND REDUCE HOSPITALIZATION.] Future Scheduled Test URINARY IN CONTINENCE MANAGEMENT; RN TO ASSESS AND TEACH, DIE SINKER/LVNTO OBSERVE AND TEACH MANAGEMENT OF URINARY INCONTINENCE. TEACH/INSTRUCT ON PREVENTING INFECTION AND SKIN BREAKDOWN. RN/DIE SINKER/LABORER ROAD MAY INSTRUCT IN BLADDER TRAINING PROGRAM INDICATED. [code = URINARY INCONTINENCE MANAGEMENT; RN TO ASSESS AND TEACH, DIE SINKER/LVNTO OBSERVE AND TEACH MANAGEMENT OF URINARY INCONTINENCE. TEACH/INSTRUCT ON PREVENTING INFECTION AND SKIN BREAKDOWN. RN/DIE SINKER/LABORER ROAD MAY INSTRUCT IN BLADDER TRAINING PROGRAM INDICATED.] Future Scheduled Test RN TO OBSE RVE, ASSESS, EVALUATE, AND DEVELOP AN INDIVIDUALIZED PLAN OF CARE. AGENCY MAY ACCEPT ORDERS FROM CONSULTING PHYSICIANS. RN TO OBSERVE AND ASSESS, DIE SINKER/LABORER ROAD TO OBSERVE FOR RISK FOR FALLS AND INSTRUCT IN FALL PREVENTION, HOME SAFETY, MEDICATION MANAGEMENT, INFECTION PREVENTION, AND NUTRITION MANAGEMENT. RN/DIE SINKER/LABORER ROAD NURSE MAY PERFORM O2 SATURATION LEVEL ON ADMISSION AND PRN FOR RN TO ASSESS/DIE SINKER TO OBSERVE PATIENT, WITH NOTIFICATION TO THE PHYSICIAN IF SATURATION IS 90% IN THE ABSENCE OF MORE SPECIFIC PARAMETERS FROM THE PHYSICIAN. AGENCY MAY PERFORM A RESUMPTION OF CARE VISIT FOLLOWING ANY HOSPITAL ADMISSION. RN/DIE SINKER/LABORER ROAD TO MONITOR CO-MORBID CONDITIONS LISTED ON THE PLAN OF CARE AND ANY NEW CONDITIONS THAT PRESENT THEMSELVES DURING THIS EPISODE TO IDENTIFY CHANGES AND INTERVENE TO MINIMIZE COMPLICATIONS. [code = RN TO OBSERVE, ASSESS, EVALUATE, AND DEVELOP AN INDIVIDUALIZED PLAN OF CARE. AGENCY MAY ACCEPT ORDERS FROM CONSULTING PHYSICIANS. RN TO OBSERVE AND ASSESS, DIE SINKER/LABORER ROAD TO OBSERVE FOR RISK FOR FALLS AND INSTRUCT IN FALL PREVENTION, HOME SAFETY, MEDICATION MANAGEMENT, INFECTION PREVENTION, AND NUTRITION MANAGEMENT. RN/DIE SINKER/LABORER ROAD NURSE MAY PERFORM O2 SATURATION LEVEL ON ADMISSION AND PRN FOR RN TO ASSESS/DIE SINKER TO OBSERVE PATIENT, WITH NOTIFICATION TO THE PHYSICIAN IF SATURATION IS 90% IN THE ABSENCE OF MORE SPECIFIC PARAMETERS FROM THE PHYSICIAN. AGENCY MAY PERFORM A RESUMPTION OF CARE VISIT FOLLOWING ANY HOSPITAL ADMISSION. RN/DIE SINKER/LABORER ROAD TO MONITOR CO-MORBID CONDITIONS LISTED ON THE PLAN OF CARE AND ANY NEW CONDITIONS THAT PRESENT THEMSELVES DURING THIS EPISODE TO IDENTIFY CHANGES AND INTERVENE TO MINIMIZE COMPLICATIONS.] Future Scheduled Test PAIN MANAG EMENT; RN TO ASSESS AND TEACH, LABORER ROAD/DIE SINKER TO OBSERVE AND TEACH AND PROVIDE EDUCATION ON PAIN MANAGEMENT TECHNIQUES. [code = PAIN MANAGEMENT; RN TO ASSESS AND TEACH, LABORER ROAD/DIE SINKER TO OBSERVE AND TEACH AND PROVIDE EDUCATION ON PAIN MANAGEMENT TECHNIQUES.] Future Scheduled Test RISK FOR H OSPITALIZATION; RN TO ASSESS/TEACH, LABORER ROAD/DIE SINKER TO OBSERVE/TEACH PATIENT/CAREGIVER ON RISK FOR HOSPITALIZATION/EMERGENCY ROOM VISITS, TEACH SIGNS AND SYMPTOMS THAT PUT PATIENT AT RISK, WHEN TO NOTIFY NURSE/PHYSICIAN OF COMPLICATIONS/DECLINE, AND WHEN TO CALL 911. [code = RISK FOR HOSPITALIZATION; RN TO ASSESS/TEACH, LABORER ROAD/DIE SINKER TO OBSERVE/TEACH PATIENT/CAREGIVER ON RISK FOR HOSPITALIZATION/EMERGENCY ROOM VISITS, TEACH SIGNS AND SYMPTOMS THAT PUT PATIENT AT RISK, WHEN TO NOTIFY NURSE/PHYSICIAN OF COMPLICATIONS/DECLINE, AND WHEN TO CALL 911.] Future Scheduled Test CARDIOVASC ULAR SYSTEM; RN TO ASSESS/TEACH, DIE SINKER/LABORER ROAD TO OBSERVE/TEACH RELATED TO ALTERED CARDIOVASCULAR STATUS TO MINIMIZE COMPLICATIONS AND REDUCE HOSPITALIZATION. [code = CARDIOVASCULAR SYSTEM; RN TO ASSESS/TEACH, DIE SINKER/LABORER ROAD TO OBSERVE/TEACH RELATED TO ALTERED CARDIOVASCULAR STATUS TO MINIMIZE COMPLICATIONS AND REDUCE HOSPITALIZATION.] Future Scheduled Test HYPERTENSI ON MANAGEMENT; RN TO ASSESS AND TEACH, DIE SINKER/LABORER ROAD TO OBSERVE AND TEACH WARNING SIGNS AND SYMPTOMS TO AVOID HOSPITALIZATION. [code = HYPERTENSION MANAGEMENT; RN TO ASSESS AND TEACH, DIE SINKER/LABORER ROAD TO OBSERVE AND TEACH WARNING SIGNS AND SYMPTOMS TO AVOID HOSPITALIZATION.] Future Scheduled Test MEDICATION MANAGEMENT; RN/DIE SINKER/LABORER ROAD TO REVIEW MEDICATIONS FOR INTERACTIONS, EFFECTIVENESS OF DRUG THERAPY, AND SIGNS/SYMPTOMS OF ADVERSE REACTIONS. MAY INSTRUCT AND REINFORCE MEDICATION TEACHING RELATED TO THE USE OF MEDICATIONS, DOSAGE, FREQUENCY, PURPOSE, SIDE EFFECTS, AND TO REPORT COMPLICATIONS. [code = MEDICATION MANAGEMENT; RN/DIE SINKER/LABORER ROAD TO REVIEW MEDICATIONS FOR INTERACTIONS, EFFECTIVENESS OF DRUG THERAPY, AND SIGNS/SYMPTOMS OF ADVERSE REACTIONS. MAY INSTRUCT AND REINFORCE MEDICATION TEACHING RELATED TO THE USE OF MEDICATIONS, DOSAGE, FREQUENCY, PURPOSE, SIDE EFFECTS, AND TO REPORT COMPLICATIONS.] Future Scheduled Test AGENCY MAY PERFORM A RESUMPTION OF CARE VISIT FOLLOWING ANY HOSPITAL ADMISSION. OT TO EVALUATE, OBSERVE / ASSESS, AND MONITOR, ANNIA TO OBSERVE AND MONITOR, PROVIDE SKILLED THERAPEUTIC INTERVENTION, ACTIVITY, EDUCATION, AND TRAINING TO ADDRESS; BATHING/SHOWERING (OT/ANNIA) TOILETING HYGIENE (OT/OUTDOOR EMERGENCY CARE TECHNICIAN) TOILET TRANSFER (OT/ANNIA) BATH/SHOWER TRANSFER (OT/OUTDOOR EMERGENCY CARE TECHNICIAN) HOME ACTIVITY / EXERCISE PROGRAM (OT/ANNIA) POSTURAL CONTROL/BALANCE (OT/ANNIA) THERAPEUTIC EXERCISE (OT/OUTDOOR EMERGENCY CARE TECHNICIAN) OT/ANNIA TO MONITOR AND EDUCATE ON OXYGEN SATURATION DURING ADLS/IADLS, NOTIFY PHYSICIAN AND/OR THE RN CLINICAL TIRE WRAPPER FOR PHYSICIAN NOTIFICATION AND IF O2 SATS BELOW 90% AFTER 10 MIN OF REST. OT/ANNIA MAY EDUCATE ON PAIN MANAGEMENT CLINICALLY INDICATED. OT/ANNIA TO MONITOR FOR SIGNS AND SYMPTOMS OF UTI AND EDUCATE PATIENT/CAREGIVER TO MINIMIZE RISK OF DEVELOPING A UTI. OT / OUTDOOR EMERGENCY CARE TECHNICIAN TO IDENTIFY FALL RISK FACTORS; EDUCATE THE PATIENT/CAREGIVER ON WAYS TO REDUCE FALL RISK FACTORS AND ESTABLISH HOME EXERCISE PROGRAM TO MINIMIZE FALL RISK. MAY TEACH THE PATIENT FLOOR RECOVERY WHEN CLINICALLY APPROPRIATE. [code = AGENCY MAY PERFORM A RESUMPTION OF CARE VISIT FOLLOWING ANY HOSPITAL ADMISSION. OT TO EVALUATE, OBSERVE / ASSESS, AND MONITOR, ANNIA TO OBSERVE AND MONITOR, PROVIDE SKILLED THERAPEUTIC INTERVENTION, ACTIVITY, EDUCATION, AND TRAINING TO ADDRESS; BATHING/SHOWERING (OT/OUTDOOR EMERGENCY CARE TECHNICIAN) TOILETING HYGIENE (OT/OUTDOOR EMERGENCY CARE TECHNICIAN) TOILET TRANSFER (OT/ANNIA) BATH/SHOWER TRANSFER (OT/ANNIA) HOME ACTIVITY / EXERCISE PROGRAM (OT/ANNIA) POSTURAL CONTROL/BALANCE (OT/ANNIA) THERAPEUTIC EXERCISE (OT/ANNIA) OT/OUTDOOR EMERGENCY CARE TECHNICIAN TO MONITOR AND EDUCATE ON OXYGEN SATURATION DURING ADLS/IADLS, NOTIFY PHYSICIAN AND/OR THE RN CLINICAL TIRE WRAPPER FOR PHYSICIAN NOTIFICATION AND IF O2 SATS BELOW 90% AFTER 10 MIN OF REST. OT/OUTDOOR EMERGENCY CARE TECHNICIAN MAY EDUCATE ON PAIN MANAGEMENT CLINICALLY INDICATED. OT/ANNIA TO MONITOR FOR SIGNS AND SYMPTOMS OF UTI AND EDUCATE PATIENT/CAREGIVER TO MINIMIZE RISK OF DEVELOPING A UTI. OT / ANNIA TO IDENTIFY FALL RISK FACTORS; EDUCATE THE PATIENT/CAREGIVER ON WAYS TO REDUCE FALL RISK FACTORS AND ESTABLISH HOME EXERCISE PROGRAM TO MINIMIZE FALL RISK. MAY TEACH THE PATIENT FLOOR RECOVERY WHEN CLINICALLY APPROPRIATE.] Goal Patient Goal - GET STRONGER Goal Provider Goal - Goal Provider Goal - Goal Provider Goal - PATIENT/CAREGIVER WILL VERBALIZE/DEMONSTRATE UNDERSTANDING OF FALL RISK FACTORS AND IMPLEMENT STRATEGIES TO MINIMIZE FALL RISK. PATIENT/CAREGIVER WILL VERBALIZE/DEMONSTRATE AN ABILITY TO ADHERE TO FALL REDUCTION SELF-MANAGEMENT AND LIFE-STYLE CHANGES BY END OF EPISODE. Goal Provider Goal - PATIENT / CAREGIVER WILL VERBALIZE/DEMONSTRATE UNDERSTANDING OF MEASURES TO MANAGE ALTERED GENITOURINARY STATUS BY END OF EPISODE. Goal Provider Goal - PATIENT/CAREGIVER WILL VERBALIZE/DEMONSTRATE UNDERSTANDING OF CARE AND MANAGEMENT OF URINARY INCONTINENCE BY END OF EPISODE. Goal Provider Goal - A PLAN OF CARE WILL BE ESTABLISHED THAT MEETS THE PATIENT S NEEDS. PATIENT WILL DEMONSTRATE OXYGEN SATURATION WITHIN NORMAL LIMITS OR PATIENT S OPTIMAL LEVEL ESTABLISHED BY THE PHYSICIAN THROUGHOUT CARE. CHANGES TO CO-MORBID CONDITIONS AND ANY NEW CONDITIONS WILL BE IDENTIFIED AND REPORTED TO THE PHYSICIAN. Goal Provider Goal - PATIENT / CAREGIVER WILL VERBALIZE / DEMONSTRATE UNDERSTANDING OF PAIN CONTROL MEASURES BY END OF EPISODE. Goal Provider Goal - PATIENT/CAREGIVER WILL VERBALIZE UNDERSTANDING OF SIGNS AND SYMPTOMS THAT PUT THE PATIENT AT RISK FOR HOSPITALIZATION /EMERGENCY ROOM VISITS, WHEN TO NOTIFY NURSE/PHYSICIAN OF COMPLICATIONS/DECLINE AND WHEN TO CALL 911. Goal Provider Goal - PATIENT / CAREGIVER WILL VERBALIZE/DEMONSTRATE UNDERSTANDING OF MEASURES TO MANAGE ALTERED CARDIOVASCULAR STATUS BY EOE Goal Provider Goal - PATIENT / CAREGIVER WILL VERBALIZE/DEMONSTRATE AN ABILITY TO ADHERE TO SELF-MANAGEMENT OF HTN TO MINIMIZE COMPLICATIONS AND AVOID HOSPITALIZATION BY END OF EPISODE. Goal Provider Goal - PATIENT/CAREGIVER TO VERBALIZE, AND CONSISTENTLY DEMONSTRATE EFFECTIVE, SAFE MANAGEMENT OF MEDICATION INCLUDING KNOWLEDGE OF EFFECTIVENESS, POTENTIAL SIDE EFFECTS AND DRUG REACTIONS AND WHEN TO CONTACT THE APPROPRIATE CARE PROVIDER. PATIENT/CAREGIVER WILL BE ABLE TO VERBALIZE UNDERSTANDING OF MEDICATION REGIMEN AND ACCURATELY TAKE MEDICATIONS PRESCRIBED WITHOUT ADVERSE EFFECTS BY END OF EPISODE. Goal Provider Goal - OT LTG: PATIENT WILL DEMONSTRATE IMPROVED ABILITY TO PERFORM BATHING/SHOWERING AND REDUCE CAREGIVER BURDEN FROM MAX A TO MIN A WITHIN 8 WEEKS. OT LTG: PATIENT WILL DEMONSTRATE IMPROVED ABILITY TO PERFORM TOILET HYGIENE AND REDUCE THE RISK OF DEVELOPING A UTI FROM MIN A TO IND WITHIN 8 WEEKS OT LTG: PATIENT WILL DEMONSTRATE IMPROVED ABILITY TO PERFORM TOILET TRANSFERS TO REDUCE FALL RISK AND RISK OF INCONTINENCE AND UTI DEVELOPMENT FROM CGA TO IND WITHIN 8 WEEKS OT STG: PATIENT WILL DEMONSTRATE IMPROVED ABILITY AND SAFETY TO PERFORM SHOWER TRANSFER WITH MODERATE ASSISTANCE WITHIN 4 WEEKS OT LTG: PATIENT WILL DEMONSTRATE IMPROVED ABILITY AND SAFETY TO PERFORM BATH/SHOWER TRANSFER FROM MAX A TO MIN A WITHIN 8 WEEKS. OT LTG: PATIENT/CAREGIVER WILL BE ABLE TO DEMONSTRATE BUE STRENGTH EXERCISES / ACTIVITIES IN ORDER TO IMPROVE BUE STRENGTH FROM UNABLE TO SET UP A WITHIN 8 WEEKS. OT LTG: PATIENT WILL DEMONSTRATE IMPROVED POSTURAL CONTROL AND DECREASED FALL RISK EVIDENCED BY AN IMPROVEMENT IN FUNCTIONAL REACH SCORE FROM 2 IN TO 6 IN WITHIN 8 WEEKS IN ORDER TO DECREASE RISK OF FALLING. OT LTG: PATIENT WILL DEMONSTRATE IMPROVED BUE MUSCLE STRENGTH EVIDENCED BY AN IMPROVEMENT IN MMT/FUNCTIONAL STRENGTH FROM 3+/5 TO 4/5 WITHIN 8 WEEKS IN ORDER TO INCREASE INDEPENDENCE WITH ADLS AND FUNCTIONAL TRANSFERS. OT LTG: PATIENT WILL MAINTAIN OXYGEN SATURATION WITHIN PHYSICIAN ORDERED PARAMETERS THROUGHOUT THE EPISODE OF CARE. OT LTG: PATIENT WILL DEMONSTRATE UNDERSTANDING OF PAIN MANAGEMENT TECHNIQUES NEEDED DURING EPISODE OF CARE OT GOAL: PATIENT WILL NOT EXHIBIT SIGNS AND SYMPTOMS OF UTI THROUGHOUT THE EPISODE OF CARE. OT LTG: PATIENT/CAREGIVER WILL BE ABLE TO IMPLEMENT RECOMMENDATIONS SPECIFIC TO FALL REDUCTION FOR IMPROVED ADL/IADL COMPLETION AND HOME SAFETY BY END OF EPISODE. Encounters Start Date/Time End Date/Time Encounter Type Admission Type Attending [facility] Care Department Encounter ID Discharge Date Discharge Status Discharge Condition Discharge Reason Percent Goals Met 2025-01-20 00:00:00 2025-03-20 00:00:00 Outpatient LUL GARCIA [facility] [id number]
== END 2025-03-18 11:58 | disposition home or self-care (01) ==
PROVIDERS: Physician Assistant Medical; Emergency Provider Emergency Medicine; PCP Internal Medicine
DX: M54.40 Lumbago with sciatica, unspecified side (principal); I10 Essential (primary) hypertension; Z86.73 Personal history of transient ischemic attack (TIA), and cerebral infarction without residual deficits; Z91.81 History of falling; Z79.899 Other long term (current) drug therapy; W01.0XXA Fall on same level from slipping, tripping and stumbling without subsequent striking against object, initial encounter; Y93.89 Activity, other specified; Y92.090 Kitchen in other non-institutional residence as the place of occurrence of the external cause; Y99.8 Other external cause status
CPT/HCPCS: 36415; 70450; 71045; 72125; 72128; 72131; 80053; 85025; 87637; 93005; 97162; 99285

== ENCOUNTER → 2025-03-16 15:04 | Outpatient (BNV) | payer MEDICARE, SELFPAY | PROVIDERS: PCP Internal Medicine; Visit Provider Radiology Diagnostic Radiology | DX: S09.90XA Unspecified injury of head, initial encounter (principal); M54.9 Dorsalgia, unspecified; R53.1 Weakness | CPT/HCPCS: 71045 ==

== ENCOUNTER → 2025-03-16 15:04 | Outpatient (BNV) | payer MEDICARE, SELFPAY | PROVIDERS: Emergency Provider Emergency Medicine; PCP Internal Medicine; Visit Provider Internal Medicine Cardiovascular Disease | DX: I49.1 Atrial premature depolarization (principal) | CPT/HCPCS: 93010 ==